=== PATIENT | female | born 1975 | race American Indian/Alaskan Native ===

== ENCOUNTER 2018-08-06 22:35 | Emergency (ER) | payer OTHER, SELFPAY ==
[2018-08-06 22:41] VITALS: BP 172/92; PULSE 94; RESP 20; O2SAT 97
[2018-08-06 22:43] VITALS: TEMP 36.7
--- NOTE | 2018-08-06 22:46 | ED_ITS ---
HPI - Anxiety General Chief Complaint: Anxiety Stated Complaint: FEELS TINGLY IN FACE Time Seen by Provider: 08/06/18 22:45 Source: patient Mode of arrival: ambulatory Limitations: no limitations History of Present Illness HPI narrative: Patient is a 43-year-old female with history of anxiety presenting with tingling in her face. She states she has not been feeling quite right some nasal congestion for the past couple days. She took all over- the-counter nasal spray to help or with some congestion all and her inhaler all same time. She started feeling her heart palpating. She then took her clonazepam but still felt significant tingling in her face. She at no point had to clear cramping in her hands. She felt her heart racing fast and as though she could not breathe. She feels as though her clonazepam may be kicking in his and he is feeling much better. She has not had any fever or chills no headache no neck pain no sore throat. She denies any cough or shortness of breath. She feels like she was going into a full on panic attack. She is dealing with a lot of grief. She lost both her parents within 16 months of each other. MD complaint: anxiety Onset (ago): minute(s) Symptoms: perioral numbness/tingling Severity: mild Place: home Related Data Previous Rx's Medication Instructions Recorded montelukast [Singulair] 10 mg PO QDAY #30 tab 08/03/17 albuterol sulfate [Ventolin HFA] 2 puff INH Q4HP #1 inh 08/30/17 cetirizine 10 mg PO SEE INSTRUCTIONS #30 tab 08/30/17 ibuprofen 800 mg PO Q8HP PRN #30 tab 08/30/17 omeprazole 40 mg PO HS #30 cap 08/30/17 clonazepam 0 mg PO BIDP PRN #30 tab 11/01/17 meloxicam [Mobic] 15 mg PO [facility] #14 tab 01/03/18 Allergies Allergy/AdvReac Type Severity Reaction Status Date / Time ciprofloxacin Allergy Mild GI UPSET Unverified 01/30/18 12:21 codeine AdvReac Unknown STOMACH Unverified 01/30/18 12:21 Review of Systems Review of Systems GENERAL: Denies chills, fatigue, malaise, fever, sweats, travel HEENT: Denies sinus pain, ear pain, sore throat, difficulty swallowing, neck pain RESPIRATORY: Denies dyspnea, cough, wheezing, hemoptysis, sputum. CARDIOVASCULAR: Denies chest pain, palpitations, orthopnea, edema GASTROINTESTINAL: Denies nausea, vomiting, abdominal pain, diarrhea, constipation, melena. : Denies dysuria, frequency, incontinence, hematuria, urinary retention, flank pain. MUSCULOSKELETAL: Denies weakness, joint pain, or bony pain SKIN: No rash, no erythema, no pruritus NEUROLOGIC: Denies weakness, dizziness, headache, numbness, change in speech, confusion PSYCHIATRIC: see HPI 12 point review of systems is negative except for those stated above and HPI PFSH Medical History Anxiety (Acute) Social History marital status: Smoking Status: Never smoker alcohol intake: current Exam Initial Vital Signs Initial Vital Signs: Vital Signs Pulse Rate 94 H 08/06/18 22:41 Respiratory Rate 20 08/06/18 22:41 Blood Pressure 172/92 H 08/06/18 22:41 Pulse Oximetry 97 08/06/18 22:41 GENERAL: Overweight female appears in no acute distress HEENT: Head atraumatic,EOMI, pupils reactive, minimal frontal sinus tenderness CARDIOVASCULAR: Regular rate and rhythm without murmurs, rubs or gallops. RESPIRATORY: Breath sounds equal bilaterally, no wheezes rales or rhonchi. ABDOMEN: Soft, nontender. Normoactive bowel sounds all 4 quadrants. No guarding or rebound. EXTREMITIES: Normal range of motion, no clubbing or edema. Neurovascularly intact NEUROLOGICAL: Alert and oriented x4.Normal gait and speech. Cranial nerves II through XII grossly intact. Good [id number], good [id number], strength equal bilaterally, no dysarthria or aphasia, sensation in tact to soft touch bilaterally, no visual changes, no facial droop SKIN: Warm, dry, no laceration, no petechiae, no rashes or lesions. Course Orders Ordered: ED Orders 08/06/18 22:47 EKG-12 Lead Stat Vital Signs - 8 hr 08/06/18 22:41 08/06/18 22:43 Temperature 98.1 F Pulse Rate 94 H Respiratory Rate 20 Blood Pressure 172/92 H Pulse Oximetry 97 MDM - Anxiety ECG Data Attestation: I personally reviewed and interpreted this ECG as follows: Interpretation: Sinus rhythm rate 82 CO interval 161 Q-wave noted in lead [address] depressions, no T-wave inversion MDM Narrative Medical decision making narrative: Long discussion with patient. She overall feels like this was anxiety. His she is feeling better. I offered blood work: This time she feels like she is ready and able to go. Discharge Plan Departure Patient Disposition: Home Clinical Impression: Acute anxiety Discharge Date/Time: 08/06/18 23:20 Interventions: ED Discharge Assessment Last Done: 08/06/18 23:20 Instructions: Anxiety Disorders, Anxiety and Panic Attacks (Alternative Therapy ) Activity Restrictions/Additional Instructions: You have been diagnosed with Anxiety Recommend talking with therapist * Please continue your medications as previously prescribed * Follow up with your primary provider in 2-3 days * REturn to ED if you should have and new or worsening symptoms Prescriptions: No Action montelukast [Singulair] 10 MG tablet 10 mg PO QDAY Qty: 30 RF: 11 cetirizine 10 MG tablet 10 mg PO SEE INSTRUCTIONS Qty: 30 RF: 11 ibuprofen 800 MG tablet 800 mg PO Q8HP PRNQty: 30 RF: 1 omeprazole 40 MG capsule,delayed release(DR/EC) 40 mg PO HS Qty: 30 RF: 3 albuterol sulfate [Ventolin HFA] 90 MCG/PUFF HFA aerosol inhaler 2 puff INH Q4HP Qty: 1 RF: 11 clonazepam 0.5 MG tablet PO BIDP PRNQty: 30 RF: 2 meloxicam [Mobic] 15 MG tablet 15 mg PO [facility] Qty: 14 RF: 0 Referrals: [facility] [Provider Group] [facility] [Provider Group]
== END 2018-08-06 23:20 | disposition home or self-care (01) ==
PROVIDERS: Emergency Provider Emergency Medicine; Family Provider Family Medicine; PCP Family Medicine
DX: F41.9 Anxiety disorder, unspecified (principal)
CPT/HCPCS: 93005; 93010; 99282; 99283

== ENCOUNTER 2019-02-14 22:33 | Emergency (ER) | payer OTHER, SELFPAY ==
[2019-02-14 23:15] VITALS: BP 142/83; PULSE 82; RESP 15; TEMP 36.9; O2SAT 100; BMI 45.5
--- NOTE | 2019-02-14 23:30 | ED_ITS ---
HPI - Extremity Injury (Lower) General Chief Complaint: Extremity Injury, Lower Stated Complaint: RIGHT BIG TOE INGROWN NAIL Time Seen by Provider: 02/14/19 23:11 Source: patient Mode of arrival: ambulatory Limitations: no limitations History of Present Illness HPI Narrative: Patient is a 44-year-old female with pain in her right great toe. She states that she thinks that it is an ingrown toenail. She has had an ingrown toenail in the past but has many years ago. She states that is causing throbbing up her feet into her calf. She has not tried anything for the symptoms prior to arrival. Related Data Previous Rx's Medication Instructions Recorded montelukast [Singulair] 10 mg PO QDAY #30 tab 08/03/17 albuterol sulfate [Ventolin HFA] 2 puff INH Q4HP #1 inh 08/30/17 cetirizine 10 mg PO SEE INSTRUCTIONS #30 tab 08/30/17 ibuprofen 800 mg PO Q8HP PRN #30 tab 08/30/17 omeprazole 40 mg PO HS #30 cap 08/30/17 clonazepam 0 mg PO BIDP PRN #30 tab 11/01/17 meloxicam [Mobic] 15 mg PO [facility] #14 tab 01/03/18 Allergies Allergy/AdvReac Type Severity Reaction Status Date / Time ciprofloxacin Allergy Mild GI UPSET Unverified 01/30/18 12:21 codeine AdvReac Unknown STOMACH Unverified 01/30/18 12:21 Review of Systems Constitutional Denies fever(s) and Denies headache(s) ENT Ears, Nose, Mouth, and Throat: Denies headache(s) Cardiovascular Denies chest pain and Denies dyspnea Respiratory Denies dyspnea Gastrointestinal Gastrointestinal: Denies abdominal pain Musculoskeletal Denies myalgias and Denies arthralgias Comments: Right great toe pain Integumentary/Breasts Comments: Redness around the great toe Neurologic Denies headache(s) Hematologic/Lymphatic Denies easy bleeding and Denies easy bruising [facility] Medical History Anxiety (Acute) Social History marital status: Smoking Status: Never smoker alcohol intake: current Social History (Reviewed 02/15/19 @ 03:15 by PARAG Hooks marital status: Smoking Status: Never smoker alcohol intake: current Exam Initial Vital Signs Initial Vital Signs: Vital Signs Temperature 98.5 F 02/14/19 23:15 Pulse Rate 82 02/14/19 23:15 Respiratory Rate 15 02/14/19 23:15 Blood Pressure 142/83 H 02/14/19 23:15 Pulse Oximetry 100 02/14/19 23:15 Resp Effort & Inspection: normal respiratory effort Skin Other: Patient with some redness around the lateral aspect of the right great toenail. Neuro Sensory Exam: no sensory deficits noted Extrem Other: Patient with tenderness on the lateral aspect of the right great toenail with redness and what appears to be an ingrown toenail. Procedures [facility] Procedure Name of Procedure: Ingrown toenail removal right great toe Side (if applicable): left Location: Great toe Time out performed: Yes Technique/Description of procedure performed: The right great toe was numbed with 7 cc of 1% lidocaine without epinephrine. The lateral half of the right great toenail was completely removed. Patient tolerated procedure: Well Complications: none Course Orders Ordered: Discontinued Medications Hydrocodone Bitart/Acetaminophen (Vicodin Prepack) 1 bottle [facility] ONE Stop: 02/15/19 00:01 Last Admin: 02/15/19 00:02 Dose: 1 bottle Vital Signs - 8 hr 02/14/19 23:15 02/15/19 00:12 Temperature 98.5 F Pulse Rate 82 82 Respiratory Rate 15 15 Blood Pressure 142/83 H 142/83 H Pulse Oximetry 100 100 MDM - Extremity Injury (Lower) MDM Narrative Medical decision making narrative: Patient with history and physical consistent with an ingrown right great toenail. This was removed as described above. Patient tolerated the procedure well. She was informed that there is the potential with doing this procedure that the right great toenail does not grow back looking ?normal? patient expressed understanding. There is only minimal redness surrounding the area and I do not think this is an infection. I think that is just inflammation secondary to the ingrown toenail. She was given pain medications. She was given care instructions and return precautions. She expressed understanding and agreement with plan. Discharge Plan Departure Patient Disposition: Home Clinical Impression: Ingrowing right great toenail Discharge Date/Time: 02/15/19 00:01 Interventions: ED Discharge Assessment Last Done: 02/15/19 00:12 Instructions: DI for Ingrown Toenail Removal Activity Restrictions/Additional Instructions: You can use the pain medication for the next day as needed. After that use Tylenol and/or Motrin. You can shower like normal. do not soak your foot until the nail is healed. Return to the emergency department for any new or worsening symptoms Prescriptions: No Action montelukast [Singulair] 10 MG tablet 10 mg PO QDAY Qty: 30 RF: 11 cetirizine 10 MG tablet 10 mg PO SEE INSTRUCTIONS Qty: 30 RF: 11 ibuprofen 800 MG tablet 800 mg PO Q8HP PRNQty: 30 RF: 1 omeprazole 40 MG capsule,delayed release(DR/EC) 40 mg PO HS Qty: 30 RF: 3 albuterol sulfate [Ventolin HFA] 90 MCG/PUFF HFA aerosol inhaler 2 puff INH Q4HP Qty: 1 RF: 11 clonazepam 0.5 MG tablet PO BIDP PRNQty: 30 RF: 2 meloxicam [Mobic] 15 MG tablet 15 mg PO [facility] Qty: 14 RF: 0 Referrals: Orestes Hussein MD [Primary Care Provider] -
[2019-02-15] MEDS: HYDROCODONE/ACET 5/325 PREPACK 1 BOTTLE MISC (00:02)
[2019-02-15 00:12] VITALS: BP 142/83; PULSE 82; RESP 15; O2SAT 100
== END 2019-02-15 00:01 | disposition home or self-care (01) ==
PROVIDERS: Emergency Provider Emergency Medicine; PCP Family Medicine
DX: L60.0 Ingrowing nail (principal); M79.674 Pain in right toe(s); M79.671 Pain in right foot; M79.661 Pain in right lower leg
CPT/HCPCS: 11750; 99282; 99283

== ENCOUNTER 2019-08-07 10:52 | Emergency (ER) | payer OTHER, SELFPAY ==
[2019-08-07 11:20] VITALS: BP 140/84; PULSE 80; RESP 18; TEMP 36.2; O2SAT 98
--- NOTE | 2019-08-07 14:26 | ED.BACK ---
HPI - Back Pain/Injury General Chief Complaint: Back Pain/Injury Stated Complaint: left low back pain/pulled muscle? this am Time Seen by Provider: 08/07/19 11:32 Source: patient Limitations: no limitations Related Data Home Medications Medication Instructions Recorded Confirmed albuterol sulfate [ProAir HFA] 1 puff INHALATION Q4H PRN 08/07/19 08/07/19 cetirizine 10 mg PO DAILY 08/07/19 08/07/19 cholecalciferol (vitamin D3) 1,000 unit PO DAILY 08/07/19 08/07/19 ibuprofen 800 mg PO Q6H PRN 08/07/19 08/07/19 montelukast [Singulair] 10 mg PO DAILY 08/07/19 08/07/19 Previous Rx's Medication Instructions Recorded omeprazole 40 mg PO HS #30 cap 08/30/17 clonazepam 0 mg PO BIDP PRN #30 tab 11/01/17 meloxicam [Mobic] 15 mg PO [facility] #14 tab 01/03/18 Allergies Allergy/AdvReac Type Severity Reaction Status Date / Time ciprofloxacin Allergy Mild GI UPSET Unverified 01/30/18 12:21 codeine AdvReac Unknown STOMACH Unverified 01/30/18 12:21 Patient History Social History marital status: Smoking Status: Never smoker alcohol intake: current Social History marital status: Smoking Status: Never smoker alcohol intake: current alcohol intake frequency: holidays/special occasions only Substance Use Type: does not use Exam Narrative Exam Narrative: GENERAL APPEARANCE: Patient sitting comfortably, in no distress. PULMONARY: Lungs clear to auscultation bilaterally CV: Regular rhythm regular without murmur, normal S1 and S2, no S3 or S4 MUSCULOSKELETAL: No point tenderness over the lumbar spine. Full AROM of trunk. Normal sit:stand and gait. Lower extremity strength 5/5 bilateral hip flexors, knee extensors, foot plantar flexion. Negative modified straight leg raise NEUROLOGIC: Bilateral patellar and Achilles DTRs 2+ Initial Vital Signs Initial Vital Signs: Vital Signs Temperature 97.2 F L 08/07/19 11:20 Pulse Rate 80 08/07/19 11:20 Respiratory Rate 18 08/07/19 11:20 Blood Pressure 140/84 08/07/19 11:20 Pulse Oximetry 98 08/07/19 11:20 Course Vital Signs Vital signs: Vital Signs - 8 hr 08/07/19 11:20 Temperature 97.2 F L Pulse Rate 80 Respiratory Rate 18 Blood Pressure 140/84 Pulse Oximetry 98 Discharge Plan Departure Prescriptions: No Action omeprazole 40 MG capsule,delayed release(DR/EC) 40 mg PO HS Qty: 30 RF: 3 clonazepam 0.5 MG tablet 0 mg PO BIDP PRNQty: 30 RF: 2 meloxicam [Mobic] 15 MG tablet 15 mg PO [facility] Qty: 14 RF: 0 ibuprofen 800 mg tablet 800 mg PO Q6H PRN (Reason: pain) RF: 0 albuterol sulfate [ProAir HFA] 90 mcg/actuation HFA aerosol inhaler 1 puff INHALATION Q4H PRN (Reason: asthma) RF: 0 cetirizine 10 MG tablet 10 mg PO DAILY RF: 0 montelukast [Singulair] 10 MG tablet 10 mg PO DAILY RF: 0 cholecalciferol (vitamin D3) 1,000 unit (25 mcg) tablet 1,000 unit PO DAILY RF: 0
== END 2019-08-07 15:15 | disposition left against medical advice (07) ==
PROVIDERS: Emergency Provider Internal Medicine
DX: M54.9 Dorsalgia, unspecified (principal)
CPT/HCPCS: 99282

== ENCOUNTER 2019-09-04 21:51 | Emergency (ER) | payer OTHER, SELFPAY ==
[2019-09-04 22:02] VITALS: BP 166/78; PULSE 94; RESP 21; TEMP 36.8; O2SAT 100; BMI 45.8
--- NOTE | 2019-09-04 22:15 | PC.NURSE ---
Pt reports she has been feeling anxious with palpitations for about 1 week. states the holidays are coming and i lost both my parents within 2 years and i just lost my closet sister in may reports it happens intermittently. shes states she is feeling fatigued and a lump in her throat. denies chest pain, just generalized chest discomfort. c/o headache not relieved with tylenol x 2 doses. NSR 94. skin PWD. no dependent swelling noted. AAOx3 ambulatory. on cardiac monitoring, EKG obtained and IV placed and labs drawn.
[2019-09-04 22:34] VITALS: BP 166/78; PULSE 91; RESP 19; O2SAT 100
--- NOTE | 2019-09-04 22:38 | DI.RAD.S_ITS ---
PROCEDURE: XR CHEST 1V INDICATIONS: palpitations TECHNIQUE: One view of the chest was acquired. COMPARISON: None. FINDINGS: Surgical changes and devices: None. Lungs and pleura: Lungs are clear. No pleural effusions or pneumothorax. Mediastinum: Mediastinal contours appear normal. Heart size is normal. Bones and chest wall: No suspicious bony lesions. Overlying soft tissues appear unremarkable. IMPRESSION: No acute cardiopulmonary abnormality. This report is concordant with the overnight preliminary interpretation. Dictated by: Uriel Madera M.D. on 09/05/2019 at 8:16 Approved by: Uriel Madera M.D. on 09/05/2019 at 8:17
--- NOTE | 2019-09-04 22:38 | DI.CT.S_ITS ---
PROCEDURE: CT HEAD/BRAIN WO CON INDICATIONS: headache TECHNIQUE: Noncontrast 4.5 mm thick angled axial sections acquired from the foramen magnum to the vertex, with coronal and sagittal reformats. For radiation dose reduction, the following was used: automated exposure control, adjustment of mA and/or kV according to patient size. COMPARISON: None. FINDINGS: Image quality: Excellent. CSF spaces: Basal cisterns are patent. No extra-axial fluid collections. Ventricles are normal in size and shape. Brain: No midline shift. No intracranial masses or hemorrhage. Scales-white matter interface is normal. Skull and face: Calvarium and visualized facial bones are intact, without suspicious lesions. Sinuses: There is an air-fluid level in the right maxillary sinus. Bilateral ethmoid and maxillary sinus mucosal thickening. Mastoids are clear. IMPRESSION: 1. No acute intracranial abnormalities. 2. Paranasal sinus disease. Dictated by: Viral Arias M.D. on 09/05/2019 at 7:48 Approved by: Viral Arias M.D. on 09/05/2019 at 7:49
--- NOTE | 2019-09-04 22:40 | ED.ARRPALP ---
HPI - Arrhythmia/Palpitations General Chief Complaint: Arrhythmia/Palpitations Stated Complaint: states rapid heartrate Time Seen by Provider: 09/04/19 22:12 Source: patient Mode of arrival: Ambulatory Limitations: no limitations History of Present Illness HPI narrative: Patient is a 44-year-old female who presents with a variety of complaints. She says that she has had a headache ongoing for the last to 3 days. It is kind of in the center of her head she typically does not get headaches. She can normally take Tylenol when she feels a headache coming on but it did not help. Today she felt like her headache was worse she started having chest pain and heart palpitations and felt like she might be having some anxiety. Her palpitations and chest discomfort have improved since being in the ED however she continues to have a headache. She denies any change in vision numbness tingling or weakness in her extremities. No neck pain or fevers. No nausea or vomiting. MD complaint: rapid heart beat Related Data Home Medications Medication Instructions Recorded Confirmed albuterol sulfate [ProAir HFA] 1 puff INHALATION Q4H PRN 08/07/19 08/07/19 cetirizine 10 mg PO DAILY 08/07/19 08/07/19 cholecalciferol (vitamin D3) 1,000 unit PO DAILY 08/07/19 08/07/19 ibuprofen 800 mg PO Q6H PRN 08/07/19 08/07/19 montelukast [Singulair] 10 mg PO DAILY 08/07/19 08/07/19 Previous Rx's Medication Instructions Recorded omeprazole 40 mg PO HS #30 cap 08/30/17 clonazepam 0 mg PO BIDP PRN #30 tab 11/01/17 meloxicam [Mobic] 15 mg PO AMCC #14 tab 01/03/18 Allergies Allergy/AdvReac Type Severity Reaction Status Date / Time ciprofloxacin Allergy Mild GI UPSET Unverified 01/30/18 12:21 codeine AdvReac Unknown STOMACH Unverified 01/30/18 12:21 Review of Systems Review of Systems ROS Unobtainable: All systems reviewed & are unremarkable except as noted in HPI and below Constitutional Constitutional: Denies chills, Denies fever(s), Reports headache(s), Denies lethargy and Denies weakness Eyes Eyes: Denies change in vision, Denies eye discharge, Denies irritation and Denies loss of vision ENT Ears, Nose, Mouth, and Throat: Denies change in voice, Reports headache(s), Denies neck pain and Denies sore throat Cardiovascular Cardiovascular: Reports as per HPI, Denies dyspnea and Denies dyspnea on exertion Respiratory Respiratory: Denies cough, Denies dyspnea, Denies dyspnea on exertion and Denies wheezing Gastrointestinal Gastrointestinal: Denies abdominal pain, Denies change in bowel habits, Denies diarrhea, Denies nausea and Denies vomiting Genitourinary Genitourinary: Denies hematuria, Denies flank pain, Denies urinary incontinence and Denies urinary urgency Musculoskeletal Musculoskeletal: Denies neck pain Integumentary/Breasts Skin/Breast: Denies pruritus, Denies erythema, Denies rash and Denies wounds Neurologic Neurologic: Reports as per HPI, Reports headache(s), Denies loss of vision and Denies weakness Allergic/Immunologic Allergic/Immunologic: Denies wheezing Patient History Medical History Anxiety (Acute) Social History marital status: Smoking Status: Never smoker alcohol intake: current alcohol intake frequency: holidays/special occasions only Substance Use Type: does not use Exam Initial Vital Signs Initial Vital Signs: Vital Signs Temperature 98.2 F 09/04/19 22:02 Pulse Rate 94 H 09/04/19 22:02 Respiratory Rate 21 09/04/19 22:02 Blood Pressure 166/78 H 09/04/19 22:02 Pulse Oximetry 100 09/04/19 22:02 GENERAL: Well-appearing, well-nourished and in no acute distress. HEENT: Head atraumatic,EOMI, pupils reactive, face symmetric, moist mucous membranes , no meningeal neck is supple CARDIOVASCULAR: Regular rate and rhythm without murmurs, rubs or gallops. RESPIRATORY: Breath sounds equal bilaterally, no wheezes rales or rhonchi. ABDOMEN: Soft, nontender. Normoactive bowel sounds all 4 quadrants. No guarding or rebound. EXTREMITIES: Normal range of motion, no clubbing or edema. Neurovascularly intact NEUROLOGICAL: Alert and oriented x4.Normal gait and speech. Assistant [employer]quet [employer] strength equal bilaterally ambulatory in the ED without difficulty SKIN: Warm, dry, no laceration, no petechiae, no rashes or lesions. Scores NIH Stroke Scale Level of Conciousness: Alert, keenly responsive Ask month/age: Answers both questions correctly. Open/close eyes, close hand: Performs both tasks correctly Best gaze horizontal: Normal Visual read: No visual loss Facial palsy: Normal symetrical movement Left arm drift: No drift for full 10 sec Right arm drift: No drift for full 10 sec Left leg drift: No drift for full 10 sec Right leg drift: No drift for full 10 sec Limb ataxia: Absent Sensory on face/arms/legs: Normal, no sensory loss Best language: No aphasia, normal Dysarthria: Normal Extinction or inattention: No abnormality Total NIH Stroke scale score: 0 Course Orders Ordered: ED Orders 09/04/19 22:11 Complete Blood Count AUTO DIFF Stat Comprehensive Metabolic Panel Stat Lipase Stat Troponin & CK Cardiac Panel Stat 09/04/19 22:38 CT head/brain wo con Stat XR chest 1V Stat EKG-12 Lead Stat 09/04/19 22:40 Urine Culture Stat Discontinued Medications Sodium Chloride (Normal Saline 0.9%) 1,000 mls @ 1,000 mls/hr IV BOLUS ONE Stop: 09/04/19 23:37 Last Infusion: 09/05/19 00:10 Dose: 0 mls/hr Documented by: Admin: 09/04/19 22:41 Dose: 1,000 mls/hr Documented by: ELICEO Ketorolac Tromethamine (Toradol) 30 mg IV NOW ONE Stop: 09/04/19 23:52 Last Admin: 09/05/19 00:04 Dose: 30 mg Documented by: ELICEO Vital Signs Vital signs: Vital Signs - 8 hr 09/04/19 22:02 09/04/19 22:34 09/04/19 23:30 Temperature 98.2 F Pulse Rate 94 H 91 H 89 Respiratory Rate 21 19 16 Blood Pressure 166/78 H Blood Pressure [Left Arm] 166/78 H 136/72 Pulse Oximetry 100 100 98 09/05/19 00:45 Temperature Pulse Rate 89 Respiratory Rate 19 Blood Pressure 129/76 Blood Pressure [Left Arm] Pulse Oximetry 99 MDM - Arrhythmia/Palpitations Lab Data Attestation: I reviewed the patient's lab results. Result diagrams: 09/04/19 22:11 09/04/19 22:11 Labs: Lab Results 09/04/19 09/04/19 Range/Units 22:11 22:11 WBC 8.8 (4.5-11.0) X10^3/uL RBC 4.53 (4.0-5.2) X10^6/uL Hgb 11.4 L (12.0-16.0) g/dL Hct 34.6 L (36-46) % MCV 76.4 L (80-100) fL MCH 25.1 L (26-34) PG MCHC 32.9 (30-36) % RDW 15.4 H (11.6-14.8) % Plt Count 361 (150-400) X10^3/uL Neut % (Auto) 63.3 (50-75) % Lymph % (Auto) 26.5 (25-40) % [place] % (Auto) 7.3 (3-14) % Eos % (Auto) 1.9 L (2-4) % Baso % (Auto) 1.0 (0-2) % Neut # (Auto) 5600 (0212-9943) /uL Lymph # (Auto) 2300 (8912-3917) /uL [place] # (Auto) 600 (0-900) /uL Eos # (Auto) 200 (0-450) /uL Baso # (Auto) 100 (0-100) /uL Sodium 139 (137-145) mmol/L Potassium 3.5 (3.4-5.1) mmol/L Chloride 105 (98-107) mmol/L Carbon Dioxide 30 (22-32) mmol/L BUN 4 L (7-17) mg/dL Creatinine 1.20 H (0.52-1.04) mg/dL Estimated GFR 48.8 L (>60) mL/min BUN/Creatinine Ratio 3.3 L (6-22) Glucose 110 H (70-100) mg/dL Calcium 8.2 L (8.4-10.2) mg/dL Total Bilirubin 0.4 (0.2-1.3) mg/dL AST 40 H (14-36) IU/L ALT 17 (<35) IU/L Alkaline Phosphatase 121 (38-126) U/L Total Creatine Kinase 86 (30-135) U/L CK-MB (CK-2) TNP CK-MB (CK-2) Rel Index TNP Troponin I < 0.012 (0.01-0.034) ng/mL Total Protein 7.6 (6.3-8.2) g/dL Albumin 3.9 (3.5-5.0) g/dL Globulin 3.7 (1.7-4.1) g/dL Albumin/Globulin Ratio 1.1 (1.0-2.8) Lipase 140 (23-300) U/L Point of Care Testing Test Results Negative Urine Dip Bedside Urine Glucose Negative Bedside Urine Bilirubin - Negative Bedside Urine Ketone - Negative Urine Specific [place] 1.010 Bedside Urine Occult Blood + Bedside Urine pH 6.0 Bedside Urine Protein - Negative Bedside Urine Urobilinogen - Negative Bedside Urine Nitrite - Negative Bedside Urine Leukocytes ++ 125 Esterase Imaging Data Chest x-ray: Attestation: I personally reviewed and interpreted this imaging study as follows: My impression: No acute cardiopulmonary process CT scan - head: Radiologist's impression: Preliminary report No intracranial hemorrhage or mass effect. Chronic sinusitis ECG Data Attestation: I personally reviewed and interpreted this ECG as follows: Prior ECG tracings: available for review Interpretation: Normal sinus rhythm rate 92 p.r. interval 180 QRS [address] elevations or depression T-wave inversion noted in lead 3 only similar to previous EKG MDM Narrative Medical decision making narrative: Patient has had headache ongoing for last 2 days it got worse today. She does not typically get headaches. CT was negative. Her heart palpitations and chest discomfort improved almost immediately when she got into the ED. Troponin EKG are all negative. She has no focal deficits. His she received Toradol and IV fluids and is overall feeling much better Discharge Plan Departure Patient Disposition: Home Clinical Impression: Heart palpitations Headache Qualifiers: Headache type: unspecified Headache chronicity pattern: acute headache Intractability: not intractable Qualified Code(s): R51 - Headache Discharge Date/Time: 09/05/19 00:47 Instructions: DI for Headache, DI for Palpitations Activity Restrictions/Additional Instructions: *You have been diagnosed with palpitations *What to do: Blood work and CT scan today are reassuring. *Continue to take medications as directed *Follow up with your primary care provider in 2-3 days *Return to ER if you should have increasing headache weakness chest pain heart palpitations dizziness lightheadedness passing or any new, worsening or concerning symptom Prescriptions: No Action omeprazole 40 MG capsule,delayed release(DR/EC) 40 mg PO HS Qty: 30 RF: 3 clonazepam 0.5 MG tablet 0 mg PO BIDP PRNQty: 30 RF: 2 meloxicam [Mobic] 15 MG tablet 15 mg PO AMCC Qty: 14 RF: 0 ibuprofen 800 mg tablet 800 mg PO Q6H PRN (Reason: pain) RF: 0 albuterol sulfate [ProAir HFA] 90 mcg/actuation HFA aerosol inhaler 1 puff INHALATION Q4H PRN (Reason: asthma) RF: 0 cetirizine 10 MG tablet 10 mg PO DAILY RF: 0 montelukast [Singulair] 10 MG tablet 10 mg PO DAILY RF: 0 cholecalciferol (vitamin D3) 1,000 unit (25 mcg) tablet 1,000 unit PO DAILY RF: 0
[2019-09-04] MEDS: SODIUM CHLORIDE 0.9% 1,000 ML 1000 ML IV (22:41)
[2019-09-04 22:53] LABS: Add Manual Diff / Slide Review NO; Basophils Absolute Auto 100 /uL (0-100); Eosinophils Absolute Auto 200 /uL (0-450); Eosinophils Percent Auto 1.9 % (2-4); Hematocrit 34.6 % (36-46); Hemoglobin 11.4 g/dL (12.0-16.0); Lymphocytes Absolute Auto 2300 /uL (1100-4500); Lymphocytes Percent Auto 26.5 % (25-40); Mean Corpuscular HGB Conc 32.9 % (30-36); Mean Corpuscular Hemoglobin 25.1 PG (26-34); Mean Corpuscular Volume 76.4 fL (80-100); Monocytes Absolute Auto 600 /uL (0-900); Monocytes Percent Auto 7.3 % (3-14); Neutrophils Absolute Auto 5600 /uL (1500-7000); Neutrophils Percent Auto 63.3 % (50-75); Platelet Count 361 X10^3/uL (150-400); Red Blood Cell Count 4.53 X10^6/uL (4.0-5.2); Red Cell Distribution Width 15.4 % (11.6-14.8); White Blood Cell Count 8.8 X10^3/uL (4.5-11.0)
[2019-09-04 22:58] LABS: Alanine Aminotransferase 17 IU/L (<35); Albumin 3.9 g/dL (3.5-5.0); Albumin Globulin Ratio 1.1 (1.0-2.8); Alkaline Phosphatase 121 U/L (38-126); Aspartate Aminotransferase 40 IU/L (14-36); BUN Creatinine Ratio 3.3 (6-22); Bilirubin Total 0.4 mg/dL (0.2-1.3); Blood Urea Nitrogen 4 mg/dL (7-17); Calcium 8.2 mg/dL (8.4-10.2); Carbon Dioxide 30 mmol/L (22-32); Chloride 105 mmol/L (98-107); Creatine Kinase 86 U/L (30-135); Estimated Glomerular Filt Rate 48.8 mL/min (>60); Globulin 3.7 g/dL (1.7-4.1); Glucose 110 mg/dL (70-100); HEMOLYSIS < 15 (0-50); Lipase 140 U/L (23-300); Potassium 3.5 mmol/L (3.4-5.1); Sodium 139 mmol/L (137-145); Total Protein 7.6 g/dL (6.3-8.2)
[2019-09-04 23:10] LABS: Troponin I < 0.012 ng/mL (0.01-0.034)
[2019-09-04 23:30] VITALS: BP 136/72; PULSE 89; RESP 16; O2SAT 98
[2019-09-05] MEDS: KETOROLAC 60 MG/2 ML VIAL 30 MG IV (00:04)
[2019-09-05 00:45] VITALS: BP 129/76; PULSE 89; RESP 19; O2SAT 99
== END 2019-09-05 00:47 | disposition home or self-care (01) ==
PROVIDERS: Emergency Provider Emergency Medicine
DX: R00.2 Palpitations (principal); R51 Headache
CPT/HCPCS: 36415; 70450; 71045; 80053; 81003; 81025; 82550; 82553; 83690; 84484; 85025; 87086; 93005; 93041; 96361; 96374; 99283; 99285; J1885

== ENCOUNTER 2019-10-18 22:38 | Emergency (ER) | payer OTHER, SELFPAY ==
--- NOTE | 2019-10-18 22:39 | ED_ITS ---
HPI - SOB/Dyspnea General Chief Complaint: Upper Respiratory Symptoms Stated Complaint: hard time breathing Time Seen by Provider: 10/18/19 22:39 Source: patient and family Mode of arrival: Ambulatory Limitations: no limitations History of Present Illness HPI Narrative: 44-year-old female never smoker with history of asthma presents with a chief complaint of fever, chills well as headache, sore throat and cough for the past day or 2. She denies any production of sputum. She has had no nausea, vomiting or diarrhea. She has had multiple exposures to ill persons, some of whom have been diagnosed with flu. She denies any recent travel. She denies any change in bowel or urinary habits. MD Complaint: cough and pain with inspiration Onset (ago): day(s) Severity: moderate Consistency/Duration: constant Exacerbating factors: coughing Known history of: asthma Associated symptoms: fever, cough and wheezing Treatment prior to arrival: none Related Data Home oxygen amount: none Home Medications Medication Instructions Recorded Confirmed albuterol sulfate [ProAir HFA] 1 puff INHALATION Q4H PRN 08/07/19 08/07/19 cetirizine 10 mg PO DAILY 08/07/19 08/07/19 cholecalciferol (vitamin D3) 1,000 unit PO DAILY 08/07/19 08/07/19 ibuprofen 800 mg PO Q6H PRN 08/07/19 08/07/19 montelukast [Singulair] 10 mg PO DAILY 08/07/19 08/07/19 Previous Rx's Medication Instructions Recorded omeprazole 40 mg PO HS #30 cap 08/30/17 clonazepam 0 mg PO BIDP PRN #30 tab 11/01/17 meloxicam [Mobic] 15 mg PO [facility]CC #14 tab 01/03/18 doxycycline hyclate 100 mg PO BID #14 tab 10/18/19 oseltamivir [Tamiflu] 75 mg PO BID #10 cap 10/18/19 prednisone 40 mg PO DAILY 4 Days tab 10/18/19 Allergies Allergy/AdvReac Type Severity Reaction Status Date / Time ciprofloxacin Allergy Mild GI UPSET Verified 10/18/19 22:47 codeine AdvReac Unknown STOMACH Verified 10/18/19 22:47 Review of Systems Constitutional Constitutional: Reports chills, Reports fatigue, Reports fever(s), Denies frequent falls, Reports headache(s), Denies lethargy and Denies weakness Eyes Eyes: Denies change in vision, Denies eye discharge, Denies irritation and Denies loss of vision ENT Ears, Nose, Mouth, and Throat: Denies change in voice, Denies dizziness, Reports headache(s), Denies neck pain, Reports sore throat and Denies throat swelling Cardiovascular Cardiovascular: Denies chest pain, Denies irregular heart rhythm, Denies lightheadedness, Denies palpitations, Reports dyspnea, Denies dyspnea on exertion and Denies orthopnea Respiratory Respiratory: Reports cough, Reports dyspnea, Denies dyspnea on exertion and Reports wheezing Gastrointestinal Gastrointestinal: Denies abdominal pain, Denies change in bowel habits, Denies diarrhea, Denies nausea and Denies vomiting Genitourinary Genitourinary: Denies hematuria, Denies flank pain, Denies urinary incontinence and Denies urinary urgency Musculoskeletal Musculoskeletal: Denies back pain, Denies muscle weakness, Denies neck pain, Denies numbness and Denies tingling Integumentary/Breasts Skin/Breast: Denies pruritus, Denies erythema, Denies rash and Denies wounds Neurologic Neurologic: Denies behavioral changes, Denies confusion, Denies dizziness, Denies frequent falls, Reports headache(s), Denies loss of vision, Denies numbness, Denies tingling and Denies weakness Psychiatric Psychiatric: Denies anxiety, Denies behavioral changes, Denies confusion, Denies depression, Denies homicidal ideation and Denies suicidal ideation Endocrine Endocrine: Reports fatigue, Denies flushing and Denies palpitations Hematologic/Lymphatic Hematologic/Lymphatic: Denies easy bruising Allergic/Immunologic Allergic/Immunologic: Denies urticaria, Denies throat swelling and Reports wheezing Patient History Medical History Anxiety (Acute) Social History marital status: Smoking Status: Never smoker alcohol intake: current Smoking Status: Never smoker alcohol intake frequency: holidays/special occasions only Substance Use Type: does not use Exam Narrative Exam Narrative: GENERAL: [44] year old patient appears stated age. Well- nourished, well-developed patient, in mild distress. Obviously not feeling well but in no significant respiratory distress HEAD: Atraumatic. Normocephalic. EYES: Pupils equal round and reactive. Extraocular motions intact. No scleral icterus. No injection or drainage. ENT: Nose without bleeding, purulent drainage. Throat without erythema, tonsillar hypertrophy or exudate. Airway patent. NECK: Trachea midline. Non tender CARDIOVASCULAR: Regular rate and rhythm without murmurs, gallops, or rubs. RESPIRATORY: Faint expiratory wheeze bilaterally, no crackles or rhonchi noted GASTROINTESTINAL: Abdomen soft, non-tender, nondistended. EXTREMITIES: No edema or joint tenderness. BACK: Nontender without deformity or crepitance. No flank tenderness. NEURO: AOx3. SKIN: No rash or erythema of visible areas Initial Vital Signs Initial Vital Signs: Vital Signs Temperature 98.4 F 10/18/19 22:47 Pulse Rate 98 H 10/18/19 22:47 Respiratory Rate 15 10/18/19 22:47 Blood Pressure 181/84 H 10/18/19 22:47 Pulse Oximetry 100 10/18/19 22:47 Course Course Course Narrative: Patient requesting bronchodilator, she does state she feels a bit better after the DuoNeb. Orders Ordered: ED Orders 10/18/19 22:43 Influenza A & B (PCR) Stat 10/18/19 22:44 XR chest 1V Stat 10/18/19 22:47 EKG-12 Lead Routine Discontinued Medications Albuterol/Ipratropium (Duoneb) 3 ml INH NOW ONE Stop: 10/18/19 23:24 Last Admin: 10/18/19 23:28 Dose: 3 ml Documented by: RAQUEL Doxycycline Hyclate (Vibramycin) 100 mg PO NOW ONE Stop: 10/18/19 23:37 Last Admin: 10/18/19 23:55 Dose: 100 mg Documented by: RAQUEL Oseltamivir Phosphate (Tamiflu) 75 mg PO NOW ONE Stop: 10/18/19 23:22 Last Admin: 10/18/19 23:28 Dose: 75 mg Documented by: RAQUEL Prednisone (Deltasone) 40 mg PO NOW ONE Stop: 10/18/19 23:37 Last Admin: 10/18/19 23:40 Dose: 40 mg Documented by: RAQUEL Vital Signs Vital signs: Vital Signs - 8 hr 10/18/19 22:47 10/18/19 23:33 10/19/19 00:13 Temperature 98.4 F 97.7 F Pulse Rate 98 H 90 108 H Respiratory Rate 15 16 Blood Pressure 181/84 H 160/75 H Pulse Oximetry 100 99 100 MDM - SOB/Dyspnea Lab Data Labs: Lab Results 10/18/19 Range/Units 22:43 Influenza A (RT-PCR) Flu a negative (NEGATIVE) Influenza B (RT-PCR) Flu b positive H (NEGATIVE) Imaging Data Chest x-ray: My Impression: Right middle lobe airspace disease MDM Narrative Medical decision making narrative: Patient has with classic symptoms of flu presents within 48 hours of onset. Chest x-ray may show some airspace disease in the right middle lobe but patient has a very reassuring exam and vitals. She response to bronchodilators. She shows no signs or suggestion of sepsis or suggestion that she would require inpatient. Discharge Plan Departure Patient Disposition: Home Clinical Impression: Influenza B Discharge Date/Time: 10/19/19 00:16 Activity Restrictions/Additional Instructions: *You have been diagnosed with [influenza B with possible pneumonia] *What to do: *Take medications as directed *Follow up with your primary care provider in 2-3 days, call for an appointment. Let them know you were seen in the Emergency Department and that we ask that you be seen in follow up *Return to ER if you should have any new, worsening or concerning symptoms Prescriptions: New oseltamivir [Tamiflu] 75 mg capsule 75 mg PO BID Qty: 10 RF: 0 prednisone 20 mg tablet 40 mg PO DAILY 4 Days RF: 0 doxycycline hyclate 100 mg tablet 100 mg PO BID Qty: 14 RF: 0 No Action omeprazole 40 MG capsule,delayed release(DR/EC) 40 mg PO HS Qty: 30 RF: 3 clonazepam 0.5 MG tablet 0 mg PO BIDP PRNQty: 30 RF: 2 meloxicam [Mobic] 15 MG tablet 15 mg PO [facility]CC Qty: 14 RF: 0 ibuprofen 800 mg tablet 800 mg PO Q6H PRN (Reason: pain) RF: 0 albuterol sulfate [ProAir HFA] 90 mcg/actuation HFA aerosol inhaler 1 puff INHALATION Q4H PRN (Reason: asthma) RF: 0 cetirizine 10 MG tablet 10 mg PO DAILY RF: 0 montelukast [Singulair] 10 MG tablet 10 mg PO DAILY RF: 0 cholecalciferol (vitamin D3) 1,000 unit (25 mcg) tablet 1,000 unit PO DAILY RF: 0
--- NOTE | 2019-10-18 22:44 | DI.RAD.S_ITS ---
PROCEDURE: XR CHEST 1V INDICATIONS: cough, fever, chills TECHNIQUE: One view of the chest was acquired. COMPARISON: [facility], RG, XR CXR 2 VIEW, 10/18/2004, 7:28. [facility], CR, XR CHEST 1V, 09/04/2019, 23:01. FINDINGS: Surgical changes and devices: None. Lungs and pleura: Low lung volumes are noted. This causes a crowded appearance to the lung markings and limits evaluation. On this semiupright portable chest examination, no large pneumothorax or large pleural effusions are seen. No focal infiltrates are seen. Mediastinum: Mediastinal contours appear normal. Heart size is normal. Bones and chest wall: No suspicious bony lesions. Overlying soft tissues appear unremarkable. IMPRESSION: Limited portable chest examination, without a significant cardiopulmonary abnormality identified. Dictated by: Tone Gregg M.D. on 10/19/2019 at 7:10 Approved by: Tone Gregg M.D. on 10/19/2019 at 7:10
[2019-10-18 22:47] VITALS: BP 181/84; PULSE 98; RESP 15; TEMP 36.9; O2SAT 100; BMI 37.0
[2019-10-18 23:16] LABS: Influenza A - CEPHEID Flu A NEGATIVE (NEGATIVE); Influenza B - CEPHEID Flu B POSITIVE (NEGATIVE)
[2019-10-18] MEDS: OSELTAMIVIR 75 MG CAPSULE PO (23:28)
[2019-10-18] MEDS: ALBUTEROL/IPRATROPIUM 3 ML AMPUL INH (23:28)
[2019-10-18 23:33] VITALS: PULSE 90; RESP 16; O2SAT 99
[2019-10-18] MEDS: predniSONE 20 MG TABLET 40 MG PO (23:40)
[2019-10-18] MEDS: DOXYCYCLINE HYCLATE 100 MG TABLET PO (23:55)
[2019-10-19 00:13] VITALS: BP 160/75; PULSE 108; TEMP 36.5; O2SAT 100
--- NOTE | 2019-10-19 07:30 | PC.NURSE ---
Pt called this morning asking for tamiflu rx to be called into a different pharmacy d/t her primary pharmacy being closed. Tamiflu rx called into [facility]
== END 2019-10-19 00:16 | disposition home or self-care (01) ==
PROVIDERS: Emergency Provider Emergency Medicine
DX: J10.1 Influenza due to other identified influenza virus with other respiratory manifestations (principal); R06.02 Shortness of breath
CPT/HCPCS: 71045; 87502; 93005; 94640; 99283

== ENCOUNTER 2020-01-17 01:03 | Emergency (ER) | payer OTHER, SELFPAY ==
[2020-01-17 01:13] VITALS: BP 138/69; PULSE 109; RESP 20; TEMP 36.4; O2SAT 98
--- NOTE | 2020-01-17 01:16 | ED.NAVMDI ---
HPI - Nausea/Vomiting/Diarrhea General Chief complaint: Nausea/Vomiting/Diarrhea Stated complaint: diarrhea/vomiting/abd pain/?food poisoning today Time Seen by Provider: 01/17/20 01:05 Source: patient Mode of arrival: Ambulatory Limitations: no limitations History of Present Illness HPI Narrative: 44-year-old female nonsmoker with history environmental allergies presents with a chief complaint multiple episodes of nausea, and diarrhea after being exposed to what she thinks was some bad food this afternoon. She ate a burger [employer] which tasted bad. Her symptoms started about 3 hours later. She does admit to some vague abdominal cramping which seems to improve after either vomiting or diarrhea. She denies any blood at any point. She denies any recent travel or use of antibiotics. She has no upper respiratory symptoms such as runny nose, sore throat or cough. She has had no fever at any point. Related Data Home Medications Medication Instructions Recorded Confirmed albuterol sulfate [ProAir HFA] 1 puff INHALATION Q4H PRN 08/07/19 08/07/19 cetirizine 10 mg PO DAILY 08/07/19 08/07/19 cholecalciferol (vitamin D3) 1,000 unit PO DAILY 08/07/19 08/07/19 ibuprofen 800 mg PO Q6H PRN 08/07/19 08/07/19 montelukast [Singulair] 10 mg PO DAILY 08/07/19 08/07/19 Previous Rx's Medication Instructions Recorded omeprazole 40 mg PO HS #30 cap 08/30/17 clonazepam 0 mg PO BIDP PRN #30 tab 11/01/17 meloxicam [Mobic] 15 mg PO [facility] #14 tab 01/03/18 doxycycline hyclate 100 mg PO BID #14 tab 10/18/19 oseltamivir [Tamiflu] 75 mg PO BID #10 cap 10/18/19 ondansetron 4 mg PO TID-QID PRN #10 tab 01/17/20 Allergies Allergy/AdvReac Type Severity Reaction Status Date / Time ciprofloxacin Allergy Mild GI UPSET Verified 10/18/19 22:47 codeine AdvReac Unknown STOMACH Verified 10/18/19 22:47 Review of Systems Constitutional Constitutional: Denies chills, Denies fatigue, Denies fever(s), Denies frequent falls, Denies lethargy and Denies weakness Eyes Eyes: Denies change in vision, Denies eye discharge, Denies irritation and Denies loss of vision ENT Ears, Nose, Mouth, and Throat: Denies change in voice, Denies dizziness, Denies neck pain, Denies sore throat and Denies throat swelling Cardiovascular Cardiovascular: Denies chest pain, Denies irregular heart rhythm, Denies lightheadedness, Denies palpitations, Denies dyspnea, Denies dyspnea on exertion and Denies orthopnea Respiratory Respiratory: Denies cough, Denies dyspnea, Denies dyspnea on exertion and Denies wheezing Gastrointestinal Gastrointestinal: Reports abdominal pain, Denies change in bowel habits, Reports diarrhea, Reports nausea and Reports vomiting Genitourinary Genitourinary: Denies hematuria, Denies flank pain, Denies urinary incontinence and Denies urinary urgency Musculoskeletal Musculoskeletal: Denies back pain, Denies muscle weakness, Denies neck pain, Denies numbness and Denies tingling Integumentary/Breasts Skin/Breast: Denies pruritus, Denies erythema, Denies rash and Denies wounds Neurologic Neurologic: Denies behavioral changes, Denies confusion, Denies dizziness, Denies frequent falls, Denies loss of vision, Denies numbness, Denies tingling and Denies weakness Psychiatric Psychiatric: Denies anxiety, Denies behavioral changes, Denies confusion, Denies depression, Denies homicidal ideation and Denies suicidal ideation Endocrine Endocrine: Denies fatigue, Denies flushing and Denies palpitations Hematologic/Lymphatic Hematologic/Lymphatic: Denies easy bruising Allergic/Immunologic Allergic/Immunologic: Denies urticaria, Denies throat swelling and Denies wheezing Patient History Social History marital status: Smoking Status: Never smoker alcohol intake: current Smoking Status: Never smoker alcohol intake frequency: holidays/special occasions only Substance Use Type: does not use Exam Narrative Exam Narrative: GENERAL: [44] year old patient appears stated age. Well-nourished, well-developed patient, in mild distress. HEAD: Atraumatic. Normocephalic. EYES: Pupils equal round and reactive. Extraocular motions intact. No scleral icterus. No injection or drainage. ENT: Nose without bleeding, purulent drainage. Throat without erythema, tonsillar hypertrophy or exudate. Airway patent. NECK: Trachea midline. Non tender CARDIOVASCULAR: Regular rate and rhythm without murmurs, gallops, or rubs. RESPIRATORY: Clear to auscultation. Breath sounds equal bilaterally. No wheezes, rales, or rhonchi. GASTROINTESTINAL: Abdomen soft, non-tender, nondistended. EXTREMITIES: No edema or joint tenderness. BACK: Nontender without deformity or crepitance. No flank tenderness. NEURO: AOx3. SKIN: No rash or erythema of visible areas Initial Vital Signs Initial Vital Signs: Vital Signs Temperature 97.6 F 01/17/20 01:13 Pulse Rate 109 H 01/17/20 01:13 Respiratory Rate 20 01/17/20 01:13 Blood Pressure 138/69 01/17/20 01:13 Pulse Oximetry 98 01/17/20 01:13 Course Orders Ordered: ED Orders 01/17/20 01:15 Complete Blood Count AUTO DIFF Stat Comprehensive Metabolic Panel Stat Discontinued Medications Sodium Chloride (Normal Saline 0.9%) 1,000 mls @ 1,000 mls/hr IV BOLUS ONE Stop: 01/17/20 02:14 Last Admin: 01/17/20 01:25 Dose: 1,000 mls/hr Documented by: RAULITO Ondansetron HCl (Zofran) 4 mg IV NOW ONE Stop: 01/17/20 01:16 Last Admin: 01/17/20 01:25 Dose: 4 mg Documented by: RAULITO Pantoprazole Sodium (Protonix) 40 mg IV NOW ONE Stop: 01/17/20 01:16 Last Admin: 01/17/20 01:25 Dose: 40 mg Documented by: RAULITO Vital Signs Vital signs: Vital Signs - 8 hr 01/17/20 01:13 01/17/20 02:25 Temperature 97.6 F Pulse Rate 109 H 96 H Respiratory Rate 20 18 Blood Pressure 138/69 Blood Pressure [Left Arm] 138/69 Pulse Oximetry 98 98 MDM - Nausea/Vomiting/Diarrhea Lab Data Result diagrams: 01/17/20 01:15 01/17/20 01:15 Labs: Lab Results 01/17/20 01/17/20 Range/Units 01:15 01:15 WBC 12.2 H (4.5-11.0) X10^3/uL RBC 5.02 (4.0-5.2) X10^6/uL Hgb 12.2 (12.0-16.0) g/dL Hct 38.0 (36-46) % MCV 75.8 L (80-100) fL MCH 24.3 L (26-34) PG MCHC 32.0 (30-36) % RDW 14.6 (11.6-14.8) % Plt Count 381 (150-400) X10^3/uL Neut % (Auto) 89.2 H (50-75) % Lymph % (Auto) 6.3 L (25-40) % [place] % (Auto) 3.4 (3-14) % Eos % (Auto) 0.5 L (2-4) % Baso % (Auto) 0.6 (0-2) % Neut # (Auto) 07601 H (3198-9099) /uL Lymph # (Auto) 800 L (3480-7671) /uL [place] # (Auto) 400 (0-900) /uL Eos # (Auto) 100 (0-450) /uL Baso # (Auto) 100 (0-100) /uL Sodium 137 (137-145) mmol/L Potassium 3.6 (3.4-5.1) mmol/L Chloride 104 (98-107) mmol/L Carbon Dioxide 27 (22-32) mmol/L BUN 9 (7-17) mg/dL Creatinine 0.77 (0.52-1.04) mg/dL Estimated GFR > 60.0 (>60) mL/min BUN/Creatinine Ratio 11.7 (6-22) Glucose 144 H (70-100) mg/dL Calcium 9.1 (8.4-10.2) mg/dL Total Bilirubin 0.7 (0.2-1.3) mg/dL AST 36 (14-36) IU/L ALT 18 (<35) IU/L Alkaline Phosphatase 125 (38-126) U/L Total Protein 8.7 H (6.3-8.2) g/dL Albumin 4.4 (3.5-5.0) g/dL Globulin 4.3 H (1.7-4.1) g/dL Albumin/Globulin Ratio 1.0 (1.0-2.8) MDM Narrative Medical decision making narrative: Patient feeling much better after the above-stated therapies. Her exam, story and labs are all very reassuring. Her vital signs at have improved after a L of fluids. Patient has been given return precautions and has had questions answered to her apparent satisfaction. Discharge Plan Departure Patient Disposition: Home Clinical Impression: Vomiting and diarrhea Instructions: Diarrhea, DI for Dehydration -- Adult, DI for Nausea -- Adult Activity Restrictions/Additional Instructions: 1. Drink plenty of fluids with frequent small sips. 2. For the next 24 hours a clear liquid diet is advised. After that please employ a brat diet which would include bananas, rice, apples, toast. 3. Please take medications as directed. Prescription sent to [facility] at your request 4. Please follow-up with your doctor in the next 1-2 days. Call the office for an appointment. 5. Please return to the emergency Department for any worsening or persistent symptoms, such as increasing pain or fever. Prescriptions: New ondansetron 4 mg tablet,disintegrating 4 mg PO TID-QID PRN (Reason: nausea and vomiting) Qty: 10 RF: 0 No Action omeprazole 40 MG capsule,delayed release(DR/EC) 40 mg PO HS Qty: 30 RF: 3 clonazepam 0.5 MG tablet 0 mg PO BIDP PRNQty: 30 RF: 2 meloxicam [Mobic] 15 MG tablet 15 mg PO [facility] Qty: 14 RF: 0 ibuprofen 800 mg tablet 800 mg PO Q6H PRN (Reason: pain) RF: 0 albuterol sulfate [ProAir HFA] 90 mcg/actuation HFA aerosol inhaler 1 puff INHALATION Q4H PRN (Reason: asthma) RF: 0 cetirizine 10 MG tablet 10 mg PO DAILY RF: 0 montelukast [Singulair] 10 MG tablet 10 mg PO DAILY RF: 0 cholecalciferol (vitamin D3) 1,000 unit (25 mcg) tablet 1,000 unit PO DAILY RF: 0 oseltamivir [Tamiflu] 75 mg capsule 75 mg PO BID Qty: 10 RF: 0 doxycycline hyclate 100 mg tablet 100 mg PO BID Qty: 14 RF: 0
[2020-01-17] MEDS: SODIUM CHLORIDE 0.9% 1,000 ML 1000 ML IV (01:25)
[2020-01-17] MEDS: ONDANSETRON 4 MG/2 ML INJ IV (01:25)
[2020-01-17] MEDS: PANTOPRAZOLE 40 MG VIAL IV (01:25)
[2020-01-17 01:27] LABS: Add Manual Diff / Slide Review NO; Basophils Absolute Auto 100 /uL (0-100); Basophils Percent Auto 0.6 % (0-2); Eosinophils Absolute Auto 100 /uL (0-450); Eosinophils Percent Auto 0.5 % (2-4); Hemoglobin 12.2 g/dL (12.0-16.0); Lymphocytes Absolute Auto 800 /uL (1100-4500); Lymphocytes Percent Auto 6.3 % (25-40); Mean Corpuscular Hemoglobin 24.3 PG (26-34); Mean Corpuscular Volume 75.8 fL (80-100); Monocytes Absolute Auto 400 /uL (0-900); Monocytes Percent Auto 3.4 % (3-14); Neutrophils Absolute Auto 10900 /uL (1500-7000); Neutrophils Percent Auto 89.2 % (50-75); Platelet Count 381 X10^3/uL (150-400); Red Blood Cell Count 5.02 X10^6/uL (4.0-5.2); Red Cell Distribution Width 14.6 % (11.6-14.8); White Blood Cell Count 12.2 X10^3/uL (4.5-11.0)
[2020-01-17 01:32] LABS: Alanine Aminotransferase 18 IU/L (<35); Albumin 4.4 g/dL (3.5-5.0); Alkaline Phosphatase 125 U/L (38-126); Aspartate Aminotransferase 36 IU/L (14-36); BUN Creatinine Ratio 11.7 (6-22); Bilirubin Total 0.7 mg/dL (0.2-1.3); Blood Urea Nitrogen 9 mg/dL (7-17); Calcium 9.1 mg/dL (8.4-10.2); Carbon Dioxide 27 mmol/L (22-32); Chloride 104 mmol/L (98-107); Estimated Glomerular Filt Rate > 60.0 mL/min (>60); Globulin 4.3 g/dL (1.7-4.1); Glucose 144 mg/dL (70-100); HEMOLYSIS < 15 (0-50); Potassium 3.6 mmol/L (3.4-5.1); Sodium 137 mmol/L (137-145); Total Protein 8.7 g/dL (6.3-8.2)
[2020-01-17 02:25] VITALS: BP 138/69; PULSE 96; RESP 18; O2SAT 98
[2020-01-17] MEDS: ONDANSETRON 4 MG ODT PREPACK 1 BOTTLE MISC (02:43)
== END 2020-01-17 02:45 | disposition home or self-care (01) ==
PROVIDERS: Emergency Provider Emergency Medicine
DX: R11.2 Nausea with vomiting, unspecified (principal); R19.7 Diarrhea, unspecified; R10.9 Unspecified abdominal pain
CPT/HCPCS: 80053; 85025; 96361; 96374; 96375; 99283; 99284; C9113; J2405

== ENCOUNTER 2020-02-13 19:21 | Emergency (ER) | payer OTHER, SELFPAY ==
[2020-02-13 19:27] VITALS: BP 171/74; PULSE 94; RESP 20; TEMP 36.6; O2SAT 100
--- NOTE | 2020-02-13 20:05 | ED.ARRPALP ---
HPI - Arrhythmia/Palpitations General Chief Complaint: Arrhythmia/Palpitations Stated Complaint: HAERT RAISING Time Seen by Provider: 02/13/20 19:49 Source: patient Mode of arrival: Ambulatory Limitations: no limitations History of Present Illness HPI narrative: Patient is a 45-year-old female with known seasonal allergies. States that her allergies have been ?acting up? for the past couple days. [place] and sore throat. She was told that it was allergies and that she needed to continue with her Flonase. She stated that the symptoms were getting a little worse despite using the Flonase today. She states she was concerned about coronavirus. Came in the emergency department for evaluation. Of than her normal allergy medications has not tried anything for symptoms prior to arrival. Related Data Home Medications Medication Instructions Recorded Confirmed albuterol sulfate [ProAir HFA] 1 puff INHALATION Q4H PRN 08/07/19 08/07/19 cetirizine 10 mg PO DAILY 08/07/19 08/07/19 cholecalciferol (vitamin D3) 1,000 unit PO DAILY 08/07/19 08/07/19 ibuprofen 800 mg PO Q6H PRN 08/07/19 08/07/19 montelukast [Singulair] 10 mg PO DAILY 08/07/19 08/07/19 Previous Rx's Medication Instructions Recorded omeprazole 40 mg PO HS #30 cap 08/30/17 clonazepam 0 mg PO BIDP PRN #30 tab 11/01/17 meloxicam [Mobic] 15 mg PO [facility] #14 tab 01/03/18 doxycycline hyclate 100 mg PO BID #14 tab 10/18/19 oseltamivir [Tamiflu] 75 mg PO BID #10 cap 10/18/19 ondansetron 4 mg PO TID-QID PRN #10 tab 01/17/20 Allergies Allergy/AdvReac Type Severity Reaction Status Date / Time ciprofloxacin Allergy Mild GI UPSET Verified 10/18/19 22:47 codeine AdvReac Unknown STOMACH Verified 10/18/19 22:47 Review of Systems Constitutional Constitutional: Denies fatigue and Denies fever(s) ENT Ears, Nose, Mouth, and Throat: Reports otalgia, Denies facial pain, Denies nasal congestion, Denies nasal discharge, Reports sinus pressure and Reports sore throat Cardiovascular Cardiovascular: Denies chest pain and Denies dyspnea Respiratory Respiratory: Denies cough and Denies dyspnea Gastrointestinal Gastrointestinal: Denies abdominal pain Integumentary/Breasts Skin/Breast: Denies lesions and Denies rash Neurologic Neurologic: Denies behavioral changes Psychiatric Psychiatric: Denies behavioral changes Endocrine Endocrine: Denies fatigue Hematologic/Lymphatic Hematologic/Lymphatic: Denies easy bleeding and Denies easy bruising Patient History Medical History (Updated 02/14/20 @ 01:09 by Blair Montilla DO) Anxiety (Acute) Seasonal allergies (Acute) Social History marital status: Smoking Status: Never smoker alcohol intake: current Smoking Status: Never smoker alcohol intake frequency: holidays/special occasions only Substance Use Type: marijuana Exam Initial Vital Signs Initial Vital Signs: Vital Signs Temperature 97.9 F 02/13/20 19:27 Pulse Rate 94 H 02/13/20 19:27 Respiratory Rate 20 02/13/20 19:27 Blood Pressure 171/74 H 02/13/20 19:27 Pulse Oximetry 100 02/13/20 19:27 Const General: cooperative, comfortable and well developed HENNM Head: normal to inspection and normocephalic Ears: TM normal on the right, EAC's normal and TM abnormal bulging on the left Resp Effort & Inspection: normal respiratory effort Auscultation: clear to auscultation bilaterally Cardio Rate: regular rate Rhythm: regular rhythm Skin Lesions: no lesions Rashes: no rashes Neuro General: alert and awake Cognition: normal cognition Speech: speech normal Extrem General: normal to inspection and capillary refill normal Course Vital Signs Vital signs: Vital Signs - 8 hr 02/13/20 19:27 02/13/20 20:30 Temperature 97.9 F Pulse Rate 94 H 89 Respiratory Rate 20 18 Blood Pressure 171/74 H 162/73 H Pulse Oximetry 100 98 MDM - Arrhythmia/Palpitations MDM Narrative Medical decision making narrative: History and physical exam today is consistent with seasonal allergies. We did discuss that she could do other nasal sprays such as saline and potentially Afrin if needed. Informed her that I am not surprised that her symptoms are not completely improvement furnace 1 day of her allergy medications. Field and hold on further workup for now. She stated that the heart palpitations she was having his per her initial chief complaint was because of anxiety. She admits to having quite a bit of anxiety. She is not having chest pain. I feel we can hold on further workup this. She was given return precautions and follow-up instructions. She expressed understanding and agreement. Discharge Plan Departure Patient Disposition: Home Clinical Impression: Seasonal allergies Discharge Date/Time: 02/13/20 20:30 Instructions: Allergies (Alternative Therapy) Activity Restrictions/Additional Instructions: Take all your medications as directed. You can also start taking Afrin as directed. You can only do this for 3 days and then you have to stop to avoid other complications. Continue with your other allergy medicines. Return to the emergency department for any new or worsening symptoms Prescriptions: No Action omeprazole 40 MG capsule,delayed release(DR/EC) 40 mg PO HS Qty: 30 RF: 3 clonazepam 0.5 MG tablet 0 mg PO BIDP PRNQty: 30 RF: 2 meloxicam [Mobic] 15 MG tablet 15 mg PO [facility] Qty: 14 RF: 0 ondansetron 4 mg tablet,disintegrating 4 mg PO TID-QID PRN (Reason: nausea and vomiting) Qty: 10 RF: 0 ibuprofen 800 mg tablet 800 mg PO Q6H PRN (Reason: pain) RF: 0 albuterol sulfate [ProAir HFA] 90 mcg/actuation HFA aerosol inhaler 1 puff INHALATION Q4H PRN (Reason: asthma) RF: 0 cetirizine 10 MG tablet 10 mg PO DAILY RF: 0 montelukast [Singulair] 10 MG tablet 10 mg PO DAILY RF: 0 cholecalciferol (vitamin D3) 1,000 unit (25 mcg) tablet 1,000 unit PO DAILY RF: 0 oseltamivir [Tamiflu] 75 mg capsule 75 mg PO BID Qty: 10 RF: 0 doxycycline hyclate 100 mg tablet 100 mg PO BID Qty: 14 RF: 0
[2020-02-13 20:30] VITALS: BP 162/73; PULSE 89; RESP 18; O2SAT 98
== END 2020-02-13 20:30 | disposition home or self-care (01) ==
PROVIDERS: Emergency Provider Emergency Medicine
DX: J30.2 Other seasonal allergic rhinitis (principal)
CPT/HCPCS: 99281

== ENCOUNTER 2020-07-17 16:53 | Emergency (ER) | payer OTHER, SELFPAY ==
--- NOTE | 2020-07-17 17:21 | DI.RAD.S_ITS ---
PROCEDURE: XR RIBS LT MIN 3V W CXR1V INDICATIONS: fell on anterior chest last night, pain in left ant chest TECHNIQUE: 3 views of the left ribs were acquired, along with a single view chest. COMPARISON: [facility], CR, XR CHEST 1V, 09/04/2019, 23:01. [facility], CR, XR CHEST 1V, 10/18/2019, 22:50. [facility], CR, XR KNEE LT 3V, 07/17/2020, 17:15. FINDINGS: Surgical changes and devices: Cholecystectomy clips are faintly seen. Bones and chest wall: No fractures or dislocations. No suspicious bony lesions. Overlying soft tissues appear unremarkable. Lungs and pleura: An incomplete inspiratory result is noted, causing a crowded appearance to the lung markings. No focal infiltrates are seen. No pneumothorax or significant pleural effusions are seen. Mediastinum: Mediastinal contours appear normal. Heart size is normal. IMPRESSION: No displaced rib fracture or pneumothorax is seen. Low lung volumes. Dictated by: Tone Gregg M.D. on 07/17/2020 at 16:51 Approved by: Tone Gregg M.D. on 07/17/2020 at 16:52
--- NOTE | 2020-07-17 17:21 | DI.RAD.S_ITS ---
PROCEDURE: XR KNEE LT 3V INDICATIONS: knee pain, fell on bilateral knee, L>R TECHNIQUE: 3 views of the left knee were acquired. COMPARISON: [facility], CR, XR KNEE ARTHRITIC SERIES BI, 07/26/2016, 16:35. [facility], CR, KNEE MIN 4VW (LT), 01/17/2012, 15:08. [facility], CR, KNEE MIN 4VW (LT), 05/20/2010, 15:39. [facility], CR, XR RIBS LT MIN 3V W CXR1V, 07/17/2020, 17:20. [facility], CR, KNEE 3V RIGHT, 04/08/2010, 11:51. FINDINGS: Bones: No fractures or dislocations. No suspicious bony lesions. The femorotibial joint spaces are well preserved. On the sunrise view, there is mild patellofemoral joint space narrowing seen. Osteophyte formation can be seen along the margins of the patella. Soft tissues: No joint effusion. No suspicious soft tissue calcifications. IMPRESSION: No acute fracture can be seen. No patella fracture is seen. Mild focal patellofemoral joint degenerative change. Dictated by: Tone Gregg M.D. on 07/17/2020 at 16:48 Approved by: Tone Gregg M.D. on 07/17/2020 at 16:51
--- NOTE | 2020-07-17 17:23 | ED.FALL ---
HPI - Fall <Delio BERTHA Humphreys - Last Filed: 07/17/20 22:47> General Chief Complaint: Fall Stated Complaint: fall last night, hurt her left shoulder Time Seen by Provider: 07/17/20 17:10 Source: patient Mode of arrival: Ambulatory Limitations: no limitations History of Present Illness HPI Narrative: This is a 45 year female, nonsmoker, who has noncontributing history presents to ED with chief complain of left mid anterior chest wall pain, left-sided neck pain, bilateral knee pain worse in left-sided after a mechanical fall last night. Patient reports she turned too quickly and stepped on a slippery paper on a vinyl floor and fell on left side chest and bilateral knee after she was unable to break a fall on extended bilateral hand. Patient denies hitting her head or injuring other areas. Patient denies losing consciousness. Patient felt and heard something popped from anterior chest and reports pain increases with deep breathing. Patient reports left knee pain with weight-bearing and flexion of affected leg. Left-sided neck pain increases with rotation of her neck motion and this radiates pain down to her left shoulder and arm. Reports pain as 9/10 and constant in sharp in character. Patient reports intact sensation and denies weakness to all extremities. Patient has been taking 2 tablets of extra-strength Tylenol without much improvement. Last dose was taken at 2:00 p.m.. Related Data Home Medications Medication Instructions Recorded Confirmed albuterol sulfate [ProAir HFA] 1 puff INHALATION Q4H PRN 08/07/19 08/07/19 cetirizine 10 mg PO DAILY 08/07/19 08/07/19 cholecalciferol (vitamin D3) 1,000 unit PO DAILY 08/07/19 08/07/19 montelukast [Singulair] 10 mg PO DAILY 08/07/19 08/07/19 Previous Rx's Medication Instructions Recorded omeprazole 40 mg PO HS #30 cap 08/30/17 clonazepam 0 mg PO BIDP PRN #30 tab 11/01/17 oseltamivir [Tamiflu] 75 mg PO BID #10 cap 10/18/19 ondansetron 4 mg PO TID-QID PRN #10 tab 01/17/20 cyclobenzaprine 10 mg PO BID PRN #10 tab 09/26/20 lidocaine 1 patch TOP Q24H PRN #30 each 07/17/20 Allergies Allergy/AdvReac Type Severity Reaction Status Date / Time ciprofloxacin Allergy Mild GI UPSET Verified 10/18/19 22:47 codeine AdvReac Unknown STOMACH Verified 10/18/19 22:47 Review of Systems <BERTHA Licona - Last Filed: 07/17/20 22:47> Review of Systems Narrative: General: Denies fever, chills, fatigue, malaise, sweats. HEENT: Denies sinus pain, ear pain, sore throat, difficulty swallowing, dizziness. Respiratory: Denies dyspnea, cough, wheezing, hemoptysis, sputum. Cardiovascular: See HPI Gastrointestinal: Denies nausea, vomiting, abdominal pain, diarrhea, constipation, melena. : Denies dysuria, frequency, incontinence, hematuria, urinary retention. Musculoskeletal: See HPI Skin: Denies rash, skin lesions, or other. Neurologic: Denies weakness, headache, numbness, change in speech, confusion, seizures, incoordination. Psychiatric: No concerning psychosocial issues. 12-point review of systems is negative except for those stated above. Patient History <BERTHA Licona - Last Filed: 07/17/20 22:47> Medical History Anxiety (Acute) Seasonal allergies (Acute) Surgical History History of bilateral tubal ligation (Acute) History of cholecystectomy (Acute) Social History marital status: Smoking Status: Never smoker alcohol intake: current Smoking Status: Never smoker alcohol intake frequency: holidays/special occasions only Substance Use Type: marijuana Exam <BERTHA Licona - Last Filed: 07/17/20 22:47> Narrative Exam Narrative: General appearance: well developed, well nourished, in no acute distress. Head: normocephalic, atraumatic, no scalp lesions, non-tender. ENT: Hearing grossly intact. Airway patent. Neck/Thyroid: neck supple, full range of motion, left side neck pain to palpate. No visible masses or meningeal signs. No JVD without lymphadenopathy. Skin: Superficial abrasions to bilateral knee. no suspicious rashes, lesions over other visible areas. Warm and dry and appropriate color for ethnicity. Heart: no clubbing, no cyanosis, no edema. Lungs: Breathing even and unlabored. No stridor. No accessory muscles used. Able to speak in full sentences. Chest: normal shape and expansion. Abdomen: non-obese, non-distended. Neurologic: alert and oriented. Cognitive exam, [employer] and PNS grossly intact on informal exam. Psych: good eye contact, normal affect. Extrem Right upper extremity: normal to inspection, full ROM, shoulder/upper arm Details: no tenderness and no swelling and hand Details: normal to inspection, normal capillary refill, neuromotor exam normal and vascular exam Details: radial pulse present; no tenderness Left upper extremity: normal to inspection, full ROM, shoulder/upper arm Details: inspection abnormal, tenderness and abnormal ROM Details: pain with active ROM and pain with passive ROM; no swelling, elbow/forearm Details: no tenderness and no swelling, wrist Details: normal to inspection and normal ROM; no tenderness and no swelling and hand Details: normal to inspection, normal capillary refill, neurosensory exam normal, tendon exam normal, vascular exam Details: radial pulse present, normal ROM of fingers and no swelling Right lower extremity: normal to inspection, full ROM, normal capillary refill, no joint enlargement (Knee), hip/thigh Details: normal ROM; no tenderness and no swelling, knee Details: normal ROM, knee ligament exam normal and abrasion (Patella); no swelling, no ecchymosis, no deformity and no unusual warmth and foot Details: toes with normal ROM, vascular exam Details: dorsalis pedis pulse present and motor-sensory exam Details: light-touch normal; no tenderness Left lower extremity: hip/thigh Details: normal ROM; no tenderness and no swelling, knee Details: abnormal to inspection, tenderness Location: of the patella, abnormal ROM Details: pain with active ROM and pain with passive ROM, knee ligament exam normal and abrasion (Patella); no swelling, no ecchymosis, no crepitus and no deformity and foot Details: toes with normal ROM, no edema, vascular exam Details: dorsalis pedis pulse present, tendon exam Details: active flexion normal and active extension normal and motor-sensory exam Details: light-touch normal; no tenderness, no unusual warmth and no crepitus Scores <Delio BERTHA Humphreys - Last Filed: 07/17/20 22:47> GCS [place] coma scale eye opening: Spontaneous [place] coma scale verbal response: [place] coma scale motor response: [place] commands [place] coma scale total score: 15 Course <Kern ValleyBERTHA Vidales - Last Filed: 07/17/20 22:47> Orders Ordered: Discontinued Medications Cyclobenzaprine HCl (Flexeril) 10 mg PO NOW ONE Stop: 07/17/20 17:22 Last Admin: 07/17/20 18:00 Dose: 10 mg Documented by: ALICE Ibuprofen (Advil) 400 mg PO NOW ONE Stop: 07/17/20 17:22 Last Admin: 07/17/20 18:00 Dose: 400 mg Documented by: ALICE Lidocaine (Lidoderm) 1 each TOP NOW ONE Stop: 07/17/20 17:22 Last Admin: 07/17/20 18:00 Dose: 1 each Documented by: ALICE Lidocaine (Lidoderm (Remove Patch)) 1 each TOP BEDTIME ROULA <Iker Mo DO - Last Filed: 07/23/20 01:11> Orders Ordered: Discontinued Medications Cyclobenzaprine HCl (Flexeril) 10 mg PO NOW ONE Stop: 07/17/20 17:22 Last Admin: 07/17/20 18:00 Dose: 10 mg Documented by: ALICE Ibuprofen (Advil) 400 mg PO NOW ONE Stop: 07/17/20 17:22 Last Admin: 07/17/20 18:00 Dose: 400 mg Documented by: ALICE Lidocaine (Lidoderm) 1 each TOP NOW ONE Stop: 07/17/20 17:22 Last Admin: 07/17/20 18:00 Dose: 1 each Documented by: ALICE Lidocaine (Lidoderm (Remove Patch)) 1 each TOP BEDTIME ROULA MDM - Fall <[place]ern ValleyBERTHA Vidales - Last Filed: 07/17/20 22:47> Differential Diagnosis Differential diagnosis: Likely other (Neck strain, rib fracture, rib contusion, knee contusion, fracture to knee,) Medical Records Attestation: I reviewed the patient's medical records. Imaging Data XR-Ribs & chest: Radiologist's Impression: [address] [place] [address] XRay Report Signed Patient: Mikki Perez JMR#: [id number] : 1975Acct:[id number] Age/Sex: 45 / FDate of Service: 07/17/20 Loc: ED Accession Number: [id number] Procedure: XR ribs LT min 3V w CXR1V Ordering Provider: Delio Humphreys PROCEDURE: XR RIBS LT MIN 3V W CXR1V INDICATIONS: fell on anterior chest last night, pain in left ant chest TECHNIQUE: 3 views of the left ribs were acquired, along with a single view chest. COMPARISON: [facility], , XR CHEST 1V, 09/04/2019, 23:01. [facility], CR, XR CHEST 1V, 10/18/2019, 22:50. [facility], , XR KNEE LT 3V, 07/17/2020, 17:15. FINDINGS: Surgical changes and devices: Cholecystectomy clips are faintly seen. Bones and chest wall: No fractures or dislocations. No suspicious bony lesions. Overlying soft tissues appear unremarkable. Lungs and pleura: An incomplete inspiratory result is noted, causing a crowded appearance to the lung markings. No focal infiltrates are seen. No pneumothorax or significant pleural effusions are seen. Mediastinum: Mediastinal contours appear normal. Heart size is normal. IMPRESSION: No displaced rib fracture or pneumothorax is seen. Low lung volumes. Dictated by: Tone Gregg M.D. on 07/17/2020 at 16:51 Approved by: Tone Gregg M.D. on 07/17/2020 at 16:52 XR-Knee LT: Radiologist's Impression: [address] [address] XRay Report Signed Patient: Mikki Perez JMR#: [id number] : 1975Acct:[id number] Age/Sex: 45 / FDate of Service: 07/17/20 Loc: ED Accession Number: [id number] Procedure: XR knee LT 3V Ordering Provider: Delio Humphreys PROCEDURE: XR KNEE LT 3V INDICATIONS: knee pain, fell on bilateral knee, L>R TECHNIQUE: 3 views of the left knee were acquired. COMPARISON: [facility], CR, XR KNEE ARTHRITIC SERIES BI, 07/26/2016, 16:35. [facility], CR, KNEE MIN 4VW (LT), 01/17/2012, 15:08. [facility], CR, KNEE MIN 4VW (LT), 05/20/2010, 15:39. [facility], CR, XR RIBS LT MIN 3V W CXR1V, 07/17/2020, 17:20. [facility], CR, KNEE 3V RIGHT, 04/08/2010, 11:51. FINDINGS: Bones: No fractures or dislocations. No suspicious bony lesions. The femorotibial joint spaces are well preserved. On the sunrise view, there is mild patellofemoral joint space narrowing seen. Osteophyte formation can be seen along the margins of the patella. Soft tissues: No joint effusion. No suspicious soft tissue calcifications. IMPRESSION: No acute fracture can be seen. No patella fracture is seen. Mild focal patellofemoral joint degenerative change. Dictated by: Tone Gregg M.D. on 07/17/2020 at 16:48 Approved by: Tone Gregg M.D. on 07/17/2020 at 16:51 MDM Narrative Medical decision making narrative: This is a 45 year female who had and mechanical fall yesterday after stepping on a slippery paper on a vinyl floor and landed on her anterior chest and bilateral knees. Patient reports pain in her left side neck, chest, and left knee. Patient is able to bear weight but with increased pain. Upper bilateral and lower extremities with equal strength, no deformities, and intact sensation and pulses distally. Chest x-ray does not show fractures, pneumothorax, or infiltrate. Lung sounds are clear to auscultate in all lobes. Left knee x-ray without acute findings. Applied Nba wrap on left knee. Patient was medicated with Flexeril, lidocaine patch, and Motrin for pain management. Patient advised to continue to use [id number] Tylenol or Motrin as needed for discomfort and discharged to with prescriptions for lidocaine patch and Flexeril with precautions. Return precautions were discussed with patient and she verbalized understanding in agreement and agrees with treatment plan. Discharge Plan Departure Patient Disposition: Home Clinical Impression: Fall Qualifiers: Encounter type: initial encounter Qualified Code(s): W19.XXXA - Unspecified fall, initial encounter Contusion, chest wall Qualifiers: Encounter type: initial encounter Laterality: left Qualified Code(s): S20.212A - Contusion of left front wall of thorax, initial encounter Knee pain Qualifiers: Chronicity: acute Laterality: left Qualified Code(s): M25.562 - Pain in left knee Neck strain Qualifiers: Encounter type: initial encounter Qualified Code(s): S16.1XXA - Strain of muscle, fascia and tendon at neck level, initial encounter Discharge Date/Time: 07/17/20 19:18 Activity Restrictions/Additional Instructions: You have been diagnosed with [contusion to anterior chest, bilateral knees, neck strain from a fall.]. What to do: *Take your medications as directed. Please take [id number] Tylenol and or Motrin as needed for discomfort. Tylenol 650-1000 mg up to 3 to 4 times a day as needed for pain. Ibuprofen 400-600 mg up to 3 to 4 times a day as needed for pain and inflammation. Lidocaine patch stays on for 12 hours on affected site and off for 12 hours. You can continue to use on the neck. If this is too expensive to pickle solution maker, you can use [id number]-zrk-[id number] lidocaine 4% patch. Flexeril is muscle relaxant you can take as needed about twice a day. He can cause drowsiness so please do not drive, drink alcohol or operate heavy equipments. These medication have been transmitted to [facility] in [place]. *Follow up with your primary care provider in 2-3 days, call for an appointment. Let them know you were seen in the ED and that we asked you to be seen in follow up. *Return to ED if you have any new, worsening, or concerning symptoms, such as [worsening pain, weakness/numbness/tingling to extremities, chest pain, breathing difficulty, unable to tolerate fluids, signs and symptoms for skin infection or any acute concerns]. Prescriptions: New lidocaine 5 % adhesive patch,medicated 1 patch TOP Q24H PRN (Reason: pain) Qty: 30 RF: 0 cyclobenzaprine 10 mg tablet 10 mg PO BID PRN (Reason: muscle spasm) Qty: 10 RF: 0 Discontinued doxycycline hyclate 100 mg tablet 100 mg PO BID Qty: 14 RF: 0 No Action omeprazole 40 MG capsule,delayed release(DR/EC) 40 mg PO HS Qty: 30 RF: 3 clonazepam 0.5 MG tablet 0 mg PO BIDP PRNQty: 30 RF: 2 ondansetron 4 mg tablet,disintegrating 4 mg PO TID-QID PRN (Reason: nausea and vomiting) Qty: 10 RF: 0 albuterol sulfate [ProAir HFA] 90 mcg/actuation HFA aerosol inhaler 1 puff INHALATION Q4H PRN (Reason: asthma) RF: 0 cetirizine 10 MG tablet 10 mg PO DAILY RF: 0 montelukast [Singulair] 10 MG tablet 10 mg PO DAILY RF: 0 cholecalciferol (vitamin D3) 1,000 unit (25 mcg) tablet 1,000 unit PO DAILY RF: 0 oseltamivir [Tamiflu] 75 mg capsule 75 mg PO BID Qty: 10 RF: 0 <Iker Mo DO - Last Filed: 07/23/20 01:11> Cosign ED Attending Cosignature Attestation: I was immediately available in the department for consultation. This documentation has been reviewed and I agree with assessment and plan. Supervised by Iker Mo DO
[2020-07-17] MEDS: IBUPROFEN 400 MG TABLET PO (18:00)
[2020-07-17] MEDS: LIDOCAINE PATCH 1 EACH ADH..PATCH TOP (18:00)
[2020-07-17] MEDS: CYCLOBENZAPRINE 10 MG TABLET PO (18:00)
== END 2020-07-17 19:18 | disposition home or self-care (01) ==
PROVIDERS: Emergency Provider Nurse Practitioner Family
DX: S20.212A Contusion of left front wall of thorax, initial encounter (principal); S16.1XXA Strain of muscle, fascia and tendon at neck level, initial encounter; M25.562 Pain in left knee; W01.0XXA Fall on same level from slipping, tripping and stumbling without subsequent striking against object, initial encounter
CPT/HCPCS: 71101; 73562; 99284

== ENCOUNTER 2020-10-09 14:40 | Emergency (ER) | payer OTHER, SELFPAY ==
[2020-10-09 14:49] VITALS: BP 172/92; PULSE 97; RESP 16; TEMP 36.8; O2SAT 97; BMI 43.0
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
[2020-10-09] MEDS: KETOROLAC 60 MG/2 ML VIAL 30 MG IM (15:14)
[2020-10-09] MEDS: BACITRACIN OINT 0.9 GM PCKT 1 APPLIC TOP (15:15)
[2020-10-09 15:30] VITALS: BP 157/74; PULSE 88; RESP 16; O2SAT 98
== END 2020-10-09 15:31 | disposition home or self-care (01) ==
PROVIDERS: Emergency Provider Emergency Medicine
DX: T21.11XA Burn of first degree of chest wall, initial encounter (principal); X10.2XXA Contact with fats and cooking oils, initial encounter
CPT/HCPCS: 96372; 99281; 99283; J1885

== ENCOUNTER → 2020-10-14 12:28 | Outpatient (CLI) | payer OTHER, SELFPAY | PROVIDERS: Visit Provider Physician Assistant | DX: N30.00 Acute cystitis without hematuria (principal) | CPT/HCPCS: 87077; 87086; 87186 ==

== ENCOUNTER → 2020-10-27 11:27 | Outpatient (CLI) | payer OTHER, SELFPAY | PROVIDERS: Visit Provider Physician Assistant | DX: N34.3 Urethral syndrome, unspecified (principal) | CPT/HCPCS: 87086 ==

== ENCOUNTER 2020-11-27 18:54 | Emergency (ER) | payer OTHER, SELFPAY ==
--- NOTE | 2020-11-27 19:03 | ED_ITS ---
HPI - Extremity Injury (Lower) General Chief Complaint: Extremity Injury, Lower Stated Complaint: Fall, Hurt Rt Knee Time Seen by Provider: 11/27/20 19:01 Source: patient and family Mode of arrival: Wheelchair Limitations: no limitations History of Present Illness HPI Narrative: 45-year-old female nonsmoker with history of asthma presents with significant other in the chief complaint of an injury to her right knee just prior to arrival. She was walking in her kitchen when she stepped on an object on the floor which caused her to fall awkwardly, injuring her knee. She denies significant pain on the medial joint line of her knee and is unable to weightbear. She denies any head neck or back pain. She denies hip or ankle pain. She denies any numbness, tingling or weakness. She denies any history of the same. She has had no exposure to persons known COVID and denies any fever chills MD complaint: knee injury Onset (ago): minute(s) Injury: Right: knee Type of Injury: unknown Place: home Severity: severe Relieving factors: immobilization and rest Exacerbating factors: weight bearing, movement and palpation Context: fall Associated symptoms: unable to bear weight Other symptoms: none Related Data Home Medications Medication Instructions Recorded Confirmed albuterol sulfate [ProAir HFA] 1 puff INHALATION Q4H PRN 08/07/19 10/27/20 cetirizine 10 mg PO DAILY 08/07/19 10/27/20 cholecalciferol (vitamin D3) 1,000 unit PO DAILY 08/07/19 10/27/20 montelukast [Singulair] 10 mg PO DAILY 08/07/19 10/27/20 Previous Rx's Medication Instructions Recorded omeprazole 40 mg PO HS #30 cap 08/30/17 clonazepam 0 mg PO BIDP PRN #30 tab 11/01/17 oseltamivir [Tamiflu] 75 mg PO BID #10 cap 10/18/19 ondansetron 4 mg PO TID-QID PRN #10 tab 01/17/20 cyclobenzaprine 10 mg PO BID PRN #10 tab 07/17/20 lidocaine 1 patch TOP Q24H PRN #30 each 07/17/20 hydrocodone-acetaminophen [[place]] 1 tab PO Q6H PRN #10 tab 10/09/20 phenazopyridine 100 mg tablet 100 mg PO TID PRN 0 Days #6 tab 10/14/20 hydrocodone-acetaminophen 1 tab PO Q4-6H PRN #20 tab 11/27/20 Allergies Allergy/AdvReac Type Severity Reaction Status Date / Time ciprofloxacin Allergy Mild GI UPSET Verified 11/27/20 19:08 codeine AdvReac Unknown STOMACH Verified 11/27/20 19:08 Review of Systems Constitutional Constitutional: Denies chills, Denies fatigue, Denies fever(s), Denies frequent falls, Denies lethargy and Denies weakness Eyes Eyes: Denies change in vision, Denies eye discharge, Denies irritation and Denies loss of vision ENT Ears, Nose, Mouth, and Throat: Denies change in voice, Denies dizziness, Denies neck pain, Denies sore throat and Denies throat swelling Cardiovascular Cardiovascular: Denies chest pain, Denies irregular heart rhythm, Denies lightheadedness, Denies palpitations, Denies dyspnea, Denies dyspnea on exertion and Denies orthopnea Respiratory Respiratory: Denies cough, Denies dyspnea, Denies dyspnea on exertion and Denies wheezing Gastrointestinal Gastrointestinal: Denies abdominal pain, Denies change in bowel habits, Denies diarrhea, Denies nausea and Denies vomiting Musculoskeletal Musculoskeletal: Reports abnormal gait, Reports arthralgias, Denies neck pain and Denies numbness Integumentary/Breasts Skin/Breast: Denies pruritus, Denies erythema, Denies rash and Denies wounds Neurologic Neurologic: Reports abnormal gait, Denies behavioral changes, Denies confusion, Denies dizziness, Denies frequent falls, Denies loss of vision, Denies numbness and Denies weakness Psychiatric Psychiatric: Denies anxiety, Denies behavioral changes, Denies confusion, Denies depression, Denies homicidal ideation and Denies suicidal ideation Endocrine Endocrine: Denies fatigue, Denies flushing and Denies palpitations Hematologic/Lymphatic Hematologic/Lymphatic: Denies easy bruising Allergic/Immunologic Allergic/Immunologic: Denies urticaria, Denies throat swelling and Denies wheezing Patient History Medical History Anxiety Seasonal allergies UTI (urinary tract infection) Surgical History History of bilateral tubal ligation History of cholecystectomy Social History marital status: Smoking Status: Never smoker alcohol intake: current Smoking Status: Never smoker alcohol intake frequency: holidays/special occasions only Substance Use Type: marijuana Exam Narrative Exam Narrative: GEN: AOx3 and in mild distress EYES: Pupils are equal, round, and reactive to light and accommodation. Extraoccular muscles are intact bilaterally. There is no subconjunctival hemorrhage or exudate. CHEST: Lungs are clear to auscultation bilaterally and free of wheezes, rales, or rhonchi. Heart rate is regular rhythm, there are no murmurs, clicks, rubs, or gallops. There is no chest wall tenderness. ABD: Abdomen is soft and nontender. There is no guarding or rebound. Bowel sounds are normal in all 4 quadrants. There is no mass or organomegaly. EXT: Decreased range of motion of right knee secondary to pain. Very mild effusion, no obvious deformity. Significant tenderness to palpation of medial joint line. No obvious ligamentous instability, however examination is severely limited secondary to patient's pain. No pain on palpation of hip or ankle. Sensation intact. Dorsalis pedis palpable, cap refill less than 2 seconds SKIN: Warm, pink, and dry. No erythema or rash Initial Vital Signs Initial Vital Signs: Vital Signs Temperature 98.1 F 11/27/20 19:08 Pulse Rate 90 11/27/20 19:08 Respiratory Rate 18 11/27/20 19:08 Blood Pressure 177/84 H 11/27/20 19:08 Pulse Oximetry 97 11/27/20 19:08 Procedures Orthopedic Splinting/Casting Injury #1: Side: right Lower Extremity Injury Location: knee Lower Extremity Immobilizer: knee immobilizer Other Orthopedic Equipment: crutches Post splinting neuro exam: intact Post splinting vascular exam: intact Placed by: Nursing Course Orders Ordered: ED Orders 11/27/20 19:21 XR knee RT 3V Stat 11/27/20 20:09 CT LE RT wo con Stat Discontinued Medications Hydrocodone Bitart/Acetaminophen (Hydrocodone/Acet 5/325 Prepack) 1 bottle MISC SEEINSTR ONE Stop: 11/27/20 21:58 Last Admin: 11/27/20 22:03 Dose: 1 bottle Documented by: CARLOS Ondansetron HCl (Ondansetron 4 Mg Odt Prepack) 1 bottle MISC SEEINSTR ONE Stop: 11/27/20 21:58 Last Admin: 11/27/20 22:03 Dose: 1 bottle Documented by: CARLOS Vital Signs Vital signs: Vital Signs - 8 hr 11/27/20 23:10 Pulse Rate 95 H Respiratory Rate 16 Blood Pressure 136/65 Pulse Oximetry 96 MDM - Extremity Injury (Lower) Imaging Data Extremity x-ray #1: Radiologist's Impression: [address] [id number] ReportSigned Patient: Mikki Perez JMR#: [id number]: [id number]:[id number]/Sex: 45 / FDate of Service: 11/27/20Loc: EDAccession Number: [id number] Procedure: XR knee RT 3V Ordering Provider: Iker Mo D.O. PROCEDURE: XR KNEE RT 3V INDICATIONS: fall with knee pain, medial joint line TECHNIQUE: 3 views of the knee were acquired. COMPARISON: [facility], BINU, XR KNEE LT 3V, 07/17/2020, 17:15. FINDINGS: Bones: No fractures or dislocations. Mild degenerative change in the patellofemoral compartment. No suspicious bony lesions. Soft tissues: Small joint effusion. No suspicious soft tissue calcifications. IMPRESSION: 1. No visible fractures. 2. Small joint effusion may indicate internal derangement. 3. Mild degenerative change. Dictated by: Eun Waterman M.D. on 11/27/2020 at 20:16 Approved by: Eun Waterman M.D. on 11/27/2020 at 20:18 CT LE: Radiologist's Impression: Mikki Perez Kiersten 45 F [address] [id number] Scan ReportSigned Patient: Mikki Perez JMR#: [id number]: [id number]:[id number]/Sex: 45 / FDate of Service: 11/27/20Loc: EDAccession Number: [id number] Procedure: CT LE RT wo con Ordering Provider: Iker Mo D.O. PROCEDURE: CT LE RT WO CON INDICATIONS: fall, severe pain, cannot weight bear TECHNIQUE: Noncontrast 1-1.5 mm axial sections acquired from the mid-patella to the proximal tibia, with coronal and sagittal reformats. COMPARISON: None. FINDINGS: Image quality: Excellent. Bones: Mildly decreased mineralization. Joint space loss and subcortical cystic change along the lateral facet in the patellofemoral compartment. Minor medial compartment joint space loss. Soft tissues: There is a curvilinear calcification immediately medial to the medial femoral condyle. There may be a donor site more cranial along the medial condyle and cortical avulsion is suspected. There are several small peripherally calcified internally hypodense loose bodies anterior to the lateral joint line, the largest measuring 5 mm. A small joint effusion is present. Visible musculature, tendons, and the visible ligament courses appear normal. IMPRESSION: 1. There may be a small cortical avulsion from the medial condyle, though mechanism is uncertain. 2. Patellofemoral compartment degeneration. 3. Small joint effusion may indicate internal derangement. 4. MRI is recommended to assess for internal derangement. Dictated by: Eun Waterman M.D. on 11/27/2020 at 22:32 Approved by: Eun Waterman M.D. on 11/27/2020 at 22:42 Discharge Plan Departure Patient Disposition: Home Clinical Impression: Acute internal derangement of right knee, Avulsion fracture Instructions: How to Use a Knee Immobilizer Activity Restrictions/Additional Instructions: *You have been diagnosed with [fall with internal derangement and possible avulsion fracture of right knee] *What to do: *Take medications as directed *Follow up with [facility], call Sunday morning for an appointment. Let them know you were seen in the Emergency Department and that we ask that you be seen in follow up *NO WEIGHT BEARING at least until you follow up with orthopedics *Return to ER if you should have any new, worsening or concerning symptoms, such as [increasing pain, numbness, weakness, tingling or other bothersome symptoms] Prescriptions: New hydrocodone-acetaminophen 5-325 mg tablet 1 tab PO Q4-6H PRN (Reason: pain) Qty: 20 RF: 0 No Action phenazopyridine [Pyridium] 100 mg tablet 100 mg PO TID PRN (Reason: pain) 0 Days Qty: 6 RF: 0 omeprazole 40 MG capsule,delayed release(DR/EC) 40 mg PO HS Qty: 30 RF: 3 clonazepam 0.5 MG tablet 0 mg PO BIDP PRNQty: 30 RF: 2 ondansetron 4 mg tablet,disintegrating 4 mg PO TID-QID PRN (Reason: nausea and vomiting) Qty: 10 RF: 0 lidocaine 5 % adhesive patch,medicated 1 patch TOP Q24H PRN (Reason: pain) Qty: 30 RF: 0 cyclobenzaprine 10 mg tablet 10 mg PO BID PRN (Reason: muscle spasm) Qty: 10 RF: 0 albuterol sulfate [ProAir HFA] 90 mcg/actuation HFA aerosol inhaler 1 puff INHALATION Q4H PRN (Reason: asthma) RF: 0 cetirizine 10 MG tablet 10 mg PO DAILY RF: 0 montelukast [Singulair] 10 MG tablet 10 mg PO DAILY RF: 0 cholecalciferol (vitamin D3) 1,000 unit (25 mcg) tablet 1,000 unit PO DAILY RF: 0 oseltamivir [Tamiflu] 75 mg capsule 75 mg PO BID Qty: 10 RF: 0 hydrocodone-acetaminophen [[place]] 5-325 mg tablet 1 tab PO Q6H PRN (Reason: pain) Qty: 10 RF: 0 Referrals: Miscellaneous,Doctor, MD [Primary Care Provider] - Carola Hill MD [Physician] -
[2020-11-27 19:08] VITALS: BP 177/84; PULSE 90; RESP 18; TEMP 36.7; O2SAT 97; BMI 44.9
--- NOTE | 2020-11-27 19:21 | DI.RAD.S_ITS ---
PROCEDURE: XR KNEE RT 3V INDICATIONS: fall with knee pain, medial joint line TECHNIQUE: 3 views of the knee were acquired. COMPARISON: [facility], CR, XR KNEE LT 3V, 07/17/2020, 17:15. FINDINGS: Bones: No fractures or dislocations. Mild degenerative change in the patellofemoral compartment. No suspicious bony lesions. Soft tissues: Small joint effusion. No suspicious soft tissue calcifications. IMPRESSION: 1. No visible fractures. 2. Small joint effusion may indicate internal derangement. 3. Mild degenerative change. Dictated by: Eun Waterman M.D. on 11/27/2020 at 20:16 Approved by: Eun Waterman M.D. on 11/27/2020 at 20:18
--- NOTE | 2020-11-27 20:09 | DI.CT.S_ITS ---
PROCEDURE: CT LE RT WO CON INDICATIONS: fall, severe pain, cannot weight bear TECHNIQUE: Noncontrast 1-1.5 mm axial sections acquired from the mid-patella to the proximal tibia, with coronal and sagittal reformats. COMPARISON: None. FINDINGS: Image quality: Excellent. Bones: Mildly decreased mineralization. Joint space loss and subcortical cystic change along the lateral facet in the patellofemoral compartment. Minor medial compartment joint space loss. Soft tissues: There is a curvilinear calcification immediately medial to the medial femoral condyle. There may be a donor site more cranial along the medial condyle and cortical avulsion is suspected. There are several small peripherally calcified internally hypodense loose bodies anterior to the lateral joint line, the largest measuring 5 mm. A small joint effusion is present. Visible musculature, tendons, and the visible ligament courses appear normal. IMPRESSION: 1. There may be a small cortical avulsion from the medial condyle, though mechanism is uncertain. 2. Patellofemoral compartment degeneration. 3. Small joint effusion may indicate internal derangement. 4. MRI is recommended to assess for internal derangement. Dictated by: Eun Waterman M.D. on 11/27/2020 at 22:32 Approved by: Eun Waterman M.D. on 11/27/2020 at 22:42
[2020-11-27] MEDS: HYDROCODONE/ACET 5/325 PREPACK 1 BOTTLE MISC (22:03)
[2020-11-27] MEDS: ONDANSETRON 4 MG ODT PREPACK 1 BOTTLE MISC (22:03)
[2020-11-27 23:10] VITALS: BP 136/65; PULSE 95; RESP 16; O2SAT 96
== END 2020-11-27 23:11 | disposition home or self-care (01) ==
PROVIDERS: Emergency Provider Emergency Medicine
DX: M23.91 Unspecified internal derangement of right knee (principal); W19.XXXA Unspecified fall, initial encounter
CPT/HCPCS: 73562; 73700; 99284

== ENCOUNTER 2021-03-11 18:46 | Emergency (ER) | payer OTHER, SELFPAY ==
[2021-03-11 18:53] VITALS: BP 159/73; PULSE 80; RESP 12; TEMP 36.6; O2SAT 99; BMI 43.3
[2021-03-11 19:41] LABS: Bacteria Urine Many (>30); Culture Indicated Urine Specimen Cultured; RBC Urine 1-5/HPF (0-5/HPF); Squamous Epithelial Cell Urine 1-5 /HPF (0-5/HPF); WBC Urine 5-10/HPF (0-5/HPF)
[2021-03-11 19:51] LABS: INR 1.1 (0.9-1.3); Prothrombin Time 11.7 SECONDS (10.1-12.7)
[2021-03-11 19:52] LABS: PTT Partial Thromboplastin Tim 31 SECONDS (26.4-36.2)
[2021-03-11 19:53] LABS: Add Manual Diff / Slide Review NO; Basophils Absolute Auto 100 /uL (0-100); Basophils Percent Auto 0.7 % (0-2); Eosinophils Absolute Auto 100 /uL (0-450); Eosinophils Percent Auto 1.3 % (2-4); Hematocrit 32.4 % (36-46); Hemoglobin 10.4 g/dL (12.0-16.0); Lymphocytes Absolute Auto 2100 /uL (1100-4500); Lymphocytes Percent Auto 22.1 % (25-40); Mean Corpuscular HGB Conc 32.1 % (30-36); Mean Corpuscular Hemoglobin 23.6 PG (26-34); Mean Corpuscular Volume 73.6 fL (80-100); Monocytes Absolute Auto 600 /uL (0-900); Monocytes Percent Auto 6.3 % (3-14); Neutrophils Absolute Auto 6500 /uL (1500-7000); Neutrophils Percent Auto 69.6 % (50-75); Platelet Count 362 X10^3/uL (150-400); Red Blood Cell Count 4.41 X10^6/uL (4.0-5.2); Red Cell Distribution Width 15.1 % (11.6-14.8); White Blood Cell Count 9.3 X10^3/uL (4.5-11.0)
[2021-03-11 20:08] LABS: Alanine Aminotransferase 36 IU/L (<35); Albumin 3.5 g/dL (3.5-5.0); Albumin Globulin Ratio 0.9 (1.0-2.8); Alkaline Phosphatase 128 U/L (38-126); Aspartate Aminotransferase 66 IU/L (14-36); BUN Creatinine Ratio 10.4 (6-22); Bilirubin Total 0.3 mg/dL (0.2-1.3); Blood Urea Nitrogen 7 mg/dL (7-17); Calcium 8.3 mg/dL (8.4-10.2); Carbon Dioxide 28 mmol/L (22-32); Chloride 104 mmol/L (98-107); Estimated Glomerular Filt Rate > 60.0 mL/min (>60); Globulin 3.9 g/dL (1.7-4.1); Glucose 122 mg/dL (70-100); HEMOLYSIS < 15 (0-50); Potassium 3.2 mmol/L (3.4-5.1); Sodium 137 mmol/L (137-145); Total Protein 7.4 g/dL (6.3-8.2)
--- NOTE | 2021-03-11 20:59 | ED.RECABL ---
HPI - Recheck/Abnormal Lab/Rx General Chief Complaint: Recheck/Abnormal Lab/Rx Stated Complaint: ON NEW MEDICATION FEEL REALLY SICK HEADACHE Time Seen by Provider: 03/11/21 19:47 Source: patient Mode of arrival: Wheelchair Limitations: no limitations History of Present Illness HPI narrative: 46-year-old female nonsmoker with history of iron deficiency anemia presents with a chief complaint of feeling generally unwell over the past week or so. She has felt a bit fatigued and sometimes lightheaded and dizzy with occasional headache. She states that her headache is been gradual in its onset, is moderate in its intensity in is without any neurologic symptoms such as blurred vision, trouble speech or focal neurologic findings. She has had no trauma or falls. She has had no fever or chills. She did recently start taking iron as a consequence of her anemia. She denies any other change in medications or diet. Initial visit (ago): day(s) Related Data Home Medications Medication Instructions Recorded Confirmed albuterol sulfate [ProAir HFA] 1 puff INHALATION Q4H PRN 08/07/19 10/27/20 cetirizine 10 mg PO DAILY 08/07/19 10/27/20 cholecalciferol (vitamin D3) 1,000 unit PO DAILY 08/07/19 10/27/20 montelukast [Singulair] 10 mg PO DAILY 08/07/19 10/27/20 Previous Rx's Medication Instructions Recorded omeprazole 40 mg PO HS #30 cap 08/30/17 clonazepam 0 mg PO BIDP PRN #30 tab 11/01/17 oseltamivir [Tamiflu] 75 mg PO BID #10 cap 10/18/19 ondansetron 4 mg PO TID-QID PRN #10 tab 01/17/20 cyclobenzaprine 10 mg PO BID PRN #10 tab 07/17/20 lidocaine 1 patch TOP Q24H PRN #30 each 07/17/20 hydrocodone-acetaminophen [Newell] 1 tab PO Q6H PRN #10 tab 10/09/20 phenazopyridine 100 mg tablet 100 mg PO TID PRN 0 Days #6 tab 10/14/20 hydrocodone-acetaminophen 1 tab PO Q4-6H PRN #20 tab 11/27/20 cephalexin 500 mg PO BID #10 cap 05/21/21 potassium chloride 20 meq PO BID #10 tab 03/11/21 Allergies Allergy/AdvReac Type Severity Reaction Status Date / Time ciprofloxacin Allergy Mild GI UPSET Verified 03/11/21 18:56 codeine AdvReac Unknown STOMACH Verified 03/11/21 18:56 Review of Systems Constitutional Constitutional: Denies chills, Reports fatigue, Denies fever(s), Denies frequent falls, Reports headache(s), Denies lethargy and Reports weakness Eyes Eyes: Denies change in vision, Denies eye discharge, Denies irritation and Denies loss of vision ENT Ears, Nose, Mouth, and Throat: Denies change in voice, Denies dizziness, Reports headache(s), Denies neck pain, Denies sore throat and Denies throat swelling Cardiovascular Cardiovascular: Denies chest pain, Denies irregular heart rhythm, Denies lightheadedness, Denies palpitations, Denies dyspnea, Denies dyspnea on exertion and Denies orthopnea Respiratory Respiratory: Denies cough, Denies dyspnea, Denies dyspnea on exertion and Denies wheezing Gastrointestinal Gastrointestinal: Denies abdominal pain, Denies change in bowel habits, Denies diarrhea, Denies nausea and Denies vomiting Musculoskeletal Musculoskeletal: Denies neck pain and Denies numbness Integumentary/Breasts Skin/Breast: Denies pruritus, Denies erythema, Denies rash and Denies wounds Neurologic Neurologic: Denies behavioral changes, Denies confusion, Denies dizziness, Denies frequent falls, Reports headache(s), Denies loss of vision, Denies numbness and Reports weakness Psychiatric Psychiatric: Denies anxiety, Denies behavioral changes, Denies confusion, Denies depression, Denies homicidal ideation and Denies suicidal ideation Endocrine Endocrine: Reports fatigue, Denies flushing and Denies palpitations Hematologic/Lymphatic Hematologic/Lymphatic: Denies easy bruising Allergic/Immunologic Allergic/Immunologic: Denies urticaria, Denies throat swelling and Denies wheezing Patient History Medical History Anxiety Seasonal allergies UTI (urinary tract infection) Surgical History History of bilateral tubal ligation History of cholecystectomy Social History marital status: Smoking Status: Never smoker alcohol intake: current Smoking Status: Never smoker alcohol intake frequency: holidays/special occasions only Substance Use Type: marijuana Exam Narrative Exam Narrative: GENERAL: [46] year old patient appears stated age. Well-nourished, well-developed patient, in mild distress. HEAD: Atraumatic. Normocephalic. EYES: Pupils equal round and reactive. Extraocular motions intact. No scleral icterus. No injection or drainage. ENT: Nose without bleeding, purulent drainage. Throat without erythema, tonsillar hypertrophy or exudate. Airway patent. NECK: Trachea midline. Non tender CARDIOVASCULAR: Regular rate and rhythm without murmurs, gallops, or rubs. RESPIRATORY: Clear to auscultation. Breath sounds equal bilaterally. No wheezes, rales, or rhonchi. GASTROINTESTINAL: Abdomen soft, non-tender, nondistended. EXTREMITIES: No edema or joint tenderness. BACK: Nontender without deformity or crepitance. No flank tenderness. NEURO: AOx3. SKIN: No rash or erythema of visible areas NIH Stroke Scale 1a. LOC: Patient is alert and keenly responsive (0) 1b. LOC Questions: Patient answers both LOC questions accurately (0) 1c. LOC Commands: Patient performs both tasks correctly (0) 2. Best Gaze: Normal (0) 3. Visual: No visual loss (0) 4. Facial palsy: Normal symmetrical movements (0) 5. Motor arm: No drift (0) 6. Motor leg: No drift (0) 7. Limb ataxia: Absent (0) 8. Sensory: Normal (0) 9. Best language: No aphasia; normal (0) 10. Dysarthria: Normal (0) 11. Extinction and inattention: No abnormality (0) NIHSS: 0 Initial Vital Signs Initial Vital Signs: Vital Signs Temperature 97.9 F 03/11/21 18:53 Pulse Rate 80 03/11/21 18:53 Respiratory Rate 12 03/11/21 18:53 Blood Pressure 159/73 H 03/11/21 18:53 Pulse Oximetry 99 03/11/21 18:53 Course Orders Ordered: Discontinued Medications Potassium Chloride (Potassium Chloride 20 Meq/15 Ml Udc) 40 meq PO NOW ONE Stop: 03/11/21 21:15 Last Admin: 03/11/21 21:18 Dose: 40 meq Documented by: RAULITO Potassium Chloride (Potassium Chloride 20 Meq/15 Ml Udc) 40 meq PO NOW ONE Stop: 03/11/21 21:22 Last Admin: 03/11/21 21:22 Dose: Not Given Documented by: RAULITO Vital Signs Vital signs: Vital Signs - 8 hr 03/11/21 18:53 Temperature 97.9 F Pulse Rate 80 Respiratory Rate 12 Blood Pressure 159/73 H Pulse Oximetry 99 MDM - Recheck/Abnormal Lab/Rx Lab Data Result diagrams: 03/11/21 19:36 03/11/21 19:36 Labs: Lab Results 03/11/21 03/11/21 03/11/21 Range/Units 19:25 19:36 19:36 WBC 9.3 (4.5-11.0) X10^3/uL RBC 4.41 (4.0-5.2) X10^6/uL Hgb 10.4 L (12.0-16.0) g/dL Hct 32.4 L (36-46) % MCV 73.6 L (80-100) fL MCH 23.6 L (26-34) PG MCHC 32.1 (30-36) % RDW 15.1 H (11.6-14.8) % Plt Count 362 (150-400) X10^3/uL Neut % (Auto) 69.6 (50-75) % Lymph % (Auto) 22.1 L (25-40) % [place] % (Auto) 6.3 (3-14) % Eos % (Auto) 1.3 L (2-4) % Baso % (Auto) 0.7 (0-2) % Neut # (Auto) 6500 (6203-7219) /uL Lymph # (Auto) 2100 (7379-3605) /uL [place] # (Auto) 600 (0-900) /uL Eos # (Auto) 100 (0-450) /uL Baso # (Auto) 100 (0-100) /uL PT 11.7 (10.1-12.7) SECONDS INR 1.1 (0.9-1.3) APTT 31 (26.4-36.2) SECONDS Sodium (137-145) mmol/L Potassium (3.4-5.1) mmol/L Chloride (98-107) mmol/L Carbon Dioxide (22-32) mmol/L BUN (7-17) mg/dL Creatinine (0.52-1.04) mg/dL Estimated GFR (>60) mL/min BUN/Creatinine Ratio (6-22) Glucose (70-100) mg/dL Calcium (8.4-10.2) mg/dL Total Bilirubin (0.2-1.3) mg/dL AST (14-36) IU/L ALT (<35) IU/L Alkaline Phosphatase (38-126) U/L Total Protein (6.3-8.2) g/dL Albumin (3.5-5.0) g/dL Globulin (1.7-4.1) g/dL Albumin/Globulin Ratio (1.0-2.8) Urine RBC 1-5/hpf (0-5/HPF) Urine WBC 5-10/hpf H (0-5/HPF) Ur Squamous Epith Cells 1-5 /hpf (0-5/HPF) Urine Bacteria Many (>30) H (None) Ur Culture Indicated? Specimen cultured 03/11/21 Range/Units 19:36 WBC (4.5-11.0) X10^3/uL RBC (4.0-5.2) X10^6/uL Hgb (12.0-16.0) g/dL Hct (36-46) % MCV (80-100) fL MCH (26-34) PG MCHC (30-36) % RDW (11.6-14.8) % Plt Count (150-400) X10^3/uL Neut % (Auto) (50-75) % Lymph % (Auto) (25-40) % [place] % (Auto) (3-14) % Eos % (Auto) (2-4) % Baso % (Auto) (0-2) % Neut # (Auto) (7207-0340) /uL Lymph # (Auto) (5496-6336) /uL [place] # (Auto) (0-900) /uL Eos # (Auto) (0-450) /uL Baso # (Auto) (0-100) /uL PT (10.1-12.7) SECONDS INR (0.9-1.3) APTT (26.4-36.2) SECONDS Sodium 137 (137-145) mmol/L Potassium 3.2 L (3.4-5.1) mmol/L Chloride 104 (98-107) mmol/L Carbon Dioxide 28 (22-32) mmol/L BUN 7 (7-17) mg/dL Creatinine 0.67 (0.52-1.04) mg/dL Estimated GFR > 60.0 (>60) mL/min BUN/Creatinine Ratio 10.4 (6-22) Glucose 122 H (70-100) mg/dL Calcium 8.3 L (8.4-10.2) mg/dL Total Bilirubin 0.3 (0.2-1.3) mg/dL AST 66 H (14-36) IU/L ALT 36 H (<35) IU/L Alkaline Phosphatase 128 H (38-126) U/L Total Protein 7.4 (6.3-8.2) g/dL Albumin 3.5 (3.5-5.0) g/dL Globulin 3.9 (1.7-4.1) g/dL Albumin/Globulin Ratio 0.9 L (1.0-2.8) Urine RBC (0-5/HPF) Urine WBC (0-5/HPF) Ur Squamous Epith Cells (0-5/HPF) Urine Bacteria (None) Ur Culture Indicated? Point of Care Testing Test Results Negative Urine Dip Bedside Urine Glucose Negative Bedside Urine Bilirubin - Negative Bedside Urine Ketone - Negative Urine Specific [place] 1.015 Bedside Urine Occult Blood - Negative Bedside Urine pH 6.0 Bedside Urine Protein - Negative Bedside Urine Urobilinogen - Negative Bedside Urine Nitrite - Negative Bedside Urine Leukocytes ++ 125 Esterase MDM Narrative Medical decision making narrative: Patient with very reassuring physical exam and diagnostic findings. She has no focal findings on her exam or in her complaint. It seems likely that the combination of urinary tract infection, low potassium, anemia, plus or minus thought iron her all playing together to make her feel poorly. Return precautions given and questions answered to her apparent satisfaction Discharge Plan Departure Patient Disposition: Home Clinical Impression: Acute hypokalemia UTI (urinary tract infection) Qualifiers: Urinary tract infection type: acute cystitis Hematuria presence: without hematuria Qualified Code(s): N30.00 - Acute cystitis without hematuria Anemia Qualifiers: Anemia type: iron deficiency Iron deficiency anemia type: unspecified iron deficiency Qualified Code(s): D50.9 - Iron deficiency anemia, unspecified Instructions: Anemia, DI for Urinary Tract Infection (UTI), DI for Hypokalemia Activity Restrictions/Additional Instructions: *You have been diagnosed with [weakness and dizziness, most likely due to a combination of factors including anemia, low potassium and urinary tract infection.] *What to do: *Please continue to take your regular medications as directed. [x ] New medication prescriptions sent to your pharmacy: [[facility] ] [ ] New medication written as a paper prescription [ ] No new medications given *Please follow up with your primary care provider in 2-3 days, call for an appointment. Let them know you were seen in the Emergency Department and that we ask that you be seen in follow up. We will electronically transmit a record of today's note if your PCP is in our system *If you do not have a primary care provider please contact the [facility] Resource line at [phone]. They will ask some questions about your medical history and help get you set up with a doctor in the community. *Return to Emergency Department if you should have any new, worsening or concerning symptoms, such as [fever greater than 101 F, shaking chills, worsening pain, persistent vomiting or other bothersome symptoms] Prescriptions: New potassium chloride 20 mEq tablet extended release 20 meq PO BID Qty: 10 RF: 0 cephalexin 500 mg capsule 500 mg PO BID Qty: 10 RF: 0 No Action phenazopyridine [Pyridium] 100 mg tablet 100 mg PO TID PRN (Reason: pain) 0 Days Qty: 6 RF: 0 omeprazole 40 MG capsule,delayed release(DR/EC) 40 mg PO HS Qty: 30 RF: 3 clonazepam 0.5 MG tablet 0 mg PO BIDP PRNQty: 30 RF: 2 ondansetron 4 mg tablet,disintegrating 4 mg PO TID-QID PRN (Reason: nausea and vomiting) Qty: 10 RF: 0 lidocaine 5 % adhesive patch,medicated 1 patch TOP Q24H PRN (Reason: pain) Qty: 30 RF: 0 cyclobenzaprine 10 mg tablet 10 mg PO BID PRN (Reason: muscle spasm) Qty: 10 RF: 0 hydrocodone-acetaminophen 5-325 mg tablet 1 tab PO Q4-6H PRN (Reason: pain) Qty: 20 RF: 0 albuterol sulfate [ProAir HFA] 90 mcg/actuation HFA aerosol inhaler 1 puff INHALATION Q4H PRN (Reason: asthma) RF: 0 cetirizine 10 MG tablet 10 mg PO DAILY RF: 0 montelukast [Singulair] 10 MG tablet 10 mg PO DAILY RF: 0 cholecalciferol (vitamin D3) 1,000 unit (25 mcg) tablet 1,000 unit PO DAILY RF: 0 oseltamivir [Tamiflu] 75 mg capsule 75 mg PO BID Qty: 10 RF: 0 hydrocodone-acetaminophen [Newell] 5-325 mg tablet 1 tab PO Q6H PRN (Reason: pain) Qty: 10 RF: 0
[2021-03-11] MEDS: POTASSIUM CHLORIDE 20 MEQ/15 ML UDC 40 MEQ PO (21:18)
[2021-03-11 21:41] VITALS: BP 150/75; PULSE 76; RESP 18; O2SAT 98
== END 2021-03-11 21:45 | disposition home or self-care (01) ==
PROVIDERS: Emergency Provider Emergency Medicine
DX: E87.6 Hypokalemia (principal); N30.00 Acute cystitis without hematuria; D50.9 Iron deficiency anemia, unspecified; R51.9 Headache, unspecified
CPT/HCPCS: 36415; 80053; 81003; 81015; 81025; 85025; 85610; 85730; 87077; 87086; 87186; 99283; 99284

== ENCOUNTER → 2021-05-12 15:18 | Outpatient (CLI) | payer OTHER, SELFPAY ==
[2021-05-13 15:45] LABS: Calcium 8.4 mg/dL (8.7-10.2); Parathyroid Hormone, Intact 70 pg/mL (15-65)
== END ==
PROVIDERS: Referring Provider Registered Nurse; Visit Provider Registered Nurse
DX: E83.51 Hypocalcemia (principal)
CPT/HCPCS: 36415; 82310; 83970

== ENCOUNTER → 2021-08-02 14:44 | Outpatient (CLI) | payer OTHER, SELFPAY ==
[2021-08-02 16:29] LABS: Magnesium 2.2 mg/dL (1.6-2.3); Phosphorous 3.6 mg/dL (2.5-4.5)
[2021-08-03 15:41] LABS: Calcium 8.9 mg/dL (8.7-10.2); Parathyroid Hormone, Intact 41 pg/mL (15-65)
== END ==
PROVIDERS: Referring Provider Registered Nurse; Visit Provider Registered Nurse
DX: E83.51 Hypocalcemia (principal)
CPT/HCPCS: 36415; 82310; 83735; 83970; 84100

== ENCOUNTER 2021-08-12 03:30 | Emergency (ER) | payer OTHER, SELFPAY ==
[2021-08-12] VITALS (7 sets, daily range): BP systolic 126–147; BP diastolic 60–92; PULSE 96–110; RESP 21; TEMP 37.6; O2SAT 96–99; BMI 45.3
--- NOTE | 2021-08-12 04:05 | ED.GENADULT ---
HPI - General Adult General Chief complaint: Nausea/Vomiting/Diarrhea Stated complaint: possible food poisoning Time Seen by Provider: 08/12/21 03:41 History of Present Illness HPI narrative: 46-year-old woman with a history of allergies and asthma was awakened at 1 in the morning with severe diarrhea and vomiting. She believes that the chicken wings and mac and cheese that she had earlier this evening is the culprit. She has had multiple episodes of both and comes in for further evaluation. She complains of abdominal cramping notes that she is slightly dizzy when she stands up and is concerned that she is dehydrated. She describes no recent fever cough chills she has no headache, chest pain or palpitations. She notes that nobody else in her family 8 same combination of foods this evening. Related Data Home Medications Medication Instructions Recorded Confirmed albuterol sulfate 90 mcg/actuation 1 puff INHALATION Q4H PRN 08/07/19 10/27/20 aerosol inhaler (ProAir HFA) cetirizine 10 mg tablet 10 mg PO DAILY 08/07/19 10/27/20 montelukast 10 mg tablet 10 mg PO DAILY 08/07/19 08/09/21 (Singulair) Previous Rx's Medication Instructions Recorded clonazepam 0.5 mg tablet 0 mg PO BIDP PRN #30 tab 11/01/17 Allergies Allergy/AdvReac Type Severity Reaction Status Date / Time ciprofloxacin Allergy Mild GI UPSET Verified 08/09/21 09:53 codeine AdvReac Unknown STOMACH Verified 08/09/21 09:53 Review of Systems Review of Systems Narrative: Remainder of complete review of systems is otherwise unremarkable except for that included in the HPI. Patient History Medical History Anxiety Elevated fasting blood sugar FHx: diabetes mellitus History of hypercalcemia Obesity, morbid, BMI 40.0-49.9 Seasonal allergies UTI (urinary tract infection) Surgical History History of bilateral tubal ligation History of cholecystectomy Family History Father Diabetes mellitus Mother Cancer Social History marital status: Smoking Status: Never smoker alcohol intake: current Smoking Status: Never smoker alcohol intake frequency: holidays/special occasions only Substance Use Type: marijuana Exam Narrative Exam Narrative: General: Appears moderately uncomfortable with nausea, Able to give a complete and coherent history. Well-nourished well-developed HEENT: Moist mucous membranes, normal sclera with reactive pupils, Respiratory: Lungs are clear to auscultation, no wheezing no rales no rhonchi. Full and symmetrical air movement Cardiac: Tachycardic withRegular rate and rhythm no murmurs no bruits Abdomen: Obese, Soft, nontender, hyperactive bowel tones, no flank pain Skin: Warm and dry, no rashes, good capillary refill Neurologic: Grossly neurologically intact with no obvious asymmetries or abnormalities Extremities: No trauma, well perfused Psych: Cooperative, appropriate insight and affect Initial Vital Signs Initial Vital Signs: Vital Signs Temperature 99.6 F 08/12/21 03:45 Pulse Rate 107 H 08/12/21 03:45 Respiratory Rate 21 08/12/21 03:45 Blood Pressure 140/92 H 08/12/21 03:45 Pulse Oximetry 99 08/12/21 03:45 Course Orders Ordered: ED Orders 08/12/21 04:00 Complete Blood Count AUTO DIFF Stat Comprehensive Metabolic Panel Stat Discontinued Medications Sodium Chloride (Normal Saline 0.9%) 1,000 mls @ 2,000 mls/hr IV BOLUS ONE Stop: 08/12/21 04:36 Last Infusion: 08/12/21 05:20 Dose: Infused Documented by: Sodium Chloride (Normal Saline 0.9%) 1,000 mls @ 1,000 mls/hr IV BOLUS ONE Stop: 08/12/21 05:43 Last Admin: 08/12/21 05:18 Dose: 1,000 mls/hr Documented by: Ketorolac Tromethamine (Ketorolac 30 Mg/Ml Vial) 15 mg IV NOW ONE Stop: 08/12/21 05:29 Last Admin: 08/12/21 05:35 Dose: 15 mg Documented by: Ondansetron HCl (Ondansetron 4 Mg/2 Ml Inj) 4 mg IV NOW ONE Stop: 08/12/21 04:08 Last Admin: 08/12/21 04:15 Dose: 4 mg Documented by: Pantoprazole Sodium (Pantoprazole 40 Mg Vial) 40 mg IV NOW ONE Stop: 08/12/21 05:29 Last Admin: 08/12/21 05:35 Dose: 40 mg Documented by: Vital Signs Vital signs: Vital Signs - 8 hr 08/12/21 03:45 08/12/21 04:17 08/12/21 04:30 Temperature 99.6 F Pulse Rate 107 H 110 H 105 H Respiratory Rate 21 Blood Pressure 140/92 H 137/64 147/80 H Pulse Oximetry 99 97 96 Medical Decision Making Lab Data Result diagrams: 08/12/21 04:00 08/12/21 04:00 Labs: Lab Results 08/12/21 08/12/21 Range/Units 04:00 04:00 WBC 15.1 H (4.5-11.0) X10^3/uL RBC 4.78 (4.0-5.2) X10^6/uL Hgb 13.0 (12.0-16.0) g/dL Hct 40.0 (36-46) % MCV 83.8 (80-100) fL MCH 27.2 (26-34) PG MCHC 32.4 (30-36) % RDW 14.2 (11.6-14.8) % Plt Count 325 (150-400) X10^3/uL Neut % (Auto) 88.9 H (50-75) % Lymph % (Auto) 5.1 L (25-40) % [place] % (Auto) 4.5 (3-14) % Eos % (Auto) 1.1 L (2-4) % Baso % (Auto) 0.4 (0-2) % Neut # (Auto) 13339 H (3036-6656) /uL Lymph # (Auto) 800 L (8982-7975) /uL [place] # (Auto) 700 (0-900) /uL Eos # (Auto) 200 (0-450) /uL Baso # (Auto) 100 (0-100) /uL Sodium 140 (137-145) mmol/L Potassium 3.9 (3.4-5.1) mmol/L Chloride 104 (98-107) mmol/L Carbon Dioxide 27 (22-32) mmol/L BUN 9 (7-17) mg/dL Creatinine 0.86 (0.52-1.04) mg/dL Estimated GFR > 60.0 (>60) mL/min BUN/Creatinine Ratio 10.5 (6-22) Glucose 129 H (70-100) mg/dL Calcium 9.2 (8.4-10.2) mg/dL Total Bilirubin 0.6 (0.2-1.3) mg/dL AST 68 H (14-36) IU/L ALT 39 H (<35) IU/L Alkaline Phosphatase 145 H (38-126) U/L Total Protein 8.2 (6.3-8.2) g/dL Albumin 4.0 (3.5-5.0) g/dL Globulin 4.2 H (1.7-4.1) g/dL Albumin/Globulin Ratio 1.0 (1.0-2.8) MDM Narrative Medical decision making narrative: 46-year-old woman with abrupt an acute onset of vomiting and diarrhea after eating chicken wings and macaroni and cheese. She is also starting her menstrual cycle today and having menstrual cramps. Feeling significantly better after 2 L of fluid in some foot Zofran. She is given some Toradol to help with the menstrual cramps and Protonix after the repeated episodes of vomiting this evening. White blood cell count was slightly elevated which I suspect is more de margination secondary to the vomiting and diarrhea rather than a reflection of infection. Did review this with her. Encouraged her return for additional evaluation if she feels that the pain is not improving within 12 hours of discharge. Discharge Plan Departure Patient Disposition: Home Clinical Impression: Vomiting and diarrhea Instructions: DI for Vomiting -- Adult Activity Restrictions/Additional Instructions: Thank you for coming in tonight I do think that you are correct, this is very likely food related nausea and vomiting. In the emergency department he received 2 L of fluid, nausea medicine, stomach acid medicine and some medicine to help with your cramps. Your lab work was relatively reassuring. Your white blood cell count was slightly elevated. I suspect that is simply from all of the vomiting. With food poisoning you should be better within about 12 hours. If there is something else going on, or you are developing any type of infection in your abdomen, you you will still be having symptoms by this evening. If that is the case, you should return to the ER for additional evaluation. I hope you feel better Prescriptions: No Action clonazepam 0.5 MG tablet 0 mg PO BIDP PRNQty: 30 RF: 2 albuterol sulfate [ProAir HFA] 90 mcg/actuation HFA aerosol inhaler 1 puff INHALATION Q4H PRN (Reason: asthma) RF: 0 cetirizine 10 MG tablet 10 mg PO DAILY RF: 0 montelukast [Singulair] 10 MG tablet 10 mg PO DAILY RF: 0 Referrals: Dru Perez DO [Primary Care Provider] -
[2021-08-12] MEDS: ONDANSETRON 4 MG/2 ML INJ IV (04:15)
[2021-08-12] MEDS: SODIUM CHLORIDE 0.9% 1,000 ML 2000 ML IV (04:15)
[2021-08-12 04:24] LABS: Add Manual Diff / Slide Review NO; Basophils Absolute Auto 100 /uL (0-100); Basophils Percent Auto 0.4 % (0-2); Eosinophils Absolute Auto 200 /uL (0-450); Eosinophils Percent Auto 1.1 % (2-4); Lymphocytes Absolute Auto 800 /uL (1100-4500); Lymphocytes Percent Auto 5.1 % (25-40); Mean Corpuscular HGB Conc 32.4 % (30-36); Mean Corpuscular Hemoglobin 27.2 PG (26-34); Mean Corpuscular Volume 83.8 fL (80-100); Monocytes Absolute Auto 700 /uL (0-900); Monocytes Percent Auto 4.5 % (3-14); Neutrophils Absolute Auto 13400 /uL (1500-7000); Neutrophils Percent Auto 88.9 % (50-75); Platelet Count 325 X10^3/uL (150-400); Red Blood Cell Count 4.78 X10^6/uL (4.0-5.2); Red Cell Distribution Width 14.2 % (11.6-14.8); White Blood Cell Count 15.1 X10^3/uL (4.5-11.0)
[2021-08-12 04:28] LABS: Alanine Aminotransferase 39 IU/L (<35); Alkaline Phosphatase 145 U/L (38-126); Aspartate Aminotransferase 68 IU/L (14-36); BUN Creatinine Ratio 10.5 (6-22); Bilirubin Total 0.6 mg/dL (0.2-1.3); Blood Urea Nitrogen 9 mg/dL (7-17); Calcium 9.2 mg/dL (8.4-10.2); Carbon Dioxide 27 mmol/L (22-32); Chloride 104 mmol/L (98-107); Estimated Glomerular Filt Rate > 60.0 mL/min (>60); Globulin 4.2 g/dL (1.7-4.1); Glucose 129 mg/dL (70-100); HEMOLYSIS < 15 (0-50); Potassium 3.9 mmol/L (3.4-5.1); Sodium 140 mmol/L (137-145); Total Protein 8.2 g/dL (6.3-8.2)
[2021-08-12] MEDS: SODIUM CHLORIDE 0.9% 1,000 ML 1000 ML IV (05:18)
[2021-08-12] MEDS: PANTOPRAZOLE 40 MG VIAL IV (05:35)
[2021-08-12] MEDS: KETOROLAC 30 MG/ML VIAL 15 MG IV (05:35)
== END 2021-08-12 06:48 | disposition home or self-care (01) ==
PROVIDERS: Emergency Provider Emergency Medicine; PCP Family Medicine
DX: R11.2 Nausea with vomiting, unspecified (principal); R19.7 Diarrhea, unspecified
CPT/HCPCS: 36415; 80053; 85025; 96361; 96374; 96375; 99284; C9113; J1885; J2405

== ENCOUNTER → 2021-08-19 10:40 | Outpatient (CLI) | payer OTHER, SELFPAY ==
[2021-08-19 11:43] LABS: Add Manual Diff / Slide Review NO; Basophils Absolute Auto 100 /uL (0-100); Basophils Percent Auto 0.8 % (0-2); Eosinophils Absolute Auto 200 /uL (0-450); Hematocrit 37.4 % (36-46); Hemoglobin 12.3 g/dL (12.0-16.0); Lymphocytes Absolute Auto 1700 /uL (1100-4500); Lymphocytes Percent Auto 20.3 % (25-40); Mean Corpuscular HGB Conc 32.9 % (30-36); Mean Corpuscular Hemoglobin 27.5 PG (26-34); Mean Corpuscular Volume 83.7 fL (80-100); Monocytes Absolute Auto 500 /uL (0-900); Monocytes Percent Auto 5.4 % (3-14); Neutrophils Absolute Auto 6100 /uL (1500-7000); Neutrophils Percent Auto 71.5 % (50-75); Platelet Count 390 X10^3/uL (150-400); Red Blood Cell Count 4.47 X10^6/uL (4.0-5.2); Red Cell Distribution Width 14.5 % (11.6-14.8); White Blood Cell Count 8.5 X10^3/uL (4.5-11.0)
[2021-08-19 11:55] LABS: Hemoglobin A1C% w Est Avg Glu 5.2 % (4.0-6.0)
[2021-08-19 12:06] LABS: Alanine Aminotransferase 43 IU/L (<35); Alkaline Phosphatase 138 U/L (38-126); Aspartate Aminotransferase 83 IU/L (14-36); BUN Creatinine Ratio 10.1 (6-22); Bilirubin Total 0.6 mg/dL (0.2-1.3); Blood Urea Nitrogen 8 mg/dL (7-17); Calcium 8.9 mg/dL (8.4-10.2); Carbon Dioxide 30 mmol/L (22-32); Chloride 105 mmol/L (98-107); Cholesterol 164 mg/dL (140-199); Estimated Glomerular Filt Rate > 60.0 mL/min (>60); Globulin 3.9 g/dL (1.7-4.1); Glucose 94 mg/dL (70-100); HDL Cholesterol 64 mg/dL (40-60); HEMOLYSIS < 15 (0-50); LDL Cholesterol Calculated 73 mg/dL (<100); Potassium 3.8 mmol/L (3.4-5.1); Sodium 140 mmol/L (137-145); Total Protein 7.9 g/dL (6.3-8.2); Triglycerides 137 mg/dL (35-150)
[2021-08-19 12:21] LABS: Vitamin D 25 Hydroxy (D3) 38.7 ng/mL (30.0-100.0)
[2021-08-19 12:22] LABS: Free T3, Triiodothyronine Free 4.64 pg/mL (2.77-5.27); Free T4, Direct Thyroxine 1.32 ng/dL (0.78-2.19)
[2021-08-19 12:36] LABS: Thyroid Stimulating Hormone 0.455 uIU/mL (0.47-4.68)
== END ==
PROVIDERS: PCP Family Medicine; Referring Provider Family Medicine; Visit Provider Family Medicine
DX: R03.0 Elevated blood-pressure reading, without diagnosis of hypertension (principal); R73.01 Impaired fasting glucose; Z83.3 Family history of diabetes mellitus
CPT/HCPCS: 36415; 80053; 80061; 82306; 83036; 84439; 84443; 84481; 85025

== ENCOUNTER → 2021-10-03 14:30 | Outpatient (CLI) | payer OTHER, SELFPAY ==
--- NOTE | 2021-10-03 14:33 | DI.US.S_ITS ---
PROCEDURE: US PELVIC COMPLETE INDICATIONS: DISFUNCTIONAL BLEEDING TECHNIQUE: Real-time scanning was performed of the pelvic organs, with image documentation. Additional endovaginal scanning was necessary due to incomplete visualization of the adnexal and endometrial structures by transabdominal scanning. COMPARISON: None. FINDINGS: Uterus: Uterus is anteverted and normal in size at 9.1 x 4.7 x 7.4 cm. The myometrium is mildly heterogeneous. The endometrium measures 9.4 mm combined thickness. An ovoid structures identified in the left fundus, measuring up to 4.6 cm, most consistent with a fibroid. Hypoechoic lesion in the cervix, compatible with a nabothian cyst. Ovaries: The ovaries are not well seen. A hypoechoic lesion is seen in the right adnexa, measuring up to 9.1 cm, most consistent with an ovarian or peritoneal inclusion cyst. Other: No pathologic free abdominal or pelvic fluid. IMPRESSION: Hypoechoic lesion in the right adnexa, which may reflect a peritoneal inclusion or ovarian cyst. Consider sonographic follow-up in 6-12 weeks to ensure decreasing size. We strive to produce accurate, complete, and clear reports of imaging services. To assist us in improving patient care, this report was composed using standard report templates and voice recognition software. Therefore, it may contain abnormal punctuation, insertions and/or omissions. Occasional wrong-word or sound-alike substitutions may occur. Though we review the report and make efforts to correct it, we do recommend that the report be read carefully in proper context to recognize any text inaccuracies. Dictated by: Isaiah Kern M.D. on 10/03/2021 at 15:48 Approved by: Isaiah Kern M.D. on 10/03/2021 at 15:52
== END ==
PROVIDERS: PCP Family Medicine; Referring Provider Family Medicine; Visit Provider Family Medicine
DX: N92.4 Excessive bleeding in the premenopausal period (principal)
CPT/HCPCS: 76830; 76856

== ENCOUNTER → 2021-11-21 08:12 | Outpatient (CLI) | payer OTHER, SELFPAY ==
[2021-11-22 16:08] LABS: Candida species Negative (Negative); Gardnerella vaginalis Positive (Negative); Trichomoas vaginalis Negative (Negative)
== END ==
PROVIDERS: PCP Family Medicine; Visit Provider Obstetrics & Gynecology
DX: A59.9 Trichomoniasis, unspecified (principal)
CPT/HCPCS: 87480; 87510; 87660

== ENCOUNTER → 2021-11-21 08:24 | Outpatient (CLI) | payer OTHER, SELFPAY ==
[2021-11-21 10:43] LABS: Cancer Antigen 125 9.5 U/mL (0-35)
== END ==
PROVIDERS: PCP Family Medicine; Referring Provider Obstetrics & Gynecology; Visit Provider Obstetrics & Gynecology
DX: N83.209 Unspecified ovarian cyst, unspecified side (principal); A59.9 Trichomoniasis, unspecified
CPT/HCPCS: 36415; 86304; 87480; 87510; 87660

== ENCOUNTER 2022-02-10 02:23 | Emergency (ER) | payer OTHER, SELFPAY ==
[2022-02-10 02:33] VITALS: PULSE 92; O2SAT 98
[2022-02-10 02:36] VITALS: BP 149/69; PULSE 92; RESP 16; TEMP 36.8; O2SAT 99; BMI 44.6
--- NOTE | 2022-02-10 02:53 | ED.GENADULT ---
HPI - General Adult General Chief complaint: Upper Respiratory Symptoms Stated complaint: ASTHMA FLARE Time Seen by Provider: 02/10/22 02:48 Source: patient Mode of arrival: Ambulatory History of Present Illness HPI narrative: 47-year-old female. Has a history of asthma. For the past several days has had increasing issues with sinus congestion and coughing and wheezing. She states that she was recently switched to a new type of albuterol inhaler which she thinks is not help her as much. She also has QVAR at home which she only uses occasionally. She denies any fevers. She feels that her symptoms started after she spent an extended period of time outside in the cold air. She is on Zyrtec at home for allergies does admit that her allergies have been acting up recently. Related Data Home Medications Medication Instructions Recorded Confirmed lisinopril 10 mg tablet 10 mg PO DAILY 01/06/22 Previous Rx's Medication Instructions Recorded albuterol sulfate 90 mcg/actuation 1 puff INHALATION Q4H PRN #8.5 g 12/30/21 aerosol inhaler (ProAir HFA) cetirizine 10 mg tablet 10 mg PO DAILY #90 tab 12/30/21 clonazepam 0.5 mg tablet 1 mg PO BID PRN #60 tab 12/30/21 montelukast 10 mg tablet 10 mg PO DAILY #90 tab 12/30/21 (Singulair) Allergies Allergy/AdvReac Type Severity Reaction Status Date / Time ciprofloxacin Allergy Mild GI UPSET Verified 11/21/21 08:00 codeine AdvReac Unknown STOMACH Verified 11/21/21 08:00 Review of Systems Constitutional Constitutional: Denies fever(s) ENT Ears, Nose, Mouth, and Throat: Reports nasal discharge and Reports sinus pressure Cardiovascular Cardiovascular: Reports dyspnea Respiratory Respiratory: Reports cough, Reports dyspnea and Reports wheezing Integumentary/Breasts Skin/Breast: Reports system reviewed and no additional complaints, except as documented Hematologic/Lymphatic On Anticoagulants: No Allergic/Immunologic Allergic/Immunologic: Reports wheezing Patient History Medical History Anxiety Elevated fasting blood sugar Fatty liver disease, nonalcoholic FHx: diabetes mellitus History of hypercalcemia Obesity, morbid, BMI 40.0-49.9 Premenopausal menorrhagia Seasonal allergies UTI (urinary tract infection) Surgical History History of bilateral tubal ligation History of cholecystectomy Family History Father Diabetes mellitus Hypertension Mother Cancer Hypertension Social History marital status: Smoking Status: Never smoker alcohol intake: current Smoking Status: Never smoker alcohol intake frequency: holidays/special occasions only Substance Use Type: marijuana Exam Initial Vital Signs Initial Vital Signs: Vital Signs Temperature 98.2 F 02/10/22 02:36 Pulse Rate 92 H 02/10/22 02:36 Respiratory Rate 16 02/10/22 02:36 Blood Pressure 149/69 H 02/10/22 02:36 Pulse Oximetry 99 02/10/22 02:36 Resp Effort & Inspection: normal respiratory effort, cough and no respiratory distress Auscultation: wheezes Cardio Rate: regular rate Skin General: no rashes or lesions noted Neuro General: patient alert, patient awake and moves all extremities Extrem General: normal to inspection and capillary refill normal Psych Appearance: grossly normal and well kempt Course Orders Ordered: Discontinued Medications Albuterol (Albuterol 2.5 Mg/3 Ml Neb (Adult)) 2.5 mg INH NOW ONE Stop: 02/10/22 02:54 Last Admin: 02/10/22 03:12 Dose: 2.5 mg Documented by: BRAYDON Dexamethasone (Dexamethasone 4 Mg Tablet) 12 mg PO NOW ONE Stop: 02/10/22 02:54 Last Admin: 02/10/22 03:03 Dose: 12 mg Documented by: MARLA Vital Signs Vital signs: Vital Signs - 8 hr 02/10/22 02:36 02/10/22 03:13 Temperature 98.2 F Pulse Rate 92 H 98 H Respiratory Rate 16 12 Blood Pressure 149/69 H Pulse Oximetry 99 Medical Decision Making MDM Narrative Medical decision making narrative: Patient had resolution of wheezing after the albuterol. She has been coughing. Has obvious sinus congestion. I have low suspicion for pneumonia based on her presentation today secondary to lack of fevers and lack of productive cough and lack of coarse breath sounds. We did discuss the continued use of her Zyrtec. She was given a dose of steroids here in the ER. She has albuterol already at home. Has no indication for antibiotics. No indication for radiologic studies. Patient was instructed to contact her primary provider for follow-up. She was given return precautions. She expressed understanding and agreement. Discharge Plan Departure Patient Disposition: Home Clinical Impression: Asthma, Sinus congestion Instructions: DI for Asthma -- Adult Activity Restrictions/Additional Instructions: I recommend that you continue to take all of your medications as directed. You can try [id number] medicine such as guaifenesin or Mucinex. Contact your primary doctor for follow-up. Return to the emergency department for any new or worsening symptoms. Prescriptions: No Action clonazepam 0.5 mg tablet 1 mg PO BID PRN (Reason: anxiety) Qty: 60 2RF albuterol sulfate [ProAir HFA] 90 mcg/actuation HFA aerosol inhaler 1 puff INHALATION Q4H PRN (Reason: asthma) Qty: 8.5 0RF montelukast [Singulair] 10 mg tablet 10 mg PO DAILY Qty: 90 3RF cetirizine 10 mg tablet 10 mg PO DAILY Qty: 90 3RF lisinopril 10 mg tablet 10 mg PO DAILY 0RF Label Comments: Rx per Dr Lr according to [facility] Referrals: Dru Perez DO [Primary Care Provider] -
[2022-02-10 03:00] VITALS: PULSE 90; O2SAT 97
[2022-02-10] MEDS: dexAMETHasone 4 MG TABLET 12 MG PO (03:03)
[2022-02-10] MEDS: ALBUTEROL 2.5 MG/3 ML NEB (ADULT) INH (03:12)
[2022-02-10 03:13] VITALS: PULSE 98; RESP 12
[2022-02-10 03:30] VITALS: PULSE 102; O2SAT 96
[2022-02-10 04:04] VITALS: BP 142/85; PULSE 105; O2SAT 96
== END 2022-02-10 04:13 | disposition home or self-care (01) ==
PROVIDERS: Emergency Provider Emergency Medicine; PCP Family Medicine
DX: J45.909 Unspecified asthma, uncomplicated (principal); R09.81 Nasal congestion
CPT/HCPCS: 94640; 99283; J7613

== ENCOUNTER 2022-08-07 16:53 | Emergency (ER) | payer OTHER, SELFPAY ==
[2022-08-07 17:00] VITALS: BP 148/67; PULSE 79; RESP 20; TEMP 36.6; O2SAT 99
[2022-08-07 18:53] LABS: Add Manual Diff / Slide Review NO; Basophils Absolute Auto 100 /uL (0-100); Basophils Percent Auto 0.9 % (0-2); Eosinophils Absolute Auto 100 /uL (0-450); Eosinophils Percent Auto 0.9 % (2-4); Hematocrit 39.7 % (36-46); Hemoglobin 13.2 g/dL (12.0-16.0); Lymphocytes Absolute Auto 1300 /uL (1100-4500); Lymphocytes Percent Auto 14.4 % (25-40); Mean Corpuscular HGB Conc 33.3 % (30-36); Mean Corpuscular Hemoglobin 28.4 PG (26-34); Mean Corpuscular Volume 85.5 fL (80-100); Monocytes Absolute Auto 500 /uL (0-900); Monocytes Percent Auto 5.5 % (3-14); Neutrophils Absolute Auto 6900 /uL (1500-7000); Neutrophils Percent Auto 78.3 % (50-75); Platelet Count 334 X10^3/uL (150-400); Red Blood Cell Count 4.64 X10^6/uL (4.0-5.2); Red Cell Distribution Width 13.5 % (11.6-14.8); White Blood Cell Count 8.9 X10^3/uL (4.5-11.0)
[2022-08-07 18:54] LABS: Alanine Aminotransferase 32 IU/L (<35); Albumin 4.1 g/dL (3.5-5.0); Albumin Globulin Ratio 0.9 (1.0-2.8); Alkaline Phosphatase 127 U/L (38-126); Aspartate Aminotransferase 50 IU/L (14-36); BUN Creatinine Ratio 9.4 (6-22); Bilirubin Total 0.6 mg/dL (0.2-1.3); Blood Urea Nitrogen 11 mg/dL (7-17); Calcium 8.9 mg/dL (8.4-10.2); Carbon Dioxide 28 mmol/L (22-32); Chloride 103 mmol/L (98-107); Estimated Glomerular Filt Rate 58 mL/min (>60); Globulin 4.5 g/dL (1.7-4.1); Glucose 107 mg/dL (70-100); HEMOLYSIS < 15 (0-50); Lipase 126 U/L (23-300); Potassium 4.1 mmol/L (3.4-5.1); Sodium 141 mmol/L (137-145); Total Protein 8.6 g/dL (6.3-8.2)
--- NOTE | 2022-08-07 19:14 | ED.GIBLEED ---
HPI - GI Bleed General Chief complaint: GI Bleed Stated complaint: Blood in stool Time Seen by Provider: 08/07/22 18:42 Source: patient Mode of arrival: Ambulatory History of Present Illness HPI Narrative: 47F nonsmoker with noncontributory medical history presents with the chief complaint of painless bright red blood in her stool over the past day or 2. She states that she had recently gone back on iron and was a bit constipated for a few days and had been straining on the toilet. She denies any dark and tarry stool. She denies any vomiting and certainly no bloody vomit. She is not dizzy nor weak or lightheaded. She denies any chest pain or shortness of breath. Her description of the blood is minimal amount and along with stool. She denies vaginal bleeding or discharge. She has no dysuria, frequency or urgency. She takes no blood thinners. Related Data Home Medications Medication Instructions Recorded Confirmed lisinopril 10 mg tablet 10 mg PO DAILY 01/06/22 Previous Rx's Medication Instructions Recorded albuterol sulfate 90 mcg/actuation 1 puff inhalation Q4H PRN asthma 12/30/21 aerosol inhaler (ProAir HFA) #8.5 grams cetirizine 10 mg tablet 10 mg PO DAILY #90 tabs 12/30/21 clonazepam 0.5 mg tablet 1 mg PO BID PRN anxiety #60 tabs 12/30/21 montelukast 10 mg tablet 10 mg PO DAILY #90 tabs 12/30/21 (Singulair) pantoprazole 40 mg tablet,delayed 40 mg PO DAILY #30 tabs 08/07/22 release (Protonix) Allergies Allergy/AdvReac Type Severity Reaction Status Date / Time ciprofloxacin Allergy Mild GI UPSET Verified 11/21/21 08:00 codeine AdvReac Unknown STOMACH Verified 11/21/21 08:00 Review of Systems Review of Systems Narrative: GENERAL: Denies chills, fatigue, malaise, fever, sweats. HEENT: Denies sinus pain, ear pain, sore throat, difficulty swallowing, dizziness. RESPIRATORY: Denies dyspnea, cough, wheezing, hemoptysis, sputum. CARDIOVASCULAR: Denies chest pain, palpitations, orthopnea, edema, GASTROINTESTINAL: See HPI : Denies dysuria, frequency, incontinence, hematuria, urinary retention. MUSCULOSKELETAL: denies weakness, joint pain, or bony pain SKIN: Denies rash, skin lesions, or other NEUROLOGIC: Denies weakness, headache, numbness, change in speech, confusion, seizures, incoordination. PSYCHIATRIC: No concerning psychosocial issues. 12 point review of systems is negative except for those stated above Patient History Medical History Anxiety Elevated fasting blood sugar Fatty liver disease, nonalcoholic FHx: diabetes mellitus History of hypercalcemia Obesity, morbid, BMI 40.0-49.9 Premenopausal menorrhagia Seasonal allergies UTI (urinary tract infection) Surgical History History of bilateral tubal ligation History of cholecystectomy Family History Father Diabetes mellitus Hypertension Mother Cancer Hypertension Social History marital status: Smoking Status: Never smoker alcohol intake: current Smoking Status: Never smoker alcohol intake frequency: holidays/special occasions only Substance Use Type: marijuana Exam Narrative Exam Narrative: GENERAL: [47] year old patient appears stated age. Well-developed patient, in mild distress. HEAD: Atraumatic. Normocephalic. EYES: Pupils equal round and reactive. Extraocular motions intact. No scleral icterus. No injection or drainage. ENT: Nose without bleeding, purulent drainage. Throat without erythema, tonsillar hypertrophy or exudate. Airway patent. NECK: Trachea midline. Non tender CARDIOVASCULAR: Regular rate and rhythm without murmurs, gallops, or rubs. RESPIRATORY: Clear to auscultation. Breath sounds equal bilaterally. No wheezes, rales, or rhonchi. GASTROINTESTINAL: Abdomen soft, non-tender, nondistended. RECTAL: Performed with female nurse cushion mat maker and patient's permission, heme-positive, minimal bright red blood, no obvious hemorrhoid, fissure or other abnormality EXTREMITIES: No edema or joint tenderness. BACK: Nontender without deformity or crepitance. No flank tenderness. NEURO: AOx3. SKIN: No rash or erythema of visible areas Initial Vital Signs Initial Vital Signs: Vital Signs Temperature 97.8 F 08/07/22 17:00 Pulse Rate 79 08/07/22 17:00 Respiratory Rate 20 10/17/22 17:00 Blood Pressure 148/67 H 08/07/22 17:00 Pulse Oximetry 99 08/07/22 17:00 Oxygen Delivery Method 08/07/22 17:00 Course Orders Ordered: ED Orders 08/07/22 18:27 Complete Blood Count AUTO DIFF Stat Comprehensive Metabolic Panel Stat Lipase Stat Prothrombin Time INR Stat Type and Screen Stat Vital Signs Vital signs: Vital Signs - 8 hr 08/07/22 17:00 Temperature 97.8 F Pulse Rate 79 Respiratory Rate 20 Blood Pressure 148/67 H Pulse Oximetry 99 Oxygen Delivery Method Room Air MDM - GI Bleed Lab Data Result diagrams: 08/07/22 18:27 08/07/22 18:27 Labs: Lab Results 08/07/22 08/07/22 08/07/22 Range/Units 18:27 18:27 18:27 WBC 8.9 (4.5-11.0) X10^3/uL RBC 4.64 (4.0-5.2) X10^6/uL Hgb 13.2 (12.0-16.0) g/dL Hct 39.7 (36-46) % MCV 85.5 (80-100) fL MCH 28.4 (26-34) PG MCHC 33.3 (30-36) % RDW 13.5 (11.6-14.8) % Plt Count 334 (150-400) X10^3/uL Neut % (Auto) 78.3 H (50-75) % Lymph % (Auto) 14.4 L (25-40) % [place] % (Auto) 5.5 (3-14) % Eos % (Auto) 0.9 L (2-4) % Baso % (Auto) 0.9 (0-2) % Neut # (Auto) 6900 (0871-6785) /uL Lymph # (Auto) 1300 (8158-3792) /uL [place] # (Auto) 500 (0-900) /uL Eos # (Auto) 100 (0-450) /uL Baso # (Auto) 100 (0-100) /uL PT 12.4 (10.1-12.7) SECONDS INR 1.1 (0.9-1.3) Sodium 141 (137-145) mmol/L Potassium 4.1 (3.4-5.1) mmol/L Chloride 103 (98-107) mmol/L Carbon Dioxide 28 (22-32) mmol/L BUN 11 (7-17) mg/dL Creatinine 1.17 H (0.52-1.04) mg/dL Estimated GFR 58 L (>60) mL/min BUN/Creatinine Ratio 9.4 (6-22) Glucose 107 H (70-100) mg/dL Calcium 8.9 (8.4-10.2) mg/dL Total Bilirubin 0.6 (0.2-1.3) mg/dL AST 50 H (14-36) IU/L ALT 32 (<35) IU/L Alkaline Phosphatase 127 H (38-126) U/L Total Protein 8.6 H (6.3-8.2) g/dL Albumin 4.1 (3.5-5.0) g/dL Globulin 4.5 H (1.7-4.1) g/dL Albumin/Globulin Ratio 0.9 L (1.0-2.8) Lipase 126 (23-300) U/L MDM Narrative Medical decision making narrative: Patient has reassuring history and physical exam. Her vital signs are stable, H&H is stable, she takes no blood thinners and has minimal symptoms denying dizziness, weakness or lightheadedness. No fever or chills, no melena or hematemesis. Possibly internal hemorrhoid or diverticular bleed. No indication for hospitalization or emergent intervention. Discharge Plan Departure Patient Disposition: Home Clinical Impression: Bright red rectal bleeding Instructions: Gastrointestinal Bleeding Activity Restrictions/Additional Instructions: *You have been diagnosed with [bright red rectal bleeding] * As we discussed your history and physical exam as well as labs and imaging are very reassuring. There is no evidence of any severe diagnoses that would require a specific or immediate intervention. *What to do: *Please continue to take your regular medications as directed. [x ] New medication prescriptions sent to your pharmacy: [ [facility]} *Please follow up with your primary care provider in 2-3 days, call for an appointment. Let them know you were seen in the Emergency Department and that we ask that you be seen in follow up. We will electronically transmit a record of today's note if your PCP is in our system *Please consider a clear liquid diet for the next 24-48 hours and then slowly advance to regular as tolerated. Also, try to avoid alcohol, nicotine, caffeine, spicy, acidic or fatty foods as this may worsen your symptoms *Return to Emergency Department if you should have any new, worsening or concerning symptoms, such as [fever greater than 101 F, shaking chills, worsening pain, persistent vomiting or other bothersome symptoms] Prescriptions: New pantoprazole [Protonix] 40 mg tablet,delayed release (DR/EC) 40 mg PO DAILY Qty: 30 0RF No Action clonazepam 0.5 mg tablet 1 mg PO BID PRN (Reason: anxiety) Qty: 60 2RF albuterol sulfate [ProAir HFA] 90 mcg/actuation HFA aerosol inhaler 1 puff INHALATION Q4H PRN (Reason: asthma) Qty: 8.5 0RF montelukast [Singulair] 10 mg tablet 10 mg PO DAILY Qty: 90 3RF cetirizine 10 mg tablet 10 mg PO DAILY Qty: 90 3RF lisinopril 10 mg tablet 10 mg PO DAILY Label Comments: Rx per Dr Lr according to [facility] Referrals: Abisai Perez DO [Primary Care Provider] -
[2022-08-07 20:20] LABS: INR 1.1 (0.9-1.3); Prothrombin Time 12.4 SECONDS (10.1-12.7)
[2022-08-07 21:46] VITALS: BP 122/80; PULSE 75; RESP 16; O2SAT 99
== END 2022-08-07 21:47 | disposition home or self-care (01) ==
PROVIDERS: Emergency Medicine; Emergency Provider Emergency Medicine; PCP Family Medicine
DX: K62.5 Hemorrhage of anus and rectum (principal)
CPT/HCPCS: 36415; 80053; 83690; 85025; 85610; 86850; 86900; 86901; 99281; 99283

== ENCOUNTER 2022-08-10 16:24 | Emergency (ER) | payer OTHER, SELFPAY ==
[2022-08-10 16:50] VITALS: BP 160/73; PULSE 75; RESP 20; TEMP 36.3; O2SAT 97; BMI 45.3
[2022-08-10 19:30] VITALS: O2SAT 98
[2022-08-10 19:30] LABS: Add Manual Diff / Slide Review NO; BUN Creatinine Ratio 11.5 (6-22); Basophils Absolute Auto 100 /uL (0-100); Basophils Percent Auto 0.8 % (0-2); Blood Urea Nitrogen 11 mg/dL (7-17); Carbon Dioxide 25 mmol/L (22-32); Chloride 108 mmol/L (98-107); Eosinophils Absolute Auto 100 /uL (0-450); Eosinophils Percent Auto 0.7 % (2-4); Estimated Glomerular Filt Rate > 60 mL/min (>60); Glucose 98 mg/dL (70-100); HEMOLYSIS < 15 (0-50); Hematocrit 37.6 % (36-46); Hemoglobin 12.7 g/dL (12.0-16.0); Lymphocytes Absolute Auto 1800 /uL (1100-4500); Lymphocytes Percent Auto 20.4 % (25-40); Mean Corpuscular HGB Conc 33.8 % (30-36); Mean Corpuscular Hemoglobin 28.6 PG (26-34); Mean Corpuscular Volume 84.4 fL (80-100); Monocytes Absolute Auto 600 /uL (0-900); Monocytes Percent Auto 7.2 % (3-14); Neutrophils Absolute Auto 6400 /uL (1500-7000); Neutrophils Percent Auto 70.9 % (50-75); Platelet Count 341 X10^3/uL (150-400); Potassium 4.1 mmol/L (3.4-5.1); Red Blood Cell Count 4.45 X10^6/uL (4.0-5.2); Red Cell Distribution Width 13.5 % (11.6-14.8); Sodium 138 mmol/L (137-145)
[2022-08-10 19:31] VITALS: BP 149/73; PULSE 85; O2SAT 100
[2022-08-10 20:00] VITALS: BP 155/72; PULSE 84; O2SAT 98
--- NOTE | 2022-08-10 20:10 | ED_ITS ---
HPI - GI Bleed General Chief complaint: GI Bleed Stated complaint: blood in stool Time Seen by Provider: 08/10/22 18:15 Source: patient Mode of arrival: Ambulatory Limitations: no limitations History of Present Illness HPI Narrative: 47-year-old female who is here for rectal bleeding. She was seen here in the emergency department earlier this week for the same. Had labs performed. An exam performed. Was discharged home with instructions to follow-up. She has seen her primary doctor. Has a referral in for colonoscopy but this has not been scheduled yet. She has had normal bowel movements since then however today she had repeat blood in her stool. No fevers. No abdominal pain. She is not vomiting any blood. She is not on any anticoagulation. Blood in her urine. No vaginal bleeding. Related Data Home Medications Medication Instructions Recorded Confirmed lisinopril 10 mg tablet 10 mg PO DAILY 01/06/22 08/09/22 Previous Rx's Medication Instructions Recorded albuterol sulfate 90 mcg/actuation 1 puff inhalation Q4H PRN asthma 12/30/21 aerosol inhaler (ProAir HFA) #8.5 grams cetirizine 10 mg tablet 10 mg PO DAILY #90 tabs 12/30/21 clonazepam 0.5 mg tablet 1 mg PO BID PRN anxiety #60 tabs 12/30/21 montelukast 10 mg tablet 10 mg PO DAILY #90 tabs 12/30/21 (Singulair) pantoprazole 40 mg tablet,delayed 40 mg PO DAILY #30 tabs 08/07/22 release (Protonix) Allergies Allergy/AdvReac Type Severity Reaction Status Date / Time ciprofloxacin Allergy Mild GI UPSET Verified 11/21/21 08:00 codeine AdvReac Unknown STOMACH Verified 11/21/21 08:00 Review of Systems Review of Systems ROS Unobtainable: All systems reviewed & are unremarkable except as noted in HPI and below Patient History Medical History Anxiety Elevated fasting blood sugar Fatty liver disease, nonalcoholic FHx: diabetes mellitus History of hypercalcemia Obesity, morbid, BMI 40.0-49.9 Premenopausal menorrhagia Seasonal allergies UTI (urinary tract infection) Surgical History History of bilateral tubal ligation History of cholecystectomy Family History Father Diabetes mellitus Hypertension Mother Cancer Hypertension Social History marital status: Smoking Status: Never smoker alcohol intake: current Smoking Status: Never smoker alcohol intake frequency: holidays/special occasions only Substance Use Type: marijuana Exam Initial Vital Signs Initial Vital Signs: Vital Signs Temperature 97.3 F L 08/10/22 16:50 Pulse Rate 75 08/10/22 16:50 Respiratory Rate 20 08/10/22 16:50 Blood Pressure 160/73 H 08/10/22 16:50 Pulse Oximetry 97 08/10/22 16:50 Oxygen Delivery Method 08/10/22 16:50 Const General: cooperative, comfortable and No ill appearing HENMT Head: normal to inspection Resp Effort & Inspection: normal respiratory effort Cardio Rate: regular rate GI Inspection: normal to inspection and non-distended Palpation: soft, No firm and No tender Rectal Exam: visual inspection normal and No hemorrhoids Skin General: no rashes or lesions noted Neuro General: patient alert, patient awake and moves all extremities Extrem General: normal to inspection and capillary refill normal Psych Appearance: grossly normal and well kempt Course Orders Ordered: ED Orders 08/10/22 19:05 Basic Metabolic Panel Stat Complete Blood Count AUTO DIFF Stat Vital Signs Vital signs: Vital Signs - 8 hr 08/10/22 19:30 08/10/22 19:31 08/10/22 19:31 Pulse Rate 85 Blood Pressure 149/73 H Pulse Oximetry 98 100 Oxygen Delivery Method 08/10/22 20:00 08/10/22 20:00 Pulse Rate 84 Blood Pressure 155/72 H Pulse Oximetry 98 Oxygen Delivery Method Room Air MDM - GI Bleed Lab Data Attestation: I reviewed the patient's lab results. Result diagrams: 08/10/22 19:05 08/10/22 19:05 Labs: Lab Results 08/10/22 08/10/22 Range/Units 19:05 19:05 WBC 9.0 (4.5-11.0) X10^3/uL RBC 4.45 (4.0-5.2) X10^6/uL Hgb 12.7 (12.0-16.0) g/dL Hct 37.6 (36-46) % MCV 84.4 (80-100) fL MCH 28.6 (26-34) PG MCHC 33.8 (30-36) % RDW 13.5 (11.6-14.8) % Plt Count 341 (150-400) X10^3/uL Neut % (Auto) 70.9 (50-75) % Lymph % (Auto) 20.4 L (25-40) % [place] % (Auto) 7.2 (3-14) % Eos % (Auto) 0.7 L (2-4) % Baso % (Auto) 0.8 (0-2) % Neut # (Auto) 6400 (6069-3207) /uL Lymph # (Auto) 1800 (2074-7353) /uL [place] # (Auto) 600 (0-900) /uL Eos # (Auto) 100 (0-450) /uL Baso # (Auto) 100 (0-100) /uL Sodium 138 (137-145) mmol/L Potassium 4.1 (3.4-5.1) mmol/L Chloride 108 H (98-107) mmol/L Carbon Dioxide 25 (22-32) mmol/L BUN 11 (7-17) mg/dL Creatinine 0.96 (0.52-1.04) mg/dL Estimated GFR > 60 (>60) mL/min BUN/Creatinine Ratio 11.5 (6-22) Glucose 98 (70-100) mg/dL Calcium 9.0 (8.4-10.2) mg/dL MDM Narrative Medical decision making narrative: Patient is well-appearing. Has a benign exam. Vital signs unremarkable. H&H is unremarkable. No hemorrhoids noted. I do feel that she needs a colonoscopy but does not need admitted to the hospital nor to have this done emergently. Did discuss this with her. Last time she was here in the emergency department she was instructed to start taking a proton pump inhibitor however her primary doctor told her she did not have to. Provided reassurance to the patient. We did discuss return precautions. She expressed understanding and agreement. Discharge Plan Departure Patient Disposition: Home Clinical Impression: Bright red rectal bleeding Instructions: Gastrointestinal Bleeding Activity Restrictions/Additional Instructions: Recommend that you continue to take all of your medications as directed. You do need a colonoscopy and it appears that your primary doctors already put in a referral to have this performed. Return to the emergency department for any worsening symptoms like we discussed. Prescriptions: No Action clonazepam 0.5 mg tablet 1 mg PO BID PRN (Reason: anxiety) Qty: 60 2RF albuterol sulfate [ProAir HFA] 90 mcg/actuation HFA aerosol inhaler 1 puff INHALATION Q4H PRN (Reason: asthma) Qty: 8.5 0RF montelukast [Singulair] 10 mg tablet 10 mg PO DAILY Qty: 90 3RF cetirizine 10 mg tablet 10 mg PO DAILY Qty: 90 3RF lisinopril 10 mg tablet 10 mg PO DAILY Label Comments: Rx per Dr Lr according to [facility] pantoprazole [Protonix] 40 mg tablet,delayed release (/EC) 40 mg PO DAILY Qty: 30 0RF Referrals: Abisai Perez DO [Primary Care Provider] - Visit Report Forms: Patient Portal/API
== END 2022-08-10 20:20 | disposition home or self-care (01) ==
PROVIDERS: Emergency Provider Emergency Medicine; PCP Family Medicine
DX: K62.5 Hemorrhage of anus and rectum (principal)
CPT/HCPCS: 80048; 85025; 99281; 99283

== ENCOUNTER 2022-09-15 22:57 | Emergency (ER) | payer OTHER, SELFPAY ==
[2022-09-15 23:07] VITALS: BP 137/70; PULSE 87; RESP 20; TEMP 36.4; O2SAT 98
--- NOTE | 2022-09-16 01:16 | ED.EAR ---
HPI - Ear Problem General Chief complaint: Ear Stated complaint: Earache Time Seen by Provider: 09/16/22 00:57 Source: patient Mode of arrival: Ambulatory History of Present Illness HPI Narrative: Patient is a 47-year-old female who recently diagnosed with influenza she is on her last day of Tamiflu presents today with left ear pain ongoing for the last 3 days. She put some Vicks in there to see if it helped but still hurts. He denies any right ear pain no sore throat no chest pain shortness of breath. She feels like her flu symptoms of got better, but still complaining of left ear pain Related Data Home Medications Medication Instructions Recorded Confirmed lisinopril 10 mg tablet 10 mg PO DAILY 01/06/22 08/09/22 Previous Rx's Medication Instructions Recorded albuterol sulfate 90 mcg/actuation 1 puff inhalation Q4H PRN asthma 12/30/21 aerosol inhaler (ProAir HFA) #8.5 grams cetirizine 10 mg tablet 10 mg PO DAILY #90 tabs 12/30/21 clonazepam 0.5 mg tablet 1 mg PO BID PRN anxiety #60 tabs 12/30/21 montelukast 10 mg tablet 10 mg PO DAILY #90 tabs 12/30/21 (Singulair) pantoprazole 40 mg tablet,delayed 40 mg PO DAILY #30 tabs 08/07/22 release (Protonix) amoxicillin 500 mg capsule 1,000 mg PO TID 7 days #42 caps 09/16/22 Allergies Allergy/AdvReac Type Severity Reaction Status Date / Time ciprofloxacin Allergy Mild GI UPSET Verified 11/21/21 08:00 codeine AdvReac Unknown STOMACH Verified 11/21/21 08:00 Review of Systems Review of Systems Narrative: GENERAL: Denies chills, fatigue, malaise, fever, sweats, travel HEENT: See HPI RESPIRATORY: Denies dyspnea, cough, wheezing, hemoptysis, sputum. CARDIOVASCULAR: Denies chest pain, palpitations, orthopnea, edema GASTROINTESTINAL: Denies nausea, vomiting, abdominal pain, diarrhea, constipation, melena. : Denies dysuria, frequency, incontinence, hematuria, urinary retention, flank pain. MUSCULOSKELETAL: Denies weakness, joint pain, or bony pain SKIN: No rash, no erythema, no pruritus NEUROLOGIC: Denies weakness, dizziness, headache, numbness, change in speech, confusion PSYCHIATRIC: No concerning psychosocial issues. 12 point review of systems is negative except for those stated above and HPI Patient History Medical History Anxiety Elevated fasting blood sugar Fatty liver disease, nonalcoholic FHx: diabetes mellitus History of hypercalcemia Obesity, morbid, BMI 40.0-49.9 Premenopausal menorrhagia Seasonal allergies UTI (urinary tract infection) Surgical History History of bilateral tubal ligation History of cholecystectomy Family History Father Diabetes mellitus Hypertension Mother Cancer Hypertension Social History marital status: Smoking Status: Never smoker alcohol intake: current Smoking Status: Never smoker alcohol intake frequency: holidays/special occasions only Substance Use Type: marijuana Exam Initial Vital Signs Initial Vital Signs: Vital Signs Temperature 97.6 F 09/15/22 23:07 Pulse Rate 87 09/15/22 23:07 Respiratory Rate 20 09/15/22 23:07 Blood Pressure 137/70 09/15/22 23:07 Pulse Oximetry 98 09/15/22 23:07 Oxygen Delivery Method 09/15/22 23:07 GENERAL: Alert 47-year-old female and in no acute distress HEENT: Head atraumatic,EOMI, pupils reactive, face symmetric, moist mucous membranes EARS: Right ear is within normal limits tympanic membrane visualized and nonerythematous left ear normal external ear canal is erythematous bulging membrane appears very irritated CARDIOVASCULAR: Regular rate and rhythm without murmurs, rubs or gallops. RESPIRATORY: Breath sounds equal bilaterally, no wheezes rales or rhonchi. EXTREMITIES: Normal range of motion, no clubbing or edema. Neurovascularly intact NEUROLOGICAL: Alert and oriented x4. SKIN: Warm, dry, no laceration, no petechiae, no rashes or lesions. Course Orders Ordered: Discontinued Medications Amoxicillin (Amoxicillin 250 Mg Prepack) 1 bottle MISC SEEINSTR ONE Stop: 09/16/22 01:16 Last Admin: 09/16/22 01:51 Dose: 1 bottle Documented By: MADDIE Vital Signs Vital signs: Vital Signs - 8 hr 09/15/22 23:07 Temperature 97.6 F Pulse Rate 87 Respiratory Rate 20 Blood Pressure 137/70 Pulse Oximetry 98 Oxygen Delivery Method Room Air Discharge Plan Departure Patient Disposition: Home Clinical Impression: Otitis media Instructions: DI for Otitis Media (Middle Ear Infection)-Child Activity Restrictions/Additional Instructions: *You have been diagnosed with otitis media left side *What to do: Do not put Vicks in your ear. Do not put anything in your ear. *Continue to take medications as directed Amoxicillin 1000 mg 3 times a day for his 7 days *Follow up with your primary care provider in 2-3 days or call [phone] *Return to ER if you should have increasing pain drainage or any new, worsening or concerning symptoms Prescriptions: New amoxicillin 500 mg capsule 1,000 mg PO TID 7 Days Qty: 42 0RF No Action clonazepam 0.5 mg tablet 1 mg PO BID PRN (Reason: anxiety) Qty: 60 2RF albuterol sulfate [ProAir HFA] 90 mcg/actuation HFA aerosol inhaler 1 puff INHALATION Q4H PRN (Reason: asthma) Qty: 8.5 0RF montelukast [Singulair] 10 mg tablet 10 mg PO DAILY Qty: 90 3RF cetirizine 10 mg tablet 10 mg PO DAILY Qty: 90 3RF lisinopril 10 mg tablet 10 mg PO DAILY Label Comments: Rx per Dr Lr according to [facility] pantoprazole [Protonix] 40 mg tablet,delayed release (/EC) 40 mg PO DAILY Qty: 30 0RF Referrals: Abisai Perez DO [Primary Care Provider] - Visit Report Forms: Patient Portal/API
[2022-09-16] MEDS: AMOXICILLIN 250 MG PREPACK 1 BOTTLE MISC (01:51)
== END 2022-09-16 01:56 | disposition home or self-care (01) ==
PROVIDERS: Emergency Provider Emergency Medicine; PCP Family Medicine
DX: H66.92 Otitis media, unspecified, left ear (principal)
CPT/HCPCS: 99281

== ENCOUNTER 2023-05-24 05:43 | Emergency (ER) | payer OTHER, SELFPAY ==
[2023-05-24 05:54] VITALS: BP 141/70; PULSE 84; RESP 18; TEMP 36.3; O2SAT 100; BMI 44.6
--- NOTE | 2023-05-24 06:29 | DI.CT.S_ITS ---
PROCEDURE: CT ABDOMEN PELVIS W CON INDICATIONS: abdominal pain TECHNIQUE: After the administration of oral and IV contrast, axial sections were acquired from the lung bases to the pubic symphysis. Coronal and sagittal reformats were performed. For radiation dose reduction, the following was used: automated exposure control, adjustment of mA and/or kV according to patient size. COMPARISON: [facility], CT, KIDNEY/ URETER/BLADDER, 10/20/2013, 0:24. US, US PELVIC COMPLETE, 11/21/2021, 8:17. US, US PELVIC COMPLETE, 10/03/2021, 15:01. FINDINGS: Image quality: Excellent. Lung bases: Unremarkable. Heart: No significant findings. ABDOMEN: Liver: Unremarkable. Gallbladder: Surgically removed. Biliary ducts: Unremarkable. Pancreas: Unremarkable. Spleen: Unremarkable. Adrenal Glands: Unremarkable. Kidneys and Ureters: Unremarkable. Stomach and Bowel: Stomach, small bowel loops, and colon are normal in caliber. Mild diverticulosis without diverticulitis. Peritoneum: No abnormal intraperitoneal fluid. No free air. Ventral Wall: No hernia. Abdominal Nodes: No retroperitoneal or mesenteric adenopathy by size criteria. Vessels: Aorta and inferior vena cava are normal in size. PELVIS: Pelvic Organs: There is a large cystic mass in the right adnexa measuring 12.7 x 15.4 x 12.7 cm. Uterus and left ovary are unremarkable. No pathological free-fluid in cul-de-sac or adnexa. Bladder: Unremarkable. Pelvic Nodes: No enlarged lymph nodes. Miscellaneous: No inguinal hernias are seen. Bones: Unremarkable. IMPRESSION: 1. Large cystic mass in the right adnexa, most likely arising from the right ovary. Differential diagnoses are benign versus malignant ovarian neoplasm. Recommend gynecological follow-up. 2. Mild diverticulosis. No diverticulitis. Dictated by: Viral Arias M.D. on 05/24/2023 at 8:06 Approved by: Viral Arias M.D. on 05/24/2023 at 8:11
[2023-05-24] MEDS: HYDROMORPHONE 0.5 MG INJ IV (06:47)
[2023-05-24 06:51] LABS: Add Manual Diff / Slide Review NO; Basophils Absolute Auto 100 /uL (0-100); Basophils Percent Auto 0.8 % (0-2); Eosinophils Absolute Auto 0 /uL (0-450); Eosinophils Percent Auto 0.3 % (2-4); Hematocrit 36.2 % (36-46); Hemoglobin 12.3 g/dL (12.0-16.0); Lymphocytes Absolute Auto 2000 /uL (1100-4500); Lymphocytes Percent Auto 21.1 % (25-40); Mean Corpuscular Hemoglobin 28.5 PG (26-34); Mean Corpuscular Volume 83.9 fL (80-100); Monocytes Absolute Auto 800 /uL (0-900); Monocytes Percent Auto 8.6 % (3-14); Neutrophils Absolute Auto 6500 /uL (1500-7000); Neutrophils Percent Auto 69.2 % (50-75); Platelet Count 294 X10^3/uL (150-400); Red Blood Cell Count 4.31 X10^6/uL (4.0-5.2); Red Cell Distribution Width 13.1 % (11.6-14.8); White Blood Cell Count 9.3 X10^3/uL (4.5-11.0)
[2023-05-24] MEDS: SODIUM CHLORIDE 0.9% 1,000 ML 1000 ML IV (06:52)
[2023-05-24] MEDS: ONDANSETRON 4 MG/2 ML INJ IV ×2 (06:56→07:56)
[2023-05-24 07:01] LABS: Lipase 196 U/L (23-300)
[2023-05-24 07:03] LABS: Alanine Aminotransferase 25 IU/L (<35); Albumin 3.7 g/dL (3.5-5.0); Albumin Globulin Ratio 0.9 (1.0-2.8); Alkaline Phosphatase 168 U/L (38-126); Aspartate Aminotransferase 30 IU/L (14-36); BUN Creatinine Ratio 14.6 (6-22); Bilirubin Total 0.5 mg/dL (0.2-1.3); Blood Urea Nitrogen 15 mg/dL (7-17); Calcium 8.4 mg/dL (8.4-10.2); Carbon Dioxide 28 mmol/L (22-32); Chloride 105 mmol/L (98-107); Estimated Glomerular Filt Rate > 60 mL/min (>60); Globulin 4.2 g/dL (1.7-4.1); Glucose 119 mg/dL (70-100); HEMOLYSIS < 15 (0-50); Potassium 4.1 mmol/L (3.4-5.1); Sodium 137 mmol/L (137-145); Total Protein 7.9 g/dL (6.3-8.2)
[2023-05-24 07:45] LABS: RBC Urine 1-5/HPF (0-5/HPF)
[2023-05-24 07:46] LABS: Bacteria Urine Many (>30); Calcium Oxalate Crystals Urine Moderate; Squamous Epithelial Cell Urine >30 /HPF (0-5/HPF); WBC Urine 30-100/HPF (0-5/HPF)
--- NOTE | 2023-05-24 07:49 | ED.BACK ---
HPI - Back Pain/Injury General Chief Complaint: Back Pain/Injury Stated Complaint: lower back pain Time Seen by Provider: 05/24/23 06:28 Source: patient Mode of arrival: Ambulatory History of Present Illness HPI Narrative: Patient is a 48-year-old female who is here for evaluation of lower back discomfort and lower abdominal discomfort. She states the symptoms did start yesterday afternoon but got significantly worse last night. She is having some dysuria and some nausea but no vomiting. At the time of my evaluation she had received some pain medications so she states that all of her symptoms are now completely gone. No change in bowel habits. No fevers. No chest pain or shortness of breath. Related Data Home Medications Medication Instructions Recorded Confirmed lisinopril 10 mg tablet 10 mg PO DAILY 01/06/22 08/09/22 Previous Rx's Medication Instructions Recorded albuterol sulfate 90 mcg/actuation 1 puff inhalation Q4H PRN asthma 12/30/21 aerosol inhaler (ProAir HFA) #8.5 grams cetirizine 10 mg tablet 10 mg PO DAILY #90 tabs 12/30/21 clonazepam 0.5 mg tablet 1 mg PO BID PRN anxiety #60 tabs 12/30/21 montelukast 10 mg tablet 10 mg PO DAILY #90 tabs 12/30/21 (Singulair) pantoprazole 40 mg tablet,delayed 40 mg PO DAILY #30 tabs 08/07/22 release (Protonix) cephalexin 500 mg capsule 500 mg PO BID 5 days #10 caps 05/24/23 Allergies Allergy/AdvReac Type Severity Reaction Status Date / Time ciprofloxacin Allergy Mild GI UPSET Verified 11/21/21 08:00 codeine AdvReac Unknown STOMACH Verified 11/21/21 08:00 Review of Systems Constitutional Constitutional: Reports system reviewed and no additional complaints, except as documented Cardiovascular Cardiovascular: Reports system reviewed and no additional complaints, except as documented Respiratory Respiratory: Reports system reviewed and no additional complaints, except as documented Gastrointestinal Gastrointestinal: Reports system reviewed and no additional complaints, except as documented Genitourinary Genitourinary: Reports system reviewed and no additional complaints, except as documented Musculoskeletal Musculoskeletal: Reports system reviewed and no additional complaints, except as documented Integumentary/Breasts Skin/Breast: Reports system reviewed and no additional complaints, except as documented Patient History Medical History Anxiety Elevated fasting blood sugar Fatty liver disease, nonalcoholic FHx: diabetes mellitus History of hypercalcemia Obesity, morbid, BMI 40.0-49.9 Premenopausal menorrhagia Seasonal allergies UTI (urinary tract infection) Surgical History History of bilateral tubal ligation History of cholecystectomy Family History Father Diabetes mellitus Hypertension Mother Cancer Hypertension Social History marital status: Smoking Status: Never smoker alcohol intake: current Smoking Status: Never smoker alcohol intake frequency: holidays/special occasions only Substance Use Type: marijuana Exam Initial Vital Signs Initial Vital Signs: Vital Signs Temperature 97.4 F L 05/24/23 05:54 Pulse Rate 84 05/24/23 05:54 Respiratory Rate 18 05/24/23 05:54 Blood Pressure 141/70 H 05/24/23 05:54 Pulse Oximetry 100 05/24/23 05:54 Oxygen Delivery Method Room Air 05/24/23 05:54 Resp Effort & Inspection: normal respiratory effort Cardio Rate: regular rate GI Inspection: normal to inspection and non-distended Palpation: No tender Back/Spine/Pelvis Back: normal to inspection Neuro General: patient alert, patient awake and moves all extremities Course Orders Ordered: ED Orders 05/24/23 06:29 CT abdomen pelvis w con Stat 05/24/23 06:40 Complete Blood Count AUTO DIFF Stat Comprehensive Metabolic Panel Stat Lipase Stat Test Serum,Qual Stat 05/24/23 07:21 Urine Microscopic Stat 05/24/23 08:23 pelvic limited Stat Hydromorphone HCl (Hydromorphone 0.5 Mg Inj) 0.5 mg IV Q15MIN PRN PRN Reason: Pain, Last Admin: 05/24/23 06:47 Dose: 0.5 mg Documented By: SB Discontinued Medications Cephalexin HCl (Cephalexin 250 Mg Capsule) 500 mg PO NOW ONE Stop: 05/24/23 09:23 Last Admin: 05/24/23 09:44 Dose: 500 mg Sodium Chloride (Normal Saline 0.9%) 1,000 mls @ 1,000 mls/hr IV BOLUS ONE Stop: 05/24/23 07:27 Last Admin: 05/24/23 06:52 Dose: 1,000 mls/hr Documented By: WALDO Ondansetron HCl (Ondansetron 4 Mg/2 Ml Inj) 4 mg IV NOW ONE Stop: 05/24/23 06:56 Last Admin: 05/24/23 06:56 Dose: 4 mg Documented By: WALDO Ondansetron HCl (Ondansetron 4 Mg/2 Ml Inj) 4 mg IV NOW ONE Stop: 05/24/23 07:51 Last Admin: 05/24/23 07:56 Dose: 4 mg Documented By: DEMARCUS Vital Signs Vital signs: Vital Signs - 8 hr 05/24/23 05:54 05/24/23 08:45 Temperature 97.4 F L Pulse Rate 84 79 Respiratory Rate 18 12 Blood Pressure 141/70 H 120/64 Pulse Oximetry 100 99 Oxygen Delivery Method Room Air Room Air MDM - Back Pain/Injury Lab Data Attestation: I reviewed the patient's lab results. 05/24/23 06:40 05/24/23 06:40 Labs: Lab Results 05/24/23 05/24/23 05/24/23 Range/Units 06:40 06:40 06:40 WBC 9.3 (4.5-11.0) X10^3/uL RBC 4.31 (4.0-5.2) X10^6/uL Hgb 12.3 (12.0-16.0) g/dL Hct 36.2 (36-46) % MCV 83.9 (80-100) fL MCH 28.5 (26-34) PG MCHC 34.0 (30-36) % RDW 13.1 (11.6-14.8) % Plt Count 294 (150-400) X10^3/uL Neut % (Auto) 69.2 (50-75) % Lymph % (Auto) 21.1 L (25-40) % [place] % (Auto) 8.6 (3-14) % Eos % (Auto) 0.3 L (2-4) % Baso % (Auto) 0.8 (0-2) % Neut # (Auto) 6500 (0362-9472) /uL Lymph # (Auto) 2000 (8351-7970) /uL [place] # (Auto) 800 (0-900) /uL Eos # (Auto) 0 (0-450) /uL Baso # (Auto) 100 (0-100) /uL Sodium 137 (137-145) mmol/L Potassium 4.1 (3.4-5.1) mmol/L Chloride 105 (98-107) mmol/L Carbon Dioxide 28 (22-32) mmol/L BUN 15 (7-17) mg/dL Creatinine 1.03 (0.52-1.04) mg/dL Estimated GFR > 60 (>60) mL/min BUN/Creatinine Ratio 14.6 (6-22) Glucose 119 H (70-100) mg/dL Calcium 8.4 (8.4-10.2) mg/dL Total Bilirubin 0.5 (0.2-1.3) mg/dL AST 30 (14-36) IU/L ALT 25 (<35) IU/L Alkaline Phosphatase 168 H (38-126) U/L Total Protein 7.9 (6.3-8.2) g/dL Albumin 3.7 (3.5-5.0) g/dL Globulin 4.2 H (1.7-4.1) g/dL Albumin/Globulin Ratio 0.9 L (1.0-2.8) Lipase 196 (23-300) U/L Serum , Qual (Negative) Urine RBC (0-5/HPF) Urine WBC (0-5/HPF) Ur Squamous Epith Cells (0-5/HPF) Calcium Oxalate Crystal Urine Bacteria (None) 05/24/23 05/24/23 Range/Units 06:40 07:21 WBC (4.5-11.0) X10^3/uL RBC (4.0-5.2) X10^6/uL Hgb (12.0-16.0) g/dL Hct (36-46) % MCV (80-100) fL MCH (26-34) PG MCHC (30-36) % RDW (11.6-14.8) % Plt Count (150-400) X10^3/uL Neut % (Auto) (50-75) % Lymph % (Auto) (25-40) % [place] % (Auto) (3-14) % Eos % (Auto) (2-4) % Baso % (Auto) (0-2) % Neut # (Auto) (4845-4137) /uL Lymph # (Auto) (7408-4990) /uL [place] # (Auto) (0-900) /uL Eos # (Auto) (0-450) /uL Baso # (Auto) (0-100) /uL Sodium (137-145) mmol/L Potassium (3.4-5.1) mmol/L Chloride (98-107) mmol/L Carbon Dioxide (22-32) mmol/L BUN (7-17) mg/dL Creatinine (0.52-1.04) mg/dL Estimated GFR (>60) mL/min BUN/Creatinine Ratio (6-22) Glucose (70-100) mg/dL Calcium (8.4-10.2) mg/dL Total Bilirubin (0.2-1.3) mg/dL AST (14-36) IU/L ALT (<35) IU/L Alkaline Phosphatase (38-126) U/L Total Protein (6.3-8.2) g/dL Albumin (3.5-5.0) g/dL Globulin (1.7-4.1) g/dL Albumin/Globulin Ratio (1.0-2.8) Lipase (23-300) U/L Serum , Qual Negative (Negative) Urine RBC 1-5/hpf (0-5/HPF) Urine WBC 30-100/hpf H (0-5/HPF) Ur Squamous Epith Cells >30 /hpf H D (0-5/HPF) Calcium Oxalate Crystal Moderate H Urine Bacteria Many (>30) H (None) Urine Dip Bedside Urine Glucose Negative Bedside Urine Bilirubin + 1 Bedside Urine Ketone - Negative Urine Specific Cisco 1.030 Bedside Urine Occult Blood - Negative Bedside Urine pH 5.5 Bedside Urine Protein +/- 15 Bedside Urine Urobilinogen - Negative Bedside Urine Nitrite - Negative Bedside Urine Leukocytes + [address] scan - abdomen/pelvis: Radiologist's Impression: PROCEDURE:? CT ABDOMEN PELVIS W CON ? INDICATIONS:? abdominal pain ? TECHNIQUE:? After the administration of oral and IV contrast, axial sections were acquired from the lung bases to the pubic symphysis.? Coronal and sagittal reformats were performed.? For radiation dose reduction, the following was used:? automated exposure control, adjustment of mA and/or kV according to patient size. ? COMPARISON:? [facility], CT, KIDNEY/ URETER/BLADDER, 10/20/2013, 0:24.? US, US PELVIC COMPLETE, 11/21/2021, 8:17.? US, US PELVIC COMPLETE, 10/03/2021, 15:01. ? FINDINGS:? Image quality:? Excellent.? ? Lung bases:? Unremarkable.? ? Heart:? No significant findings. ? ? ABDOMEN: Liver:? Unremarkable.? ? Gallbladder:? Surgically removed.? ? Biliary ducts:? Unremarkable.? ? Pancreas:? Unremarkable.? ? Spleen:? Unremarkable.? ? Adrenal Glands:? Unremarkable.? ? Kidneys and Ureters:? Unremarkable.? ? ? Stomach and Bowel:? Stomach, small bowel loops, and colon are normal in caliber.? Mild diverticulosis without diverticulitis. Peritoneum:? No abnormal intraperitoneal fluid.? No free air.? ? Ventral Wall: ? No hernia.? Abdominal Nodes:? No retroperitoneal or mesenteric adenopathy by size criteria.? Vessels:? Aorta and inferior vena cava are normal in size.? ? PELVIS: Pelvic Organs:? There is a large cystic mass in the right adnexa measuring 12.7 x 15.4 x 12.7 cm.? Uterus and left ovary are unremarkable.? No pathological free-fluid in cul-de-sac or adnexa. ? Bladder:? Unremarkable.? ? Pelvic Nodes: No enlarged lymph nodes.? Miscellaneous: No inguinal hernias are seen. ? ? ? Bones:? Unremarkable.? IMPRESSION:? ? 1. Large cystic mass in the right adnexa, most likely arising from the right ovary.? Differential diagnoses are benign versus malignant ovarian neoplasm.? Recommend gynecological follow-up. ? 2. Mild diverticulosis.? No diverticulitis US - PICKER/PULLER: Radiologist's Impression: PROCEDURE:? US PELVIC LIMITED ? INDICATIONS:? R ADNEXAL MASS SEEN ON CT ? TECHNIQUE:? Real-time transabdominal scanning was performed of the pelvic organs, with image documentation.? Patient refused transvaginal scan. ? COMPARISON:? [facility], CT, KIDNEY/ URETER/BLADDER, 10/20/2013, 0:24.? [facility], US, US PELVIC COMPLETE, 10/03/2021, 15:01.? [facility], US, US PELVIC COMPLETE, 11/21/2021, 8:17.? [facility], CT, CT ABDOMEN PELVIS W CON, 05/24/2023, 7:33. ? FINDINGS:? ? Uterus:? Uterus is anteverted and normal in size at 8.8 x 3.7 x 6.5 cm. The myometrium is homogeneous.? ?The endometrium measures 7 mm combined thickness.? ? Ovaries:? Clearly delineated right ovarian tissue is not visualized.? Within the expected location there is a large focus of decreased echogenicity measuring 13.2 x 12.8 x 12.8 cm. It has increased in size compared to 7.8 cm in 2021, 7.3 cm in 2020 and 3 cm in 2012. The left ovary is not visualized. ? Other:? No pathologic free abdominal or pelvic fluid. ? ? IMPRESSION:? ? Enlarging cystic focus in the region of the right ovary without clearly delineated ovarian tissue.? The latter is likely secondary to size of mass, as well as limited visualization on trans-abdominal scanning only.? Given lack of visualized ovarian tissue, torsion cannot be excluded. MDM Narrative Medical decision making narrative: Patient does have a urinalysis today that is most consistent with a urinary tract infection and she is having some dysuria. She was given 1st dose of antibiotics here in the ER and she tolerated this. Urine culture is pending and she is aware of this and will contact her if we need to change any antibiotics. She also has a very large right-sided ovarian cyst. She knows that she is had a cyst in this area but she thinks it is now bigger. She is had discussions with the putty mixer doctor in the past about potentially having this removed but at that time they have decided not to pursue surgery. I advised that she make a follow-up appointment with her putty mixer doctor. Patient is safe for home discharge. She was given return precautions. She expressed understanding and agreement. Discharge Plan Departure Patient Disposition: Home Clinical Impression: Ovarian cyst Instructions: Urinary Tract Infection, DI for Ovarian Cyst Activity Restrictions/Additional Instructions: Antibiotics were sent to the pharmacy of your choice. Please start taking them as directed. Also recommend that you make a follow-up appointment with a putty mixer doctor to talk about the large right-sided ovarian cyst that was seen on the CT scan in the ultrasound today. Return to the emergency department for new or worsening symptoms. Prescriptions: New cephalexin 500 mg capsule 500 mg PO BID 5 Days Qty: 10 0RF No Action clonazepam 0.5 mg tablet 1 mg PO BID PRN (Reason: anxiety) Qty: 60 2RF albuterol sulfate [ProAir HFA] 90 mcg/actuation HFA aerosol inhaler 1 puff INHALATION Q4H PRN (Reason: asthma) Qty: 8.5 0RF montelukast [Singulair] 10 mg tablet 10 mg PO DAILY Qty: 90 3RF cetirizine 10 mg tablet 10 mg PO DAILY Qty: 90 3RF lisinopril 10 mg tablet 10 mg PO DAILY Patient Comments: Rx per Dr Lr according to [facility] pantoprazole [Protonix] 40 mg tablet,delayed release (DR/EC) 40 mg PO DAILY Qty: 30 0RF Referrals: Teresa Mono MD [Physician] - Abisai Perez DO [Primary Care Provider] - Stand Alone Forms: Patient Portal/API
[2023-05-24 07:53] VITALS: BMI 44.6
--- NOTE | 2023-05-24 08:07 | PC.NURSE ---
patient stated that her pain was controlled with the last dose of pain medication
--- NOTE | 2023-05-24 08:23 | DI.US.S_ITS ---
PROCEDURE: US PELVIC LIMITED INDICATIONS: R ADNEXAL MASS SEEN ON CT TECHNIQUE: Real-time transabdominal scanning was performed of the pelvic organs, with image documentation. Patient refused transvaginal scan. COMPARISON: [facility], CT, KIDNEY/ URETER/BLADDER, 10/20/2013, 0:24. [facility], US, US PELVIC COMPLETE, 10/03/2021, 15:01. [facility], US, US PELVIC COMPLETE, 11/21/2021, 8:17. [facility], CT, CT ABDOMEN PELVIS W CON, 05/24/2023, 7:33. FINDINGS: Uterus: Uterus is anteverted and normal in size at 8.8 x 3.7 x 6.5 cm. The myometrium is homogeneous. The endometrium measures 7 mm combined thickness. Ovaries: Clearly delineated right ovarian tissue is not visualized. Within the expected location there is a large focus of decreased echogenicity measuring 13.2 x 12.8 x 12.8 cm. It has increased in size compared to 7.8 cm in 2021, 7.3 cm in 2020 and 3 cm in 2012. The left ovary is not visualized. Other: No pathologic free abdominal or pelvic fluid. IMPRESSION: Enlarging cystic focus in the region of the right ovary without clearly delineated ovarian tissue. The latter is likely secondary to size of mass, as well as limited visualization on trans-abdominal scanning only. Given lack of visualized ovarian tissue, torsion cannot be excluded. We strive to produce accurate, complete, and clear reports of imaging services. To assist us in improving patient care, this report was composed using standard report templates and voice recognition software. Therefore, it may contain abnormal punctuation, insertions and/or omissions. Occasional wrong-word or sound-alike substitutions may occur. Though we review the report and make efforts to correct it, we do recommend that the report be read carefully in proper context to recognize any text inaccuracies. Dictated by: Jing Avalos M.D. on 05/24/2023 at 9:04 Approved by: Jing Avalos M.D. on 05/24/2023 at 9:22
[2023-05-24 08:45] VITALS: BP 120/64; PULSE 79; RESP 12; O2SAT 99
[2023-05-24 09:09] LABS: Pregnancy Test Serum,Qual Negative (Negative)
[2023-05-24] MEDS: cephALEXin 250 MG CAPSULE 500 MG PO (09:44)
[2023-05-24 10:08] VITALS: BP 113/58; PULSE 72; RESP 14; TEMP 36.7; O2SAT 99
[2023-05-24 10:09] VITALS: BP 113/58; PULSE 76; O2SAT 98
== END 2023-05-24 10:10 | disposition home or self-care (01) ==
PROVIDERS: Emergency Medicine; Emergency Provider Emergency Medicine; PCP Family Medicine
DX: N83.201 Unspecified ovarian cyst, right side (principal); N39.0 Urinary tract infection, site not specified
CPT/HCPCS: 74177; 76857; 80053; 81003; 81015; 83690; 84703; 85025; 96361; 96374; 96375; 96376; 99284; J1170; J2405; Q9967

== ENCOUNTER 2023-06-20 01:49 | Observation (INO) | payer OTHER, SELFPAY ==
[2023-06-20] VITALS (29 sets, daily range): BP systolic 93–158; BP diastolic 44–88; PULSE 70–96; RESP 11–20; TEMP 35.9–36.7; O2SAT 94–99; BMI 44.9; BMI 46.8; BMI 45.3
--- NOTE | 2023-06-20 | PATH_ITS ---
[facility] Accession Number: [id number] No. of containers..01 Tissue . 01 Material submitted: . ovary - RIGHT OVARY AND CYST . 01 Diagnosis: Right Ovary, Oophorectomy: Benign serous cystadenofibroma. - Background postmenopausal changes of ovary and rare possible focus of endometriosis in hilum. - Attached benign fallopian tube fimbria. MRV 06/28/2023 1822 Local . 01 Comment: The lining of the cyst is primarily a single layer of tubal-type epithelium. Focally, the epithelium appears pseudostratified or possibly tangentially oriented; however, there is no significant cytologic atypia. Sagger Filler slides of this case are also reviewed by Dr. Saadia Jimenez, who concurs with the given interpretation. . 01 Electronically signed: . Mikki Cope MD, Pathologist NPI- [id number] . 01 Gross description: . The specimen is received in formalin labeled with the patient's name, , and right ovary and cyst consists of a large disrupted cystic structure measuring 8.3 x 8.3 x 2.1 cm with a wrinkled, presumed external surface with possible attached fimbriae. The external surface is inked blue. The presumed internal surface is chakraborty and wrinkled with an area of pinpoint hemorrhage measuring 2.3 x 1.4 cm and a small flat nodule measuring 1.0 x 0.7 x 0.3 cm. No excrescences, additional lesions, or areas of thickening are identified. The lord average 0.2 cm thick. Note: Sectioning the cyst reveals the presumed internal and external surfaces to be diffusely . . Also within the container is chakraborty, cerebriform detached ovary weighing 11 grams and measuring 4.6 x 3.2 x 1.8 cm, and the external surface is inked green. Sectioning reveals an unremarkable physiologic cut surface with no lesions identified. Sagger Filler sections are submitted as follows: A1: Cyst wall nodule. A2-A3: Entire hemorrhagic cyst area. A4: Additional cyst wall. A5-A6: Sagger Filler ovary. ([id number]) /MRV 06/21/2023 1741 Local . 01 Pathologist provided ICD-10: D27.9 . 01 CPT . 673188 Specimen Comment: A courtesy copy of this report has been sent to [phone] Performed at: 01 [facility] [address] [place] [address] [address], [place], [place] [id number] MD Denezl Elise MD Phone: [phone]
[2023-06-20 02:36] LABS: Add Manual Diff / Slide Review NO; Basophils Absolute Auto 100 /uL (0-100); Basophils Percent Auto 0.7 % (0-2); Eosinophils Absolute Auto 100 /uL (0-450); Eosinophils Percent Auto 0.8 % (2-4); Hematocrit 34.9 % (36-46); Hemoglobin 11.9 g/dL (12.0-16.0); Lymphocytes Absolute Auto 1800 /uL (1100-4500); Lymphocytes Percent Auto 19.8 % (25-40); Mean Corpuscular Hemoglobin 28.3 PG (26-34); Mean Corpuscular Volume 83.2 fL (80-100); Monocytes Absolute Auto 700 /uL (0-900); Monocytes Percent Auto 7.9 % (3-14); Neutrophils Absolute Auto 6400 /uL (1500-7000); Neutrophils Percent Auto 70.8 % (50-75); Platelet Count 279 X10^3/uL (150-400); Red Cell Distribution Width 13.7 % (11.6-14.8); White Blood Cell Count 9.1 X10^3/uL (4.5-11.0)
[2023-06-20 02:44] LABS: Alanine Aminotransferase 23 IU/L (<35); Albumin 3.7 g/dL (3.5-5.0); Albumin Globulin Ratio 0.9 (1.0-2.8); Alkaline Phosphatase 122 U/L (38-126); Aspartate Aminotransferase 31 IU/L (14-36); BUN Creatinine Ratio 9.2 (6-22); Bilirubin Total 0.4 mg/dL (0.2-1.3); Blood Urea Nitrogen 9 mg/dL (7-17); Calcium 8.2 mg/dL (8.4-10.2); Carbon Dioxide 23 mmol/L (22-32); Chloride 111 mmol/L (98-107); Estimated Glomerular Filt Rate > 60 mL/min (>60); Globulin 3.9 g/dL (1.7-4.1); Glucose 99 mg/dL (70-100); HEMOLYSIS < 15 (0-50); Lipase 197 U/L (23-300); Potassium 3.6 mmol/L (3.4-5.1); Sodium 140 mmol/L (137-145); Total Protein 7.6 g/dL (6.3-8.2)
--- NOTE | 2023-06-20 02:52 | DI.US.S_ITS ---
PROCEDURE: US PELVIC COMPLETE INDICATIONS: KNOWN RIGHT OVARIAN CYST; PAIN TECHNIQUE: Real-time scanning was performed of the pelvic organs, with image documentation. Patient refused endovaginal scanning. COMPARISON: [facility], , US PELVIC COMPLETE, 11/21/2021, 8:17. FINDINGS: Uterus: Uterus is anteverted and normal in size at 8.7 x 5.1 x 5.8 cm. The myometrium is grossly homogeneous. The endometrium is poorly visualized. No gross endometrial mass or fluid is noted. Ovaries: Bilateral ovaries are not well seen. Patient's known 13.2 x 12.8 x 12.8 cm simple appearing cyst in right adnexa now measures 15.6 x 13 x 13.2 cm in size. No gross solid appearing adnexal lesion is seen. Other: No pathologic free abdominal or pelvic fluid. IMPRESSION: 1. Limited study. Patient refused transvaginal portion of the exam. No gross abnormality is seen in visualized portion of uterus and endometrium. Ovaries are also poorly visualized. 2. Interval increase in size of patient's known right adnexal cyst as above. No definite solid adnexal mass is noted. Bilateral We strive to produce accurate, complete, and clear reports of imaging services. To assist us in improving patient care, this report was composed using standard report templates and voice recognition software. Therefore, it may contain abnormal punctuation, insertions and/or omissions. Occasional wrong-word or sound-alike substitutions may occur. Though we review the report and make efforts to correct it, we do recommend that the report be read carefully in proper context to recognize any text inaccuracies. Dictated by: Gal Pelletier M.D. on 06/20/2023 at 8:13 Approved by: Gal Pelletier M.D. on 06/20/2023 at 8:18
--- NOTE | 2023-06-20 02:52 | ED.ABDPAIN ---
HPI - Abdominal Pain General Chief Complaint: Abdominal Pain Stated Complaint: ABD PAIN Time Seen by Provider: 06/20/23 02:19 Source: patient Mode of arrival: Ambulatory History of Present Illness HPI narrative: Patient is a 48-year-old female history of obesity and known large right ovarian cyst presents today with lower abdominal pain. She was here and evaluated May 24 2334 abdominal pain. She was found to have UTI and a large ovarian right cystic mass measuring 13 x 12 cm. 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 Today she started having lower abdominal pain again. No fever or chills. Minimal back pain mild nausea but no vomiting. No other symptoms. Related Data Home Medications Medication Instructions Recorded Confirmed lisinopril 10 mg tablet 10 mg PO DAILY 01/06/22 08/09/22 Previous Rx's Medication Instructions Recorded albuterol sulfate 90 mcg/actuation 1 puff inhalation Q4H PRN asthma 12/30/21 aerosol inhaler (ProAir HFA) #8.5 grams cetirizine 10 mg tablet 10 mg PO DAILY #90 tabs 12/30/21 clonazepam 0.5 mg tablet 1 mg PO BID PRN anxiety #60 tabs 12/30/21 montelukast 10 mg tablet 10 mg PO DAILY #90 tabs 12/30/21 (Singulair) pantoprazole 40 mg tablet,delayed 40 mg PO DAILY #30 tabs 08/07/22 release (Protonix) Allergies Allergy/AdvReac Type Severity Reaction Status Date / Time ciprofloxacin Allergy Mild GI UPSET Verified 11/21/21 08:00 codeine AdvReac Unknown STOMACH Verified 11/21/21 08:00 Review of Systems Review of Systems ROS Unobtainable: All systems reviewed & are unremarkable except as noted in HPI and below Patient History Medical History Anxiety Elevated fasting blood sugar Fatty liver disease, nonalcoholic FHx: diabetes mellitus History of hypercalcemia Obesity, morbid, BMI 40.0-49.9 Premenopausal menorrhagia Seasonal allergies UTI (urinary tract infection) Surgical History History of bilateral tubal ligation History of cholecystectomy Family History Father Diabetes mellitus Hypertension Mother Cancer Hypertension Social History marital status: Smoking Status: Never smoker alcohol intake: current Smoking Status: Never smoker alcohol intake frequency: holidays/special occasions only Substance Use Type: does not use Exam Initial Vital Signs Initial Vital Signs: Vital Signs Temperature 97.9 F 06/20/23 01:58 Pulse Rate 88 06/20/23 01:58 Respiratory Rate 20 06/20/23 01:58 Blood Pressure 147/69 H 06/20/23 01:58 Pulse Oximetry 97 06/20/23 01:58 Oxygen Delivery Method Room Air 06/20/23 01:58 GENERAL: Alert 40-year-old female and in no acute distress. HEENT: Head atraumatic,EOMI, pupils reactive, face symmetric, moist mucous membranes CARDIOVASCULAR: Regular rate and rhythm without murmurs, rubs or gallops. RESPIRATORY: Breath sounds equal bilaterally, no wheezes rales or rhonchi. ABDOMEN: Soft, lower suprapubic abdominal tenderness no guarding or rebound no periumbilical pain : No CVA tenderness EXTREMITIES: Normal range of motion, no clubbing or edema. Neurovascularly intact NEUROLOGICAL: Alert and oriented x4. SKIN: Warm, dry, no laceration, no petechiae, no rashes or lesions. Course Orders Ordered: ED Orders 06/20/23 02:20 Complete Blood Count AUTO DIFF Stat Comprehensive Metabolic Panel Stat Lipase Stat 06/20/23 02:52 US pelvic complete Stat Hydromorphone HCl (Hydromorphone 0.5 Mg Inj) 0.5 mg IV Q3H PRN PRN Reason: Pain, Severe (7-10) Sodium Chloride (Normal Saline 0.9%) 1,000 mls @ 125 mls/hr IV CONT ROULA Ondansetron HCl (Ondansetron 4 Mg/2 Ml Inj) 4 mg IV Q4HR PRN PRN Reason: Nausea And Vomiting Discontinued Medications Hydromorphone HCl (Hydromorphone 0.5 Mg Inj) 0.5 mg IV NOW ONE Stop: 06/20/23 05:12 Last Admin: 06/20/23 05:19 Dose: 0.5 mg Ketorolac Tromethamine (Ketorolac 30 Mg/Ml Vial) 15 mg IV NOW ONE Stop: 06/20/23 02:53 Last Admin: 06/20/23 03:02 Dose: 15 mg Documented By: WALDO Ondansetron HCl (Ondansetron 4 Mg Odt) 4 mg PO NOW PRN PRN Reason: Nausea And Vomiting Ondansetron HCl (Ondansetron 4 Mg/2 Ml Inj) 4 mg IV NOW PRN PRN Reason: Nausea And Vomiting Last Admin: 06/20/23 03:02 Dose: 4 mg Documented By: WALDO Vital Signs Vital signs: Vital Signs - 8 hr 06/20/23 01:58 06/20/23 02:21 06/20/23 02:22 Temperature 97.9 F Pulse Rate 88 Respiratory Rate 20 Blood Pressure 147/69 H 130/60 Pulse Oximetry 97 99 Oxygen Delivery Method Room Air Room Air 06/20/23 02:22 06/20/23 02:30 06/20/23 02:30 Temperature Pulse Rate 87 77 Respiratory Rate Blood Pressure 118/58 L Pulse Oximetry 99 99 Oxygen Delivery Method Room Air 06/20/23 03:00 06/20/23 03:01 06/20/23 03:01 Temperature Pulse Rate 89 77 Respiratory Rate 16 Blood Pressure 138/60 Pulse Oximetry 99 98 Oxygen Delivery Method Room Air 06/20/23 03:30 06/20/23 03:30 06/20/23 04:00 Temperature Pulse Rate 71 Respiratory Rate Blood Pressure 140/66 124/60 Pulse Oximetry 97 Oxygen Delivery Method Room Air 06/20/23 04:00 06/20/23 04:30 06/20/23 04:30 Temperature Pulse Rate 84 83 Respiratory Rate Blood Pressure 140/69 Pulse Oximetry 98 98 Oxygen Delivery Method Room Air Room Air 06/20/23 05:00 06/20/23 05:00 06/20/23 05:31 Temperature Pulse Rate 70 87 Respiratory Rate Blood Pressure 137/69 Pulse Oximetry 97 98 Oxygen Delivery Method Room Air Room Air MDM - Abdominal Pain Lab Data 06/20/23 02:20 06/20/23 02:20 Labs: Lab Results 06/20/23 06/20/23 Range/Units 02:20 02:20 WBC 9.1 (4.5-11.0) X10^3/uL RBC 4.20 (4.0-5.2) X10^6/uL Hgb 11.9 L (12.0-16.0) g/dL Hct 34.9 L (36-46) % MCV 83.2 (80-100) fL MCH 28.3 (26-34) PG MCHC 34.0 (30-36) % RDW 13.7 (11.6-14.8) % Plt Count 279 (150-400) X10^3/uL Neut % (Auto) 70.8 (50-75) % Lymph % (Auto) 19.8 L (25-40) % [place] % (Auto) 7.9 (3-14) % Eos % (Auto) 0.8 L (2-4) % Baso % (Auto) 0.7 (0-2) % Neut # (Auto) 6400 (4494-0896) /uL Lymph # (Auto) 1800 (8344-8408) /uL [place] # (Auto) 700 (0-900) /uL Eos # (Auto) 100 (0-450) /uL Baso # (Auto) 100 (0-100) /uL Sodium 140 (137-145) mmol/L Potassium 3.6 (3.4-5.1) mmol/L Chloride 111 H (98-107) mmol/L Carbon Dioxide 23 (22-32) mmol/L BUN 9 (7-17) mg/dL Creatinine 0.98 (0.52-1.04) mg/dL Estimated GFR > 60 (>60) mL/min BUN/Creatinine Ratio 9.2 (6-22) Glucose 99 (70-100) mg/dL Calcium 8.2 L (8.4-10.2) mg/dL Total Bilirubin 0.4 (0.2-1.3) mg/dL AST 31 (14-36) IU/L ALT 23 (<35) IU/L Alkaline Phosphatase 122 (38-126) U/L Total Protein 7.6 (6.3-8.2) g/dL Albumin 3.7 (3.5-5.0) g/dL Globulin 3.9 (1.7-4.1) g/dL Albumin/Globulin Ratio 0.9 L (1.0-2.8) Lipase 197 (23-300) U/L Point of care testing: Point of Care Testing Test Results Negative Urine Dip Bedside Urine Glucose Negative Bedside Urine Bilirubin - Negative Bedside Urine Ketone - Negative Urine Specific [place] 1.020 Bedside Urine Occult Blood - Negative Bedside Urine pH 6.0 Bedside Urine Protein - Negative Bedside Urine Urobilinogen - Negative Bedside Urine Nitrite - Negative Bedside Urine Leukocytes - Negative Esterase Imaging Data US Pelvic: Radiologist's Impression: Preliminary report left ovarian is not visualized 15.6 x 13 x 13.2 simple appearing right adnexal cyst MDM Narrative Medical decision making narrative: Patient 48-year-old female history of hypertension no obesity presenting with lower abdominal pelvic pain. No evidence of infection blood work is overall reassuring. Cyst does seem to be enlarging it was previously (05/24/2023) 13 x 12 x 12 and is now 15 x 13 x 13. Likely causing her pain. Dr. Camilo contacted in regards to enlarging cyst over the last couple of weeks. Aware of patient body habitus recommends surgery can be added on later today.Accepts to Observation Patient initially given Toradol for pain which did help some but then required some Dilaudid. Discharge Plan Departure Patient Disposition: Admitted as Observation Clinical Impression: Cyst of right ovary Admit Date/Time: 06/20/23 05:36 Admit Provider: Ingrid Camilo
[2023-06-20] MEDS: KETOROLAC 30 MG/ML VIAL 15 MG IV (03:02)
[2023-06-20] MEDS: ONDANSETRON 4 MG/2 ML INJ IV ×4 (03:02→17:13)
[2023-06-20] MEDS: HYDROMORPHONE 0.5 MG INJ IV ×2 (05:19→08:28)
[2023-06-20] MEDS: SODIUM CHLORIDE 0.9% 1,000 ML 125 ML IV (06:33)
--- NOTE | 2023-06-20 07:05 | PM.GYNHP.1 ---
History of Present Illness History of Present Illness Reason for admission: pelvic pain Narrative: Mikki Perez is a 48 year old female 5 para 4 who presented to the emergency department with right lower quadrant pain. She has had a known right ovarian cyst since late 2020. It was 9 cm at that time. Earlier this month she was seen and it had grown to 13 cm. Today it is 15 cm. She did have a CA 125 in 2021 and it was 9.5. Patient reports no fever or chills. She is had no change in bowel or bladder. Just persistent right lower quadrant pain. She is status post a laparoscopic cholecystectomy and a laparoscopic tubal ligation. Has had 4 vaginal deliveries. [facility] Medical History (Updated 06/20/23 @ 07:25 by Ingrid Camilo MD) Anxiety Elevated fasting blood sugar Fatty liver disease, nonalcoholic FHx: diabetes mellitus History of hypercalcemia Obesity, morbid, BMI 40.0-49.9 Premenopausal menorrhagia Seasonal allergies UTI (urinary tract infection) Surgical History History of bilateral tubal ligation History of cholecystectomy Family History Father Diabetes mellitus Hypertension Mother Cancer Hypertension Social History marital status: household members: spouse and children Smoking Status: Never smoker alcohol intake: current Meds Home Medications and Allergies Home Medications Medication Instructions Recorded Confirmed Type albuterol sulfate 90 mcg/actuation 1 puff inhalation Q4H PRN asthma 12/30/21 06/20/23 Rx aerosol inhaler (ProAir HFA) #8.5 grams cetirizine 10 mg tablet 10 mg PO DAILY #90 tabs 12/30/21 06/20/23 Rx clonazepam 0.5 mg tablet 1 mg PO BID PRN anxiety #60 tabs 12/30/21 06/20/23 Rx montelukast 10 mg tablet 10 mg PO DAILY #90 tabs 12/30/21 06/20/23 Rx (Singulair) lisinopril 10 mg tablet 20 mg PO DAILY 01/06/22 06/20/23 History Allergies Allergy/AdvReac Type Severity Reaction Status Date / Time ciprofloxacin Allergy Mild GI UPSET Verified 11/21/21 08:00 codeine AdvReac Unknown STOMACH Verified 11/21/21 08:00 Exam Vital Signs (past 8 hours): - 06/20/23 01:58 06/20/23 02:21 06/20/23 02:22 Temperature 97.9 F Pulse Rate 88 Respiratory Rate 20 Blood Pressure 147/69 H 130/60 Pulse Oximetry 97 99 Oxygen Delivery Method Room Air Room Air Oxygen Flow Rate 06/20/23 02:22 06/20/23 02:30 06/20/23 02:30 Temperature Pulse Rate 87 77 Respiratory Rate Blood Pressure 118/58 L Pulse Oximetry 99 99 Oxygen Delivery Method Room Air Oxygen Flow Rate 06/20/23 03:00 06/20/23 03:01 06/20/23 03:01 Temperature Pulse Rate 89 77 Respiratory Rate 16 Blood Pressure 138/60 Pulse Oximetry 99 98 Oxygen Delivery Method Room Air Oxygen Flow Rate 06/20/23 03:30 06/20/23 03:30 06/20/23 04:00 Temperature Pulse Rate 71 Respiratory Rate Blood Pressure 140/66 124/60 Pulse Oximetry 97 Oxygen Delivery Method Room Air Oxygen Flow Rate 06/20/23 04:00 06/20/23 04:30 06/20/23 04:30 Temperature Pulse Rate 84 83 Respiratory Rate Blood Pressure 140/69 Pulse Oximetry 98 98 Oxygen Delivery Method Room Air Room Air Oxygen Flow Rate 06/20/23 05:00 06/20/23 05:00 06/20/23 05:31 Temperature Pulse Rate 70 87 Respiratory Rate Blood Pressure 137/69 Pulse Oximetry 97 98 Oxygen Delivery Method Room Air Room Air Oxygen Flow Rate 06/20/23 06:00 06/20/23 06:23 Temperature 97.4 F L Pulse Rate 88 73 Respiratory Rate 17 Blood Pressure 142/57 H Pulse Oximetry 98 98 Oxygen Delivery Method Room Air Oxygen Flow Rate 0 Oxygen Delivery Method Room Air Oxygen Flow Rate 0 Narrative Exam Narrative: Generally: Patient lying on her left side, mild distress secondary to right lower quadrant pain Lungs: Clear to auscultation bilaterally Cardiovascular: Regular rate and rhythm Abdomen: Soft. No guarding. Tenderness to palpation in the right lower quadrant. Well-healed infraumbilical and right upper quadrant laparoscopy scars. Extremities: No edema Objective Labs 06/20/23 02:20 06/20/23 02:20 Labs: Laboratory Results - last 24 hr 06/20/23 06/20/23 02:20 02:20 WBC 9.1 RBC 4.20 Hgb 11.9 L Hct 34.9 L MCV 83.2 MCH 28.3 MCHC 34.0 RDW 13.7 Plt Count 279 Neut % (Auto) 70.8 Lymph % (Auto) 19.8 L [place] % (Auto) 7.9 Eos % (Auto) 0.8 L Baso % (Auto) 0.7 Neut # (Auto) 6400 Lymph # (Auto) 1800 [place] # (Auto) 700 Eos # (Auto) 100 Baso # (Auto) 100 Sodium 140 Potassium 3.6 Chloride 111 H Carbon Dioxide 23 BUN 9 Creatinine 0.98 Estimated GFR > 60 BUN/Creatinine Ratio 9.2 Glucose 99 Calcium 8.2 L Total Bilirubin 0.4 AST 31 ALT 23 Alkaline Phosphatase 122 Total Protein 7.6 Albumin 3.7 Globulin 3.9 Albumin/Globulin Ratio 0.9 L Lipase 197 Assessment & Plan Assessment & Plan narrative: Assessment: 48-year-old 5 para 4 with a 15 cm simple right ovarian cyst Plan: Laparoscopic removal of the right tube and ovary, possible open Patient signed out to Dr. Tate Anguiano Time Spent With Patient Time with patient: less than 30 minutes
--- NOTE | 2023-06-20 12:53 | CM.DANOTE ---
DCP/Assessment: Reviewed chart. Patient is a 48yr old female admitted to [facility] with abd pain. PCP is Dr. Perez. Primary payor is 1)[employer] MG[facility] 2)[facility].Patient currently OBS status. Met with patient and family at bedside. Patient reports that she has a 13 cm cyst which has been causing her pain and is being removed today by Dr. Camilo. Patient reports that she resides with family and is completely I with all ADL's. Patient does not anticipate any d/c planning needs. CM team to continue to follow if needs were to arise. Patient reports that she is not sure if she is going home after procedure or tomorrow. P: Home when stable. KJS Discharge Planning/Care Management CM Discharge Assessment Start: 06/20/23 12:46 Freq: Status: Active Protocol: Document 06/20/23 12:46 KJS (Rec: 06/20/23 12:52 KJS Laptop) Discharge Planning Assessment Assigned Shook Machine Operator CHARLOTTE Lemus Contact Information Tucker Buchanan (significant other) ph# [phone] Advance Directives? No History Provided By Patient,Significant Other Has Patient been admitted in last 30 No days? Prior Living Arrangements House Household Members spouse,children Type of transporation used prior to Drives own vehicle admit Independent with ADL's Yes Is patient alert and oriented? Yes Caregiver for Another No: Has college aged children Comment Patient uses no DME at baseline. Barriers to Discharge No Transportation Arrangement Friend/Tucker can provide transport. Referrals Initiated None needed Additional Comment No d/c needs anticipated but will continue to follow. Whiteboard Updated in Patient Room with Yes name and ext. # of Shook Machine Operator Review Status In Process Next Review Type Continued Stay Review Document 06/20/23 12:53 KJS (Rec: 06/20/23 12:53 KJS Laptop) Discharge Planning Assessment Assigned Shook Machine Operator CHARLOTTE Lemus Contact Information Tucker Buchanan (significant other) ph# [phone] Advance Directives? No History Provided By Patient,Significant Other Has Patient been admitted in last 30 No days? Prior Living Arrangements House Household Members spouse,children Type of transporation used prior to Drives own vehicle admit Independent with ADL's Yes Is patient alert and oriented? Yes Caregiver for Another No: Has college aged children Comment Patient uses no DME at baseline. Barriers to Discharge No Transportation Arrangement Friend/Tucker can provide transport. Referrals Initiated None needed Additional Comment No d/c needs anticipated but will continue to follow. Whiteboard Updated in Patient Room with Yes name and ext. # of Shook Machine Operator Review Status In Process Next Review Type Continued Stay Review
--- NOTE | 2023-06-20 14:30 | SUR.OPER ---
Addendum entered by So Pike R.N. 06/20/23 15:33: Lithotomy on padded OR bed, head on pillow, arms secured on padded arm boards at <90 degrees abduction. Legs secured in padded yellow fins stirrups. Supine positioning note below entered in error Original Note: Supine on padded OR bed, head on pillow, arms secured on padded arm boards at <90 degrees abduction, legs uncrossed, safety belt at thigh, tape over blanket over lower legs.
[2023-06-20] MEDS: BUPIVACAINE 0.5% (PF) 30 ML, EPINEPHrine 0.15 MG INJ (15:40)
[2023-06-20] MEDS: LACTATED RINGERS 1,000 ML 42 ML IV (16:00)
[2023-06-20] MEDS: hydrOXYzine 50 MG/ML INJ 25 MG IM (17:23)
[2023-06-20] MEDS: SCOPOLAMINE 1 PATCH TOP (17:24)
[2023-06-20] MEDS: HYDROMORPHONE 1 MG INJ IV (17:31)
--- NOTE | 2023-06-20 17:42 | PM.GYNOP.1 ---
Operative Date/Time/Diagnoses Date of procedure: 06/20/23 Time of procedure: 15:20 Pre-op diagnosis: Simple cyst, right ovary Post-op diagnosis: same Procedure & Clinicians Procedure: Procedures Operation Date: 06/20/23 14:30 Actual Procedure Side Surgeon p Laparoscopic Oophorectomy 15cm Right Tate Anguiano MD Indications: Mikki Perez is a 48 year old female 5 para 4 who presented to the emergency department with right lower quadrant pain. She has had a known right ovarian cyst since late 2020.? It was 9 cm at that time.? Earlier this month she was seen and it had grown to 13 cm.? Today it is 15 cm.? She did have a CA 125 in 2021 and it was 9.5.? Patient reports no fever or chills.? She is had no change in bowel or bladder.? Just persistent right lower quadrant pain. Patient counseled all options for further evaluation/treatment right ovarian cyst after consideration of all options see is opted for laparoscopic right oophorectomy. Preoperatively she was counseled regarding alternatives, risks, benefits, and potential complications associated with procedure consent was executed, signed, and witnessed this date. Surgeon: Tate Anguiano Anesthesia Type: General Operative Notes Findings: 15 cm unilocular cyst arising from the hilar aspect of the right ovary. The cyst wall is smooth, with no nodularity and there was no significant solid component of this cysts. Fluid within the cyst is crystal clear. No other abnormalities are noted aside from changes consistent with prior bilateral salpingectomy. Closure Type: primary Specimen(s): other (Right ovary and cyst) Estimated blood loss (mL): 10 Blood products transfused: none Procedure in detail: With the patient under satisfactory general anesthesia in the modified dorsal lithotomy position, perineum, vagina, and abdomen were prepped and draped in usual manner for laparoscopy. A pre-surgical safety time-out was then taken in accordance with [facility] OR protocols. The umbilicus was infiltrated with 0.5% Marcaine with epinephrine and a 3 cm transverse infraumbilical incision was then made and carried down to the fascia. The fascia was grasped with 2 Cheryl's and incised with Metzenbaum scissors. The peritoneum was entered with Metzenbaum scissors and a Chew cannula was placed through the fascial defect into the abdominal cavity. The abdomen was insufflated with carbon dioxide and once sufficiently insufflated, a 2nd and 3rd port were placed in the mid quadrants on both sides. Using a 3 puncture technique, pelvis and abdomen were thoroughly inspected with the findings as noted previously. A laparoscopic needle was used to puncture the cyst wall and clear fluid was aspirated. Suction computer systems software architect was then used to evacuate all fluid coming from the puncture site and the puncture site itself was expanded slightly so as to allow aspiration of the cyst. Once the cyst was aspirated, the laparoscopic was placed within the cyst itself and the surface of the cyst lining was carefully inspected throughout the cyst surface itself. The power Seal device was then used to coagulate and divide the attachment of the cyst to the ulnar aspect of the ovary on the right and the cyst was placed in a separate location for later retrieval. The infundibulopelvic ligament on the right-hand side was then identified and doubly coagulated with the power Seal device at which point the infundibulopelvic ligament was divided. No bleeding was encountered the dissection was carried across the mesosalpinx to the cornua where the utero-ovarian ligament was coagulated and divided. An Endo-Catch was used to retrieve both the cyst and the right ovary which were brought out through the incision in the umbilicus. The fascial defect at the umbilicus was then closed with 2-0 Vicryl interrupteds, a 0 Vicryl was used to close the subcutaneous tissues and 4-0 Monocryl using inverted interrupted were used to close all the incisions. Skin glue was applied to the incisions followed by appropriate dressings. Patient was then transferred to the PACU for a period of observation and recovery after having tolerated the procedure well. Complications: none Post-operative Condition: stable Disposition: PACU Plan for aftercare: Routine postop care.
[2023-06-20] MEDS: PROCHLORPERAZINE 10 MG/2 ML VIAL 5 MG IV (18:00)
[2023-06-20] MEDS: METOCLOPRAMIDE 10 MG/2 ML INJ IV (18:32)
[2023-06-20] MEDS: KETOROLAC 30 MG/ML VIAL IV (18:35)
[2023-06-20] MEDS: LACTATED RINGERS 1,000 ML 100 ML IV ×2 (18:36→23:01)
[2023-06-20] MEDS: ACETAMINOPHEN 325 MG TABLET 650 MG PO (21:09)
[2023-06-21] MEDS: KETOROLAC 30 MG/ML VIAL IV ×3 (00:39→11:34)
[2023-06-21 01:30] VITALS: BP 122/64; PULSE 73; RESP 18; TEMP 36.9; O2SAT 94
[2023-06-21 05:30] VITALS: BP 114/59; PULSE 78; RESP 18; TEMP 36.5; O2SAT 98
[2023-06-21 07:30] VITALS: BP 115/59; PULSE 78; RESP 19; TEMP 37.1; O2SAT 97
[2023-06-21] MEDS: ACETAMINOPHEN 325 MG TABLET 650 MG PO (08:19)
--- NOTE | 2023-06-21 09:04 | CM.DPC ---
JONNY Cont. Met with pt at bedside to introduce self and offer resource assistance, per pt's request. Pt shares that she is having some food insecurity at home, she is raising her 2-grandchildren, and is struggling with their 2-person income to make ends meet. She is a [facility] member, and also works for the [employer]. 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 SE[employer]IC [employer]MP TR[employer]IVER encouraged her to contact the [facility] [employer] TR[employer]IVER, who may know of specific grants or benefits she may qualify for. Also offed the Senior Resources Guide, and marked the page with all of the local food assistance resources available in [facility]. She feels comfortable with this plan. In terms of comfort post-surgery, she states that she feels so much better, and is ready to go home. Spouse will be here shortly to transport. No further in-home resource needs identified at this time.
--- NOTE | 2023-06-21 13:27 | PC.NURSE ---
Discharge education given to patient, patient verbalized understanding and all questions answered. All belongings are with patient, no items locked in safe. IV removed. RN escorted patient out to private vehicle.
== END 2023-06-21 13:29 | disposition home or self-care (01) ==
LOC: ED 02:19 → AC 05:36
PROVIDERS: Obstetrics & Gynecology; Admitting Provider Obstetrics & Gynecology; Emergency Provider Emergency Medicine; PCP Family Medicine; Visit Provider Obstetrics & Gynecology
PROC: (CPT 58661; principal; 2023-06-20 14:30)
DX: N83.201 Unspecified ovarian cyst, right side (principal); E66.01 Morbid (severe) obesity due to excess calories; I10 Essential (primary) hypertension; J45.909 Unspecified asthma, uncomplicated
CPT/HCPCS: 58661; 36415; 76856; 80053; 81003; 81025; 83690; 85025; 96361; 96372; 96374; 96375; 96376; 99284; G0378; J0171; J0330; J0780; J1100; J1170; J1885; J2405; J2704; J2765; J3010; J3410; J3490

== ENCOUNTER → 2023-11-05 13:29 | Outpatient (CLI) | payer OTHER, SELFPAY ==
[2023-06-20 06:22] VITALS: BMI 46.8
--- NOTE | 2023-11-05 13:32 | DI.MG.S_ITS ---
BILATERAL DIGITAL DIAGNOSTIC MAMMOGRAM 3D/2D: 11/05/2023 CLINICAL: Baseline. Left breast lump. No prior exams were available for comparison. Both breasts are almost entirely fatty (category a/<25% glandular tissue). No significant masses, calcifications, or other findings are seen in either breast. Specifically, no finding to correspond to the patient's palpable abnormality. Bilateral mammograms are otherwise normal. IMPRESSION: INCOMPLETE: NEEDS ADDITIONAL IMAGING EVALUATION There is no abnormality seen in the left breast to correspond with the palpable abnormality in the sub-areolar depth. Ultrasound is recommended for full evaluation of this area. This was performed immediately following this exam. Mammograms are otherwise normal. Based on the Tyrer Cuzick model (a risk assessment model) the patient's lifetime risk is 8.0% and her 10 year risk is 1.7%. According to the ACR, ACS, and NCCN guidelines, an annual breast MRI exam along with mammogram is recommended if the patient's lifetime risk is 20% or greater. This exam was interpreted at Station ID: [id number]. NOTE: For mammograms, a report in lay terms will be sent to the patient. Approximately 15% of breast malignancies will not be visualized mammographically. In the management of a palpable breast mass, a negative mammogram must not discourage biopsy of a clinically suspicious lesion. Electronically Signed By: Eun ballard/:11/05/2023 14:24:33 ACR BI-RADS Category 0: Incomplete 3340F
--- NOTE | 2023-11-05 13:33 | DI.US.S_ITS ---
LIMITED ULTRASOUND OF LEFT BREAST: 11/05/2023 CLINICAL: Left breast lump. Comparison is made to exam dated: 11/05/2023 mammogram - [facility]. Color flow and real-time ultrasound of the left breast 9 o'clock, and retroareolar regions were performed. Scales scale images of the real-time examination were reviewed. There is a 2.1 cm x 1.6 cm x 0.7 cm oval, subdermal fluid collection with an irregular internal wall in the left breast at 9 o'clock in the retroareolar region 1 cm from the nipple. This oval fluid collection is hypoechoic with posterior acoustic enhancement. There is a tract through the dermal layer to the surface. This correlates as palpated. Color flow imaging demonstrates that there is vascularity present. IMPRESSION: PROBABLY BENIGN The 2.1 cm fluid collection in the subdermal left breast corresponds to the palpable abnormality, most likely is a sebaceous cyst and is probably benign. A follow-up ultrasound in 3 months following conservative treatment is recommended. Findings and recommendations were conveyed to the patient at time of exam. This exam was interpreted at Station ID: [id number]. Electronically Signed By: Eun ballard/:11/05/2023 14:53:12 letter sent: Followup Recommended Ultrasound BI-RADS: 3 Probably benign
== END ==
LOC: MAMMO 13:30
PROVIDERS: PCP Family Medicine; Referring Provider Family Medicine; Visit Provider Family Medicine
DX: R92.2 Inconclusive mammogram (principal); N63.42 Unspecified lump in left breast, subareolar
CPT/HCPCS: 76642; 77066; G0279

== ENCOUNTER 2023-11-20 02:55 | Emergency (ER) | payer OTHER, SELFPAY ==
[2023-06-20 06:22] VITALS: BMI 46.8
[2023-11-20 02:58] VITALS: BP 128/59; PULSE 123; RESP 20; TEMP 36.8; O2SAT 94; BMI 47.2
[2023-11-20] MEDS: KETOROLAC 30 MG/ML VIAL IM (03:21)
--- NOTE | 2023-11-20 04:01 | ED.EXTPRO ---
HPI - Extremity Problem General Chief complaint: Extremity Problem,Nontraumatic Stated complaint: sciatica pain Time Seen by Provider: 11/20/23 03:10 Source: patient Mode of arrival: Family Vehicle History of Present Illness HPI Narrative: Patient is a 48-year-old history of hypertension presenting today with left leg sciatic pain. She reports it has been ongoing for the last 3 weeks. She is in physical therapy. She reports that tonight she is unable to sleep. She has no weakness, saddle anesthesia urinary incontinence. She has been taking ibuprofen and Tylenol only for pain. Related Data Home Medications Medication Instructions Recorded Confirmed lisinopril 10 mg tablet 20 mg PO DAILY 01/06/22 07/03/23 Previous Rx's Medication Instructions Recorded albuterol sulfate 90 mcg/actuation 1 puff inhalation Q4H PRN asthma 12/30/21 aerosol inhaler (ProAir HFA) #8.5 grams cetirizine 10 mg tablet 10 mg PO DAILY #90 tabs 12/30/21 clonazepam 0.5 mg tablet 1 mg (2 x 0.5 mg) PO BID PRN 12/30/21 anxiety #60 tabs montelukast 10 mg tablet 10 mg PO DAILY #90 tabs 12/30/21 (Singulair) gabapentin 300 mg capsule 300 mg PO BEDTIME #30 caps 11/20/23 hydrocodone 5 mg-acetaminophen 325 1 tab PO Q6H PRN pain #10 tabs 11/20/23 mg tablet Allergies Allergy/AdvReac Type Severity Reaction Status Date / Time ciprofloxacin Allergy Mild GI UPSET Verified 07/03/23 16:25 codeine AdvReac Unknown STOMACH Verified 07/03/23 16:25 Patient History Medical History Fatty liver disease, nonalcoholic Premenopausal menorrhagia Obesity, morbid, BMI 40.0-49.9 History of hypercalcemia FHx: diabetes mellitus Elevated fasting blood sugar UTI (urinary tract infection) Seasonal allergies Anxiety Surgical History History of bilateral tubal ligation History of cholecystectomy Family History Father Diabetes mellitus Hypertension Mother Cancer Hypertension Social History (Reviewed 11/20/23 @ 04:02 by PARAG Byers marital status: household members: spouse and children Smoking Status: Never smoker alcohol intake: current Smoking Status: Never smoker alcohol intake frequency: holidays/special occasions only Substance Use Type: does not use Exam Initial Vital Signs Initial Vital Signs: Vital Signs Temperature 98.2 F 11/20/23 02:58 Pulse Rate 123 H 11/20/23 02:58 Respiratory Rate 20 11/20/23 02:58 Blood Pressure 128/59 L 11/20/23 02:58 Pulse Oximetry 94 11/20/23 02:58 Oxygen Delivery Method Room Air 11/20/23 02:58 GENERAL: Alert 48-year-old female appears in pain BMI 47 CARDIOVASCULAR: peripheral pulses in tact, cap refill <2 sec RESPIRATORY: No respiratory distress, speaks in full sentences without difficulty BACK: Lower lumbar pain no vertebral tenderness EXTREMITIES: Normal range of motion, no clubbing or edema. Neurovascularly intact NEUROLOGICAL: Cranial nerves II through XII grossly intact. Normal gait and speech. SKIN: Warm, dry, no petechiae, no rashes or lesions. Course Orders Ordered: Discontinued Medications Hydrocodone Bitart/Acetaminophen (Hydrocodone/Acet 5/325 Prepack) 1 bottle MISC DIRECTED ONE Stop: 11/20/23 04:01 Last Admin: 11/20/23 04:26 Dose: 1 bottle Documented By: ESTHER Gabapentin (Gabapentin 300 Mg Capsule) 300 mg PO NOW ONE Stop: 11/20/23 04:01 Last Admin: 11/20/23 04:25 Dose: 300 mg Documented By: ESTHER Ketorolac Tromethamine (Ketorolac 30 Mg/Ml Vial) 30 mg IM NOW ONE Stop: 11/20/23 03:11 Last Admin: 11/20/23 03:21 Dose: 30 mg Documented By: ESTHER Vital Signs Vital signs: Vital Signs - 8 hr 11/20/23 02:58 11/20/23 04:30 Temperature 98.2 F Pulse Rate 123 H 96 H Respiratory Rate 20 20 Blood Pressure 128/59 L 136/76 Pulse Oximetry 94 97 Oxygen Delivery Method Room Air Room Air MDM - Extremity (Nontraumatic) MDM Narrative Medical decision making narrative: Patient is a 48-year-old female who has ongoing sciatica presenting today with increasing sciatica. She has not yet had an MRI but has signs or symptoms concerning for cauda equina. She is given Toradol gabapentin and [place] here in the ED. Discussed she needs to continue her physical therapy and may pursue other outpatient treatments. Discharge Plan Departure Patient Disposition: Home Clinical Impression: Sciatica Instructions: Sciatica Activity Restrictions/Additional Instructions: *You have been diagnosed with sciatica *What to do: Increase activity as tolerated I do recommend that you have an outpatient MRI. Please continue physical therapy do all of your exercises *Continue to take medications as directed Gabapentin 300 mg at nighttime can be adjusted by your primary care provider [place] 1 tablet every 6 hours if needed for severe pain *Follow up with your primary care provider in 2-3 days or call [phone] *Return to ER if you should have increasing leg weakness loss of urine or any new, worsening or concerning symptoms CONTROLLED SUBSTANCE DISCHARGE (Narcotoic/benzodiazepine/Flexeril/Phenergan) 1. You have been prescribed narcotic medications, it does have acetaminophen/Tylenol/paracetamol in it, DO NOT TAKE MORE THAN 4,00mg in 24 hours of Tylenol. TRAMADOL DOES NOT CONTAIN TYLENOL 2. Please understand that we cannot provide further refills of narcotics, benzodiazepines or controlled substances through the ED and her pain management will need to be through your provider. 3. While on these medications you cannot drive or operate heavy machinery. 4. You cannot sign legal documents or perform any duties such as this. 5. As long as you're taking opiate pain medications he should also be taking a stool softener such as Colace, Dulcolax, MiraLAX or prune juice, to help avoid constipation. Prescriptions: New hydrocodone-acetaminophen 5-325 mg tablet 1 tab PO Q6H PRN (Reason: pain) Qty: 10 0RF gabapentin 300 mg capsule 300 mg PO BEDTIME Qty: 30 0RF No Action clonazepam 0.5 mg tablet 1 mg PO BID PRN (Reason: anxiety) Qty: 60 2RF albuterol sulfate [ProAir HFA] 90 mcg/actuation HFA aerosol inhaler 1 puff INHALATION Q4H PRN (Reason: asthma) Qty: 8.5 0RF Patient Comments: takes when wakes up montelukast [Singulair] 10 mg tablet 10 mg PO DAILY Qty: 90 3RF cetirizine 10 mg tablet 10 mg PO DAILY Qty: 90 3RF lisinopril 10 mg tablet 20 mg PO DAILY Patient Comments: Rx per Dr Lr according to [facility] Referrals: Abisai Perez DO [Primary Care Provider] - Stand Alone Forms: Patient Portal/API
[2023-11-20] MEDS: GABAPENTIN 300 MG CAPSULE PO (04:25)
[2023-11-20] MEDS: HYDROCODONE/ACET 5/325 PREPACK 1 BOTTLE MISC (04:26)
[2023-11-20 04:30] VITALS: BP 136/76; PULSE 96; RESP 20; O2SAT 97
== END 2023-11-20 04:32 | disposition home or self-care (01) ==
PROVIDERS: Emergency Provider Emergency Medicine; PCP Family Medicine
DX: M54.32 Sciatica, left side (principal)
CPT/HCPCS: 96372; 99283; J1885

== ENCOUNTER → 2023-12-26 15:05 | Outpatient (CLI) | payer OTHER, SELFPAY ==
[2023-06-20 06:22] VITALS: BMI 46.8
--- NOTE | 2023-12-26 15:09 | DI.RAD.S_ITS ---
PROCEDURE: XR KNEE RT 3V INDICATIONS: FALL TECHNIQUE: 3 views of the knee were acquired. COMPARISON: [facility], CR, XR KNEE RT 3V, 11/27/2020, 19:33. FINDINGS: Bones: No fractures or dislocations. No suspicious bony lesions. Soft tissues: Moderate joint effusion. No suspicious soft tissue calcifications. IMPRESSION: Moderate effusion. No visualized acute fracture or dislocation. However, if clinical concern and/or pain persist, short interval imaging followup in 7-10 days is recommended, as occult injury cannot be definitively excluded. Dictated by: Jing Avalos M.D. on 12/26/2023 at 16:43 Approved by: Jing Avalos M.D. on 12/26/2023 at 16:44
== END ==
PROVIDERS: PCP Family Medicine; Referring Provider Registered Nurse; Visit Provider Registered Nurse
DX: M25.561 Pain in right knee (principal); M25.461 Effusion, right knee
CPT/HCPCS: 73562

== ENCOUNTER → 2024-03-10 12:54 | Outpatient (CLI) | payer OTHER, SELFPAY ==
[2023-06-20 06:22] VITALS: BMI 46.8
--- NOTE | 2024-03-10 12:55 | DI.US.S_ITS ---
LIMITED ULTRASOUND OF LEFT BREAST: 03/10/2024 CLINICAL: Patient returns today to evaluate an asymmetry in the left breast. Comparison is made to exams dated: 11/05/2023 ultrasound and 11/05/2023 mammogram - [facility]. Real-time ultrasound of the left breast 9 o'clock, and retroareolar regions was performed. Scales scale images of the real-time examination were reviewed. The benign fluid collection in the left breast at 9 o'clock in the retroareolar region is no longer seen. IMPRESSION: BENIGN There is no sonographic evidence of malignancy. Left breast fluid collection is resolved. A 1 year screening mammogram is recommended. Exam findings were conveyed to the patient. This exam was interpreted at Station ID: [id number]. Electronically Signed By: Uriel Madera M.D. slc/:03/10/2024 13:21:02 letter sent: Normal Exam Ultrasound BI-RADS: 2 Benign
== END ==
PROVIDERS: PCP Family Medicine; Referring Provider Family Medicine; Visit Provider Family Medicine
DX: N63.42 Unspecified lump in left breast, subareolar (principal)
CPT/HCPCS: 76642

== ENCOUNTER 2024-04-28 17:43 | Emergency (ER) | payer OTHER, SELFPAY ==
[2023-06-20 06:22] VITALS: BMI 46.8
[2024-04-28] VITALS (7 sets, daily range): BP systolic 112–132; BP diastolic 52–72; PULSE 103–117; RESP 16; TEMP 36.6–37.6; O2SAT 91–99; BMI 50.3
[2024-04-28 18:08] LABS: Add Manual Diff / Slide Review NO; Basophils Absolute Auto 100 /uL (0-100); Basophils Percent Auto 0.4 % (0-2); Eosinophils Absolute Auto 100 /uL (0-450); Eosinophils Percent Auto 0.4 % (2-4); Hematocrit 39.6 % (36-46); Hemoglobin 13.2 g/dL (12.0-16.0); Lymphocytes Absolute Auto 1000 /uL (1100-4500); Lymphocytes Percent Auto 6.3 % (25-40); Mean Corpuscular HGB Conc 33.4 % (30-36); Mean Corpuscular Hemoglobin 28.2 PG (26-34); Mean Corpuscular Volume 84.3 fL (80-100); Monocytes Absolute Auto 700 /uL (0-900); Monocytes Percent Auto 4.5 % (3-14); Neutrophils Absolute Auto 13600 /uL (1500-7000); Neutrophils Percent Auto 88.4 % (50-75); Platelet Count 298 X10^3/uL (150-400); Red Blood Cell Count 4.69 X10^6/uL (4.0-5.2); Red Cell Distribution Width 13.9 % (11.6-14.8); White Blood Cell Count 15.4 X10^3/uL (4.5-11.0)
[2024-04-28] MEDS: ONDANSETRON 4 MG/2 ML INJ IV (18:13)
[2024-04-28] MEDS: SODIUM CHLORIDE 0.9% 1,000 ML 1000 ML IV ×2 (18:13→19:44)
[2024-04-28 18:30] LABS: Alanine Aminotransferase 34 IU/L (<35); Albumin Globulin Ratio 1.1 (1.0-2.8); Alkaline Phosphatase 151 U/L (38-126); Aspartate Aminotransferase 63 IU/L (14-36); BUN Creatinine Ratio 12.9 (6-22); Bilirubin Total 0.8 mg/dL (0.2-1.3); Blood Urea Nitrogen 12 mg/dL (7-17); Calcium 8.4 mg/dL (8.4-10.2); Carbon Dioxide 24 mmol/L (22-32); Chloride 107 mmol/L (98-107); Estimated Glomerular Filt Rate > 60 mL/min (>60); Globulin 3.8 g/dL (1.7-4.1); Glucose 118 mg/dL (70-100); HEMOLYSIS < 15 (0-50); Lipase 154 U/L (23-300); Potassium 4.2 mmol/L (3.4-5.1); Sodium 137 mmol/L (137-145); Total Protein 7.8 g/dL (6.3-8.2)
--- NOTE | 2024-04-28 18:43 | ED_ITS ---
HPI - Nausea/Vomiting/Diarrhea General Chief complaint: Nausea/Vomiting/Diarrhea Stated complaint: D/V Time Seen by Provider: 04/28/24 17:52 Source: patient Mode of arrival: Family Vehicle History of Present Illness HPI Narrative: 49-year-old female with numerous episodes of nonbloody emesis through the day today, numerous episodes of loose stools through the day today, family members with similar symptoms 2 days ago, no fevers or chills, she has crampy abdominal pain that seems to be worsening, no relief with [id number] ibuprofen, at triage was given antinausea medication, she still feels quite nauseated. No trauma injury new activities. No recent exposure to antibiotics. No travel or camping. No history of Crohn's disease or other chronic gastrointestinal disorders. Prior abdominopelvic surgery remote cholecystectomy, remote unilateral oophorectomy, still has her uterus. No vaginal bleeding. Denies pain with urination, frequency of urination, urgency, dark/red urine. She denies flank pain or back pain. She denies cough shortness of breath, denies chest pain. Related Data Home Medications Medication Instructions Recorded Confirmed lisinopril 10 mg tablet 20 mg PO DAILY 01/06/22 07/03/23 Previous Rx's Medication Instructions Recorded albuterol sulfate 90 mcg/actuation 1 puff inhalation Q4H PRN asthma 12/30/21 aerosol inhaler (ProAir HFA) #8.5 grams cetirizine 10 mg tablet 10 mg PO DAILY #90 tabs 12/30/21 clonazepam 0.5 mg tablet 1 mg (2 x 0.5 mg) PO BID PRN 12/30/21 anxiety #60 tabs montelukast 10 mg tablet 10 mg PO DAILY #90 tabs 12/30/21 (Singulair) gabapentin 300 mg capsule 300 mg PO BEDTIME #30 caps 11/20/23 hydrocodone 5 mg-acetaminophen 325 1 tab PO Q6H PRN pain #10 tabs 11/20/23 mg tablet Allergies Allergy/AdvReac Type Severity Reaction Status Date / Time ciprofloxacin Allergy Mild GI UPSET Verified 07/03/23 16:25 codeine AdvReac Unknown STOMACH Verified 07/03/23 16:25 Review of Systems Review of Systems Narrative: per HPI Patient History Medical History Fatty liver disease, nonalcoholic Premenopausal menorrhagia Obesity, morbid, BMI 40.0-49.9 History of hypercalcemia FHx: diabetes mellitus Elevated fasting blood sugar UTI (urinary tract infection) Seasonal allergies Anxiety Surgical History History of bilateral tubal ligation History of cholecystectomy Family History Father Diabetes mellitus Hypertension Mother Cancer Hypertension Social History marital status: household members: spouse and children Smoking Status: Never smoker alcohol intake: current Smoking Status: Never smoker alcohol intake frequency: holidays/special occasions only Substance Use Type: does not use Exam Narrative Exam Narrative: GENERAL: Well-developed patient, in mild distress. HEAD: Atraumatic. Normocephalic. EYES: Pupils equal round and reactive. Extraocular motions intact. No scleral icterus. No injection or drainage. ENT: Nose without bleeding, purulent drainage. Throat without erythema, tonsillar hypertrophy or exudate. Airway patent. NECK: Trachea midline. Non tender CARDIOVASCULAR: Regular rate and rhythm without murmurs, gallops, or rubs. RESPIRATORY: Clear to auscultation. Breath sounds equal bilaterally. No wheezes, rales, or rhonchi. GASTROINTESTINAL: Abdomen obese, diffuse mild tenderness, no guarding or rebound tenderness, nondistended. No obvious fluid wave. EXTREMITIES: No edema or joint tenderness. BACK: Nontender without deformity or crepitance. No flank tenderness. NEURO: AOx3. Neuro exam nonfocal SKIN: No rash or erythema of visible areas Initial Vital Signs Initial Vital Signs: Vital Signs Temperature 97.9 F 04/28/24 17:45 Pulse Rate 107 H 04/28/24 17:45 Respiratory Rate 16 04/28/24 17:45 Blood Pressure 113/52 L 04/28/24 17:45 Pulse Oximetry 91 04/28/24 17:45 Oxygen Delivery Method Room Air 04/28/24 17:45 Course Orders Ordered: ED Orders 04/28/24 18:00 Complete Blood Count AUTO DIFF Stat Comprehensive Metabolic Panel Stat HCG Quantitative /Beta subunit Stat Lipase Stat 04/28/24 20:11 CT abdomen pelvis w con Stat Discontinued Medications Dicyclomine HCl (Dicyclomine 10 Mg Capsule) 10 mg PO NOW ONE Stop: 04/28/24 19:02 Last Admin: 04/28/24 19:32 Dose: 10 mg Documented By: Sodium Chloride (Normal Saline 0.9%) 1,000 mls @ 1,000 mls/hr IV BOLUS ONE Stop: 04/28/24 18:51 Last Admin: 04/28/24 18:09 Dose: Not Given Documented By: MARILYNN Sodium Chloride (Normal Saline 0.9%) 1,000 mls @ 1,000 mls/hr IV BOLUS ONE Stop: 04/28/24 19:06 Last Infusion: 04/28/24 19:44 Dose: Infused Documented By: Admin: 04/28/24 18:13 Dose: 1,000 mls/hr Documented By: MARILYNN Sodium Chloride (Normal Saline 0.9%) 1,000 mls @ 1,000 mls/hr IV BOLUS ONE Stop: 04/28/24 20:43 Last Infusion: 04/28/24 21:00 Dose: Infused Documented By: Admin: 04/28/24 19:44 Dose: 1,000 mls/hr Documented By: Ketorolac Tromethamine (Ketorolac 30 Mg/Ml Vial) 15 mg IV NOW ONE Stop: 04/28/24 19:40 Last Admin: 04/28/24 19:44 Dose: 15 mg Documented By: Loperamide HCl (Loperamide 2 Mg Capsule) 2 mg PO NOW ONE Stop: 04/28/24 22:01 Morphine Sulfate (Morphine 4 Mg/Ml Inj) 4 mg IV NOW ONE Stop: 04/28/24 19:02 Last Admin: 04/28/24 19:34 Dose: Not Given Documented By: Ondansetron HCl (Ondansetron 4 Mg/2 Ml Inj) 4 mg IV NOW ONE Stop: 04/28/24 18:08 Last Admin: 04/28/24 18:13 Dose: 4 mg Documented By: MARILYNN Ondansetron HCl (Ondansetron 4 Mg Odt Prepack) 1 bottle MISC DIRECTED ONE Stop: 04/28/24 22:00 Last Admin: 04/28/24 22:12 Dose: 1 bottle Documented By: Vital Signs Vital signs: Vital Signs - 8 hr 04/28/24 17:45 04/28/24 18:16 04/28/24 18:17 Temperature 97.9 F Pulse Rate 107 H 117 H Respiratory Rate 16 Blood Pressure 113/52 L Pulse Oximetry 91 98 97 Oxygen Delivery Method Room Air 04/28/24 18:17 04/28/24 18:30 04/28/24 18:30 Temperature Pulse Rate 103 H 110 H Respiratory Rate Blood Pressure 126/72 116/57 L Pulse Oximetry 97 Oxygen Delivery Method 04/28/24 19:00 04/28/24 19:00 04/28/24 19:30 Temperature Pulse Rate 115 H Respiratory Rate Blood Pressure 112/59 L 127/67 Pulse Oximetry 97 Oxygen Delivery Method 04/28/24 19:30 04/28/24 22:13 04/28/24 22:13 Temperature 99.6 F Pulse Rate 111 H 110 H Respiratory Rate 16 Blood Pressure 132/60 Pulse Oximetry 99 97 Oxygen Delivery Method Room Air MDM - Nausea/Vomiting/Diarrhea Lab Data Attestation: I reviewed the patient's lab results. 04/28/24 18:00 04/28/24 18:00 Labs: Lab Results 04/28/24 Range/Units 18:00 WBC 15.4 H (4.5-11.0) X10^3/uL RBC 4.69 (4.0-5.2) X10^6/uL Hgb 13.2 (12.0-16.0) g/dL Hct 39.6 (36-46) % MCV 84.3 (80-100) fL MCH 28.2 (26-34) PG MCHC 33.4 (30-36) % RDW 13.9 (11.6-14.8) % Plt Count 298 (150-400) X10^3/uL Neut % (Auto) 88.4 H (50-75) % Lymph % (Auto) 6.3 L (25-40) % Throckmorton % (Auto) 4.5 (3-14) % Eos % (Auto) 0.4 L (2-4) % Baso % (Auto) 0.4 (0-2) % Neut # (Auto) 53095 H (2499-0010) /uL Lymph # (Auto) 1000 L (9244-6469) /uL Th[place]morton # (Auto) 700 (0-900) /uL Eos # (Auto) 100 (0-450) /uL Baso # (Auto) 100 (0-100) /uL Sodium 137 (137-145) mmol/L Potassium 4.2 (3.4-5.1) mmol/L Chloride 107 (98-107) mmol/L Carbon Dioxide 24 (22-32) mmol/L BUN 12 (7-17) mg/dL Creatinine 0.93 (0.52-1.04) mg/dL Estimated GFR > 60 (>60) mL/min BUN/Creatinine Ratio 12.9 (6-22) Glucose 118 H (70-100) mg/dL Calcium 8.4 (8.4-10.2) mg/dL Total Bilirubin 0.8 (0.2-1.3) mg/dL AST 63 H (14-36) IU/L ALT 34 (<35) IU/L Alkaline Phosphatase 151 H (38-126) U/L Total Protein 7.8 (6.3-8.2) g/dL Albumin 4.0 (3.5-5.0) g/dL Globulin 3.8 (1.7-4.1) g/dL Albumin/Globulin Ratio 1.1 (1.0-2.8) Lipase 154 (23-300) U/L HCG, Quant < 2.39 mIU/mL Point of Care Testing Test Results Negative Urine Dip Bedside Urine Glucose Negative Bedside Urine Bilirubin - Negative Bedside Urine Ketone - Negative Urine Specific Mize 1.010 Bedside Urine Occult Blood - Negative Bedside Urine pH 6.5 Bedside Urine Protein - Negative Bedside Urine Urobilinogen - Negative Bedside Urine Nitrite - Negative Bedside Urine Leukocytes - Negative Esterase Imaging Data CT scan - abdomen/pelvis: Radiologist's Impression: [place] [address] CT Scan Report Signed Patient: Mikki Perez MR#: [id number] : 1975 Acct:[id number] Age/Sex: 49 / F Date of Service: 04/28/24 Loc: ED Accession Number: [id number] Procedure: CT abdomen pelvis w con Ordering Provider: Compa Sheets MD PROCEDURE: CT ABDOMEN PELVIS W CON INDICATIONS: Abdominal pain TECHNIQUE: After the administration of intravenous contrast, axial sections acquired from the lung bases to the pubic symphysis. Coronal and sagittal reformats were performed. For radiation dose reduction, the following was used: automated exposure control, adjustment of mA and/or kV according to patient size. COMPARISON: [facility], CT, CT ABDOMEN PELVIS W CON, 05/24/2023, 7:33. FINDINGS: Image quality: Diagnostic. Lower Chest: No significant findings. ABDOMEN: Liver: No solid mass. Gallbladder: Surgically absent Biliary ducts: No biliary dilation. Pancreas: No ductal dilation. Spleen: Size is within normal limits. Adrenal Glands: No adrenal nodules. Kidneys and Ureters: No hydronephrosis. No solid mass. No complex renal cystic lesion which requires follow up. Stomach and Bowel: Normal colonic caliber, without significant wall thickening. Colonic diverticulosis without acute inflammation. Peritoneum: No abnormal intraperitoneal fluid. No free air. Ventral Wall: No significant ventral hernia. Abdominal Nodes: No retroperitoneal or mesenteric adenopathy by size criteria. Vessels: Aorta and inferior vena cava are normal in size. PELVIS: Pelvic Organs: Unremarkable. Bladder: No bladder wall thickening, accounting for underdistention. Pelvic Nodes: No enlarged lymph nodes. Miscellaneous: No inguinal hernias are seen. Bones: No aggressive osseous abnormality. IMPRESSION: No acute process in the abdomen or pelvis. Colonic diverticulosis without CT evidence of acute diverticulitis. Approved by: Maria Esther Herrera M.D.,Ph.D. on 04/28/2024 at 21:37 MDM Narrative Medical decision making narrative: 49-year-old female with numerous episodes vomiting and diarrhea, no black or red color, afebrile, tachycardia noted, screening labs include elevated white blood cell count, diffuse tenderness abdomen, hCG negative. No stool specimen received for evaluation, stool studies had been ordered. Clinically suspect gastroenteritis, however elevated white blood cell count and tenderness and tachycardia despite IV fluid bolus. Patient having pain, requesting pain medications, IV morphine. CT abdomen and pelvis ordered. HCG negative, patient is still having pain, CT abdomen and pelvis ordered CT abdomen and pelvis no acute changes. No stool specimen received for testing. Symptoms most consistent with acute gastroenteritis, family members with similar symptoms. Home pack Zofran ODT. P.o. loperamide, [id number] loperamide to use as needed, though no stool produced here for many hours. Discharged home, return precautions discussed Critical Care Time Critical Care Time Critical Care Time: Yes Total Critical Care Time: 31 Attestation: The high probability of a clinically significant, sudden or life threatening deterioration of the [gastrointestinal, abdominopelvic, genitourinary] system(s) required my full and direct attention, intervention and personal management. The aggregate critical care time was [31] minutes. This time is in addition to time spent performing reported procedures but includes the following: [x] Data Review and interpretation [x] Patient assessment and monitoring of vital signs [x] Documentation [x] Medication orders and management Discharge Plan Departure Patient Disposition: Home Clinical Impression: Nausea vomiting and diarrhea, Abdominal pain Activity Restrictions/Additional Instructions: Nausea vomiting diarrhea, family members with similar symptoms, abdominal pain, CT scan showed no acute changes. Stool specimen ordered for lab testing, no specimen ever sent to lab. Clinically suspect viral gastroenteritis symptoms at this time, which should resolve without antibiotics. Loperamide oral dose given to help prevent diarrhea, which can be taken as needed for diarrhea control [id number].. Zofran antinausea medication also given. Home pack of Zofran oral dissolvable tablets for nausea control on discharge. Encouraged to drink plenty of fluids. Take Tylenol and or Motrin as needed for abdominal discomfort. Recheck with your regular provider in the next couple of days if symptoms not resolved. Return earlier to this/nearest emergency department for any change worsening symptoms or any concerns prior Prescriptions: No Action clonazepam 0.5 mg tablet 1 mg PO BID PRN (Reason: anxiety) Qty: 60 2RF albuterol sulfate [ProAir HFA] 90 mcg/actuation HFA aerosol inhaler 1 puff INHALATION Q4H PRN (Reason: asthma) Qty: 8.5 0RF Patient Comments: takes when wakes up montelukast [Singulair] 10 mg tablet 10 mg PO DAILY Qty: 90 3RF cetirizine 10 mg tablet 10 mg PO DAILY Qty: 90 3RF lisinopril 10 mg tablet 20 mg PO DAILY Patient Comments: Rx per Dr Lr according to [facility] hydrocodone-acetaminophen 5-325 mg tablet 1 tab PO Q6H PRN (Reason: pain) Qty: 10 0RF gabapentin 300 mg capsule 300 mg PO BEDTIME Qty: 30 0RF Referrals: Abisai Perez DO [Primary Care Provider] - Stand Alone Forms: Patient Portal/API
[2024-04-28] MEDS: DICYCLOMINE 10 MG CAPSULE PO (19:32)
[2024-04-28] MEDS: KETOROLAC 30 MG/ML VIAL 15 MG IV (19:44)
[2024-04-28 20:09] LABS: HCG Quantitative /Beta subunit < 2.39 mIU/mL
--- NOTE | 2024-04-28 20:11 | DI.CT.S_ITS ---
PROCEDURE: CT ABDOMEN PELVIS W CON INDICATIONS: Abdominal pain TECHNIQUE: After the administration of intravenous contrast, axial sections acquired from the lung bases to the pubic symphysis. Coronal and sagittal reformats were performed. For radiation dose reduction, the following was used: automated exposure control, adjustment of mA and/or kV according to patient size. COMPARISON: [facility], CT, CT ABDOMEN PELVIS W CON, 05/24/2023, 7:33. FINDINGS: Image quality: Diagnostic. Lower Chest: No significant findings. ABDOMEN: Liver: No solid mass. Gallbladder: Surgically absent Biliary ducts: No biliary dilation. Pancreas: No ductal dilation. Spleen: Size is within normal limits. Adrenal Glands: No adrenal nodules. Kidneys and Ureters: No hydronephrosis. No solid mass. No complex renal cystic lesion which requires follow up. Stomach and Bowel: Normal colonic caliber, without significant wall thickening. Colonic diverticulosis without acute inflammation. Peritoneum: No abnormal intraperitoneal fluid. No free air. Ventral Wall: No significant ventral hernia. Abdominal Nodes: No retroperitoneal or mesenteric adenopathy by size criteria. Vessels: Aorta and inferior vena cava are normal in size. PELVIS: Pelvic Organs: Unremarkable. Bladder: No bladder wall thickening, accounting for underdistention. Pelvic Nodes: No enlarged lymph nodes. Miscellaneous: No inguinal hernias are seen. Bones: No aggressive osseous abnormality. IMPRESSION: No acute process in the abdomen or pelvis. Colonic diverticulosis without CT evidence of acute diverticulitis. Approved by: Maria Esther Herrera M.D.,Ph.D. on 04/28/2024 at 21:37
[2024-04-28] MEDS: ONDANSETRON 4 MG ODT PREPACK 1 BOTTLE MISC (22:12)
== END 2024-04-28 22:19 | disposition home or self-care (01) ==
PROVIDERS: Emergency Medicine; Emergency Provider Emergency Medicine; PCP Family Medicine
DX: R11.2 Nausea with vomiting, unspecified (principal); R19.7 Diarrhea, unspecified; R10.9 Unspecified abdominal pain
CPT/HCPCS: 74177; 80053; 81003; 81025; 83690; 84702; 85025; 96374; 96375; 99284; J1885; J2405; Q9967

== ENCOUNTER → 2025-02-26 08:33 | Outpatient (CLI) | payer OTHER, SELFPAY ==
[2023-06-20 06:22] VITALS: BMI 46.8
--- NOTE | 2025-02-26 08:35 | DI.US.S_ITS ---
PROCEDURE: US ABDOMEN COMPLETE INDICATIONS: Prediabetic, obesity, elevated liver enzymes TECHNIQUE: Real-time scanning was performed of the abdominal and retroperitoneal organs, with image documentation. COMPARISON: [facility], CT, CT ABDOMEN PELVIS W CON, 04/28/2024, 20:19. FINDINGS: Liver: Liver is diffusely increased in echogenicity. No focal hepatic abnormalities identified. Normal hepatic size. Gallbladder: Prior cholecystectomy. Biliary ducts: Not well seen. Pancreas: Not well seen. Miscellaneous: No free abdominal fluid. IMPRESSION: Increased hepatic echogenicity likely related to hepatic steatosis; however other hepatocellular disease processes cannot be excluded and clinical correlation is recommended. Dictated by: Rubén ROMERO Interpreted: Jing Avalos MD on 02/26/2025 at 10:12 Transcribed by: YASH on 02/26/2025 at 10:13 Approved by: Jing Avalos M.D. on 02/26/2025 at 21:53
== END ==
LOC: US 08:34
PROVIDERS: PCP Family Medicine; Referring Provider Nurse Practitioner Family; Visit Provider Nurse Practitioner Family
DX: E66.01 Morbid (severe) obesity due to excess calories (principal); R73.03 Prediabetes; R74.8 Abnormal levels of other serum enzymes; Z90.49 Acquired absence of other specified parts of digestive tract
CPT/HCPCS: 76705